=== PATIENT | female | born 1965 | race Caucasian/White ===

== ENCOUNTER 2018-02-02 17:30 | Emergency (ER) | payer OTHER ==
[~2018-02-02] VITALS: Ht 160 cm; Wt 77.1 kg
[2018-02-02 17:33] VITALS: Ht 160 cm; Wt 77.1 kg
--- NOTE | 2018-02-02 18:06 | EMERGENCY ROOM VISIT NOTE ---
History Report prepared by Rashel: Derrick Gamino Under the Supervision of: Dr. Katlin Morse D.O. First contact with patient: 17:40 Chief Complaint: MEDICATION REFILL REQUEST Stated Complaint: HAS NOT TAKEN MEDICATION FOR BIPOLAR DISORDER History of Present Illness The patient is a 52 year old female who presents to the Emergency Room with complaints of constant medication noncompliance for the past couple of months for her history of bipolar disorder. Patient is present with her daughter. Daughter states the patient has had "3 manic" episodes and intermittent "hyperness" during this period, which the patient states eventually resolved on its own. Daughter states she would like a "doctor to tell her mother to take her medication". Patient states she is supposed to 200mg of Lamictal and 750mg of [place]. Patient states she weaned off her medication because of the side effects she was experiencing, such as weight gain. Patient states she was not "feeling like herself". She states she wants to take her medication and would like to be followed by a psychiatrist in [place] who could "help her with her medication and dosing". Daughter states that her and her mother just moved to [place]. Patient states she is currently followed by a psychiatrist in [place] named Dr. Welch. She states she did not tell him about not taking her medication. Patient denies bowel/urinary symptoms, headaches, SI, and HI. Denies any recent illness or injury. Denies chest pain or trouble breathing. Source of History: patient, family (Daughter) Onset: Couple of months ago Position: head Timing: constant Modifying Factors (Relieving): other (None) Associated Symptoms: No headache, No urinary symptoms Note: Negative SI, HI, or bowel symptoms. Review of Systems See HPI for pertinent positives & negatives. A total of 10 systems reviewed and were otherwise negative. Past Medical & Surgical Medical Problems: (1) Bipolar disorder Surgical Problems: (1) History of appendectomy Family History FHx: cancer Heart disease Hypertension Lung disease Social History Smoking Status: Never Smoker Marital Status: Housing Status: lives with family Physical Exam Vital Signs Date Time Temp Pulse Resp B/P (MAP) Pulse Ox O2 Delivery O2 Flow Rate FiO2 02/02/18 19:05 37.0 77 18 170/91 94 02/02/18 17:33 37.0 77 18 186/91 94 Room Air Physical Exam GENERAL: alert, well appearing, well nourished, no distress, non-toxic EYE EXAM: normal conjunctiva, PERRL and EOM's grossly intact OROPHARYNX: no exudate, no erythema, lips, buccal mucosa, and tongue normal and mucous membranes are moist NECK: supple, no nuchal rigidity, no adenopathy, non-tender LUNGS: Clear to auscultation. Normal chest wall mechanics, no w/r/r HEART: no murmurs, S1 normal and S2 normal ABDOMEN: abdomen soft, non-tender, normo-active bowel sounds, no masses, no rebound or guarding. BACK: Back is symmetrical on inspection and there is no deformity, no midline tenderness, no CVA tenderness. SKIN: no rashes and no bruising UPPER EXTREMITIES: upper extremities are grossly normal. Full range of motion, normal pulses. LOWER EXTREMITIES: No pitting edema. Full range of motion, normal pulses. NEURO EXAM: Normal sensorium, cranial nerves II-XII grossly intact, normal speech, no gross weakness of arms, no gross weakness of legs. Normal gait, no ataxia, no facial droop. Medical Decision & Procedures ED Course 1800: The patient was evaluated in room A5. A complete history and physical exam was performed. 1815: Upon reevaluation, the patient is feeling better. I discussed the findings and the treatment plan with the patient. She verbalizes agreement and understanding. She was discharged home. Medical Decision Differential diagnosis: Etiologies such as mood disorder, infection, hypoglycemia, electrolyte abnormalities, cardiac sources, intracerebral event, toxicologic, neurologic, as well as others were entertained. Patient given additional outpatient referrals by psychiatric rn case manager hospice, Eze , regarding local psychiatrists accepting new patients. Patient well-appearing here, had no physical complaints. Discussed with her that I feel she is better served seeing her psychiatrist first before restarting medications they may want to start her at lower doses or on new medications altogether. Patient and daughter verbalized understanding of this and were planned. Patient denied any SI or HI here. Patient is not having significant scattered thoughts, flight of ideas, or inappropriate emotional responses. I feel patient is safe to be discharged to close outpatient follow-up. I did discuss with her symptoms to watch and return for, she verbalized understanding. Medication Reconcilliation Current Medication List: was personally reviewed by me Blood Pressure Screening Patient's blood pressure: Elevated blood pressure Blood pressure disposition: Elevated BP felt to be situational Impression Primary Impression: Bipolar disorder Additional Impression: Non-compliance Scribe Attestation The scribe's documentation has been prepared under my direction and personally reviewed by me in its entirety. I confirm that the note above accurately reflects all work, treatment, procedures, and medical decision making performed by me. Departure Information Dispostion Home / Self-Care Referrals No Doctor, Assigned (PCP) Patient Instructions My [facility] Additional Instructions Please continue your efforts to establish a local psychiatrist. Please do not ever stop taking medications without discussion with your doctor. If you have any new or concerning symptoms, have thoughts of wanting to hurt yourself or someone else, feel you are not thinking clearly or unable to make appropriate decisions, you have any other new concerns, please return the emergency room. Problem Qualifiers Primary Impression: Bipolar disorder Active/Remission status: currently active Current bipolar episode type: mixed Current episode severity: moderate Qualified Codes: F31.62 - Bipolar disorder, current episode mixed, moderate
[2018-02-02 19:05] VITALS: BP 170/91; PULSE 77; TEMP 37; O2SAT 94
[2018-02-02] MEDS ORDERED: LISI-461 PO ×2 (22:19)
[2018-02-02] MEDS ORDERED: LAMO100T16 PO ×2 (22:19)
[2018-02-02] MEDS ORDERED: LITH150C6 PO ×2 (22:19)
[2018-02-02] MEDS ORDERED: CHOL2000 PO ×2 (22:19)
[2018-02-02] MEDS ORDERED: LTHSR/300 PO ×2 (22:19)
[2018-02-02] MEDS ORDERED: LEVO88TA3 PO ×2 (22:19)
== END 2018-02-02 18:00 | disposition home or self-care (01) ==
LOC: C.EDB 17:32 → MERGE 17:32 → C.EDA 18:00
DX: Z91.14 Patient's other noncompliance with medication regimen (principal); F31.62 Bipolar disorder, current episode mixed, moderate

== ENCOUNTER 2018-02-02 20:27 | Inpatient (IN) | payer OTHER ==
[~2018-02-02] VITALS: Ht 160 cm; Wt 76.2 kg
[2018-02-02] MEDS ORDERED: PROCHLORPERAZINE 5 MG/ML 2 ML VIAL IV STA (21:02)
[2018-02-02] MEDS ORDERED: DiphenhydrAMINE HCL 50 MG/ML VIAL IV STA (21:02)
[2018-02-02] MEDS ORDERED: SODIUM CHLORIDE 0.9% 1000ML 1,000 ML IV ONE (21:02)
--- NOTE | 2018-02-02 21:08 | EMERGENCY ROOM VISIT NOTE ---
History Report prepared by Rashel: Sandy Solomon Under the Supervision of: Dr. Tima Poole M.D. First contact with patient: 20:47 Chief Complaint: HEADACHE Stated Complaint: HTN, HEADACHE, ANXIETY History of Present Illness The patient is a 52 year old female who presents to the Emergency Room with complaints of a severe, constant headache beginning about 1 hour ago. She states her "head is splitting open" and notes it came on suddenly. The patient nausea, trouble breathing, numbness, trembling, vision abnormalities or fevers. She was seen in the ED earlier today for anxiety, and expressed a desire to begin taking lithium again. The patient notes she took 750 mg lithium once she got home from the ED today. Her daughter notes the patient has a PCP but no regular psychiatrist as they are new to the area. The patient notes she takes Lisinopril for HTN but is unsure if she took it today. Her daughter notes the patient has had similar episodes of anxiety in the past, and was admitted to the hospital a few years ago for bipolar disorder and difficulties starting new medications. The patient and her daughter both believe the patient could benefit from an inpatient stay for anxiety. Source of History: patient, family (daughter) Onset: 1 hour ago Position: head Symptom Intensity: severe Quality: other (headache) Timing: constant Associated Symptoms: No fevers, No nausea, No numbness Note: Denies: trouble breathing, vision abnormalities, trembling Review of Systems See HPI for pertinent positives and negatives. A total of ten systems were reviewed and were otherwise negative. Past Medical & Surgical Medical Problems: (1) Bipolar disorder Surgical Problems: (1) History of appendectomy Family History FHx: cancer Heart disease Hypertension Lung disease Social History Smoking Status: Never Smoker Marital Status: Housing Status: lives with family Occupation Status: unemployed Current/Historical Medications Scheduled Cholecalciferol (Vitamin D3), 2,000 INTER.UNIT PO DAILY Lamotrigine (Lamictal), 200 MG PO DAILY Levothyroxine Sodium (Levothyroxine Sodium), 88 MCG PO DAILY Lisinopril (Zestril), 10 MG PO DAILY Miguel Barrera Carbonate (Miguel Barrera Carbonate), 150 MG PO DAILY Miguel Barrera Carbonate (Miguel Barrera Carbonate), 600 MG PO DAILY Physical Exam Vital Signs Date Time Temp Pulse Resp B/P (MAP) Pulse Ox O2 Delivery O2 Flow Rate FiO2 02/02/18 21:50 97 16 161/117 97 Room Air 02/02/18 20:50 67 02/02/18 20:39 36.6 75 20 173/93 95 Room Air Physical Exam GENERAL: Awake, alert, laying on stretcher, covering her face. HENT: Normocephalic, atraumatic. Oropharynx unremarkable. EYES: Normal conjunctiva. Sclera non-icteric. NECK: Supple. No nuchal rigidity. RESPIRATORY: Clear to auscultation. No wheezes. Normal respiratory effort. CARDIAC: Tachycardic. Normal rhythm. Extremities warm and well perfused. GI: Soft, non-distended. No tenderness to palpation. No rebound or guarding. No masses. RECTAL: Deferred. MUSCULOSKELETAL: Atraumatic. Chest examination reveals no tenderness. There is no CVA tenderness to palpation. LOWER EXTREMITIES: Calves are equal size bilaterally and non-tender. No edema NEURO: Normal sensorium. No sensory or motor deficits noted. No facial droop. SKIN: Warm and dry. No rash or jaundice noted. PSYCH: Denies SI, HI, hallucinations. Not responding to external stimuli. Occasionally laughing inappropriately. Medical Decision & Procedures Laboratory Results 02/02/18 21:44 Red Blood Count 4.80, Mean Corpuscular Volume 83.1, Mean Corpuscular Hemoglobin 28.5, Mean Corpuscular Hemoglobin Concent 34.3, Mean Platelet Volume 9.2, Neutrophils (%) (Auto) 56.9, Lymphocytes (%) (Auto) 34.8, Monocytes (%) (Auto) 5.1, Eosinophils (%) (Auto) 2.4, Basophils (%) (Auto) 0.6, Neutrophils # (Auto) 5.07, Lymphocytes # (Auto) 3.10, Monocytes # (Auto) 0.45, Eosinophils # (Auto) 0.21, Basophils # (Auto) 0.05 02/02/18 21:44 Test 02/02/18 20:31 02/02/18 21:44 Urine Color YELLOW Urine Appearance CLEAR (CLEAR) Urine pH 5.5 (4.5-7.5) Urine Specific [place] 1.011 (1.000-1.030) Urine Protein NEG (NEG) Urine Glucose (UA) NEG (NEG) Urine Ketones 1+ (NEG) Urine Occult Blood NEG (NEG) Urine Nitrite NEG (NEG) Urine Bilirubin NEG (NEG) Urine Urobilinogen NEG (NEG) Urine Leukocyte Esterase NEG (NEG) Urine Opiates Screen NEG (NEG) Urine Methadone, Qualitative NEG (NEG) Urine Barbiturates NEG (NEG) Urine Phencyclidine (PCP) Level NEG (NEG) Ur Amphetamine/Methamphetamine NEG (NEG) MDMA (Ecstasy) Screen NEG (NEG) Urine Benzodiazepines Screen NEG (NEG) Urine Cocaine Metabolite NEG (NEG) Urine Marijuana (THC) NEG (NEG) White Blood Count 8.90 K/uL (4.8-10.8) Red Blood Count 4.80 M/uL (4.2-5.4) Hemoglobin 13.7 g/dL (12.0-16.0) Hematocrit 39.9 % (37-47) Mean Corpuscular Volume 83.1 fL (80-100) Mean Corpuscular Hemoglobin 28.5 pg (25-34) Mean Corpuscular Hemoglobin Concent 34.3 g/dl (32-36) Platelet Count 259 K/uL (130-400) Mean Platelet Volume 9.2 fL (7.4-10.4) Neutrophils (%) (Auto) 56.9 % Lymphocytes (%) (Auto) 34.8 % Monocytes (%) (Auto) 5.1 % Eosinophils (%) (Auto) 2.4 % Basophils (%) (Auto) 0.6 % Neutrophils # (Auto) 5.07 K/uL (1.4-6.5) Lymphocytes # (Auto) 3.10 K/uL (1.2-3.4) Monocytes # (Auto) 0.45 K/uL (0.11-0.59) Eosinophils # (Auto) 0.21 K/uL (0-0.5) Basophils # (Auto) 0.05 K/uL (0-0.2) RDW Standard Deviation 38.7 fL (36.4-46.3) RDW Coefficient of Variation 12.8 % (11.5-14.5) Immature Granulocyte % (Auto) 0.2 % Immature Granulocyte # (Auto) 0.02 K/uL (0.00-0.02) Anion Gap 8.0 mmol/L (3-11) Est Creatinine Clear Calc Drug Dose 103.6 ml/min Estimated GFR () 119.7 Estimated GFR (Non- 103.3 BUN/Creatinine Ratio 18.6 (10-20) Calcium Level 9.9 mg/dl (8.5-10.1) Total Bilirubin 0.5 mg/dl (0.2-1) Direct Bilirubin 0.1 mg/dl (0-0.2) Aspartate Amino Transf (AST/SGOT) 53 U/L (15-37) Alanine Aminotransferase (ALT/SGPT) 52 U/L (12-78) Alkaline Phosphatase 80 U/L (45-117) Total Protein 7.5 gm/dl (6.4-8.2) Albumin 4.3 gm/dl (3.4-5.0) Thyroid Stimulating Hormone (TSH) 1.590 uIu/ml (0.300-4.500) Miguel Barrera Level 0.6 mMOL/L (0.6-1.2) Ethyl Alcohol mg/dL < 3.0 mg/dl (0-3) Laboratory results reviewed by me Medications Administered Medications (Trade) Dose Ordered Sig/Sergio Route Start Time Stop Time Status Last Admin Dose Admin Diphenhydramine HCl (Benadryl Inj) 50 mg NOW STAT IV 02/02/18 21:02 02/02/18 21:05 DC 02/02/18 21:48 50 MG Prochlorperazine Edisylate (Compazine Inj) 5 mg NOW STAT IV 02/02/18 21:02 02/02/18 21:05 DC 02/02/18 21:49 5 MG Sodium Chloride 1,000 ml @ 999 mls/hr Q1H1M ONCE IV 02/02/18 21:02 02/02/18 22:02 DC 02/02/18 21:49 999 MLS/HR ECG Per My Interpretation Indication: other (HTN) Rate (beats per minute): 69 Rhythm: normal sinus Findings: other (no ST segment elevation. normal axis. ) Comparison ECG Date: no prior available ED Course 2050: The patient was evaluated in room B10. A complete history and physical exam was performed. 2101: Ordered Sodium Chloride 1000 ml @ 999 mls/hr IV, Compazine Inj 5 mg IV, Benadryl Inj 50 mg IV. 2200: I reevaluated the patient and updated her and her family. 5: Upon reevaluation, the patient is experiencing improvement of her headache. She is ambulating to the bathroom. 0015: Patient continues to have odd behavior and after psychiatric liaison evaluation feel that she requires inpatient care. 0028: Patient signs 201. 0030: Signed out to production supervisor off shift MD Omer. Medical Decision Etiologies such as migraine headache, meningitis, sinusitis, CO exposure, ICH, SAH, tumor, sinus thrombosis, arterial dissection, mood disorder, infection, hypoglycemia, electrolyte abnormalities, cardiac sources, intracerebral event, toxicologic, neurologic, as well as others were entertained. Patient presents from home today complaining of headache and feeling extremely anxious. Was seen here earlier today and has a history of bipolar disorder off her medications. Her home and took her lithium and began to experience some headache and being more anxious. Was previously offered her psychotropic medications for months. Lives at home with her adult daughter and 2 teenage sons. Adult daughter has serious concerns about taking her home. Patient denies any SI or HI. Prior history of multiple inpatient psychiatric stays. Blood pressure is elevated and she is unsure she took her blood pressure medicine today. No trauma. Doubt subarachnoid hemorrhage or stroke. Treated symptomatically here with some Benadryl and a little bit of Compazine with improvement. Patient is inappropriate laughing during exam. No SI or HI but I believe inpatient psychiatric care for her anxiety and psychosis is indicated. Will have psychiatric case liaison evaluate her as well. Miguel Barrera level nontoxic. Medical workup is benign. Patient extremely anxious initially planned for head CT but after treatment she felt improved and do not believe it is medically necessary. Give home dose of lisinopril; states she thinks that she missed her dose today. Feel she is medically cleared for inpatient psychiatric care if she is deemed appropriate for that. Patient on re- evaluation continues to behave somewhat bizarrely with an appropriate laughter at times. Feel that her ability to care for herself is compromised. Feel that inpatient psychiatric care is warranted at this time for anxiety and traci. Patient signed 201, but 302 grounds exist. Patient to be evaluated by her inpatient psychiatric team here for possible admission here. Bed search will otherwise be conducted she requires inpatient psychiatric care. Medication Reconcilliation Current Medication List: was personally reviewed by me Blood Pressure Screening Patient's blood pressure: Elevated blood pressure Blood pressure disposition: Referred to PCP Impression Primary Impression: Anxiety Additional Impression: HTN (hypertension) Scribe Attestation The scribe's documentation has been prepared under my direction and personally reviewed by me in its entirety. I confirm that the note above accurately reflects all work, treatment, procedures, and medical decision making performed by me. Departure Information Dispostion Other Referrals No Doctor, Assigned (PCP) Forms HOME CARE DOCUMENTATION FORM, IMPORTANT VISIT INFORMATION Patient Instructions My [facility] Problem Qualifiers
[2018-02-02 22:04] LABS: BASO % 0.6 %; BASO ABS # 0.05 K/uL (0-0.2); EOS % 2.4 %; EOS ABS # 0.21 K/uL (0-0.5); HEMATOCRIT 39.9 % (37-47); HEMOGLOBIN 13.7 g/dL (12.0-16.0); IG# 0.02 K/uL (0.00-0.02); LYMPH % 34.8 %; MEAN CELL VOLUME 83.1 fL (80-100); MEAN CORPUSCULAR HEMOGLOBIN 28.5 pg (25-34); MEAN CORPUSCULAR HGB CONC 34.3 g/dl (32-36); MEAN PLATELET VOLUME 9.2 fL (7.4-10.4); MONO % 5.1 %; MONO ABS # 0.45 K/uL (0.11-0.59); NEUT % 56.9 %; NEUT ABS # 5.07 K/uL (1.4-6.5); PLATELET COUNT 259 K/uL (130-400); RED CELL DISTRIBUTION WIDTH CV 12.8 % (11.5-14.5); RED CELL DISTRIBUTION WIDTH SD 38.7 fL (36.4-46.3)
[2018-02-02] MEDS ORDERED: LAMO100T16 PO ×2 (22:19)
[2018-02-02] MEDS ORDERED: LITH150C6 PO ×2 (22:19)
[2018-02-02] MEDS ORDERED: LTHSR/300 PO ×2 (22:19)
[2018-02-02] MEDS ORDERED: LEVO88TA3 PO ×2 (22:19)
[2018-02-02] MEDS ORDERED: CHOL2000 PO ×2 (22:19)
[2018-02-02] MEDS ORDERED: LISI-461 PO ×2 (22:19)
[2018-02-02 22:32] LABS: ALBUMIN 4.3 gm/dl (3.4-5.0); CALCIUM 9.9 mg/dl (8.5-10.1); CREATININE 0.64 mg/dl (0.60-1.20); POTASSIUM 3.4 mmol/L (3.5-5.1); TOTAL PROTEIN 7.5 gm/dl (6.4-8.2)
[2018-02-03] MEDS ORDERED: LISINOPRIL 5 MG TAB ONE (00:39)
[2018-02-03] MEDS ORDERED: LISINOPRIL 10 MG TAB PO ONE (00:45)
[2018-02-03] MEDS ORDERED: NURSING VERBAL MED ORDER ONE ×4 (02:00→21:00)
[2018-02-03 02:25] VITALS: O2SAT 98
[2018-02-03] MEDS ORDERED: PATIENT'S ALLERGY INFO NEEDS ENTERED SCH (02:30)
--- NOTE | 2018-02-03 02:32 | EMERGENCY ROOM VISIT NOTE ---
ED Visit Note This case was signed out to me at change of shift awaiting bed placement. Dr. Poole explained that the patient would require inpatient psychiatric care. She had signed a 201. The patient was being evaluated by staff from [facility] They communicated with the emergency department psychiatric transplant case manager that they were unsure whether the patient would meet criteria for inpatient psychiatric care. I evaluated the patient at that time and she exhibited bizarre behavior. She was laughing inappropriately during my conversation with her and her daughter. She was making unintelligible sounds and bizarre word patterns. I could not redirect her easily. In fact she was unable to answer any of my questions except when I asked her if she felt she needed some inpatient psychiatric care she said "definitely." I am concerned that the patient is unable to care for herself at home. Her young daughter is unable to care for her at home. I discussed the case with the staff from [facility] the ediscovery project manager, and Dr. Marrufo. She is willing to admit herself voluntarily. She has been accepted to [facility].
[2018-02-03] MEDS ORDERED: ALUMINUM/MAGNESIUM SUSP 30 ML UDC PO PRN (03:15)
[2018-02-03] MEDS ORDERED: BISMUTH SUBSALICYLATE PER ML OMNICELL CHARGE PO PRN (03:15)
[2018-02-03] MEDS ORDERED: SODIUM CHLORIDE 0.65% NA SOLN 45 ML (OCEAN) PRN (03:15)
[2018-02-03] MEDS ORDERED: MAGNESIUM HYDROXIDE SUSP 30 ML UDC PO PRN (03:15)
[2018-02-03] MEDS ORDERED: ACETAMINOPHEN 325 MG TAB PO PRN (03:15)
[2018-02-03] MEDS ORDERED: hydrOXYzine HCL 25 MG TAB PO PRN (03:15)
[2018-02-03 05:05] VITALS: BP 164/98; PULSE 75; TEMP 36.3; Ht 160 cm; Wt 76.2 kg
[2018-02-03] MEDS: hydrOXYzine HCL 25 MG TAB PO PRN ×2 (06:31→16:28)
[2018-02-03] MEDS: LISINOPRIL 10 MG TAB PO SCH (08:12)
[2018-02-03] MEDS: LEVOTHYROXINE 88 MCG TAB PO SCH (08:12)
[2018-02-03] MEDS: RISPERIDONE 0.5 MG TAB PO PRN ×3 (08:12→17:37)
--- NOTE | 2018-02-03 09:10 | Psychiatric History & Physical ---
History Date of Service Feb 03, 2018. Identifying Data China Sotelo is a 52-year-old admitted on who currently lives in [place] with her children, has a history of bipolar disorder, and presented with traci in the context of medication noncompliance. She was admitted on a 201 voluntary admission, after 2 presentations to the emergency room in <24 hours. Chief Complaint "I had to relax, I didn't want to rest, my kids, I don't know, I'm very confused ". History of Present Illness According to ER records, the patient initially presented yesterday evening requesting medication refills for lamotrigine 200 mg daily and lithium 750 mg daily, reporting a history of bipolar disorder and stating she had been noncompliant with medications for an unclear amount of time; later stated she stopped her medications while she was in [place] visiting relatives, and returned to [place] January 16. Her daughter accompanied her and reported that the patient has had several manic episodes since stopping her medications, and wanted a "doctor to tell her to take her medication." The patient said she had stopped the medications on her own due to weight gain, but was not "feeling like herself," and wanted to resume medication and follow-up with a local psychiatrist. She reported previously being seen by a psychiatrist, Dr. Ventura, in [place], but had not set up services since moving to [place]. Her exam was normal, and she was discharged with advice to follow up with her psychiatrist before restarting medications due to concerns about appropriate doses, and to arrange follow-up with a local psychiatrist. She represented to the emergency room within hours, reporting a severe headache and anxiety, stating she had gone home and taken 750 mg of lithium. It was unclear if she was taking her home antihypertensives, and blood pressure was 173/93. She received IV fluids, Compazine, and diphenhydramine, and headache improved. Her daughter endorse concerns about taking her home, stating she had not slept in several days, and patient was hyperverbal, appeared to be responding to internal stimuli, behaving bizarrely and laughing inappropriately during the exam. At time she was incoherent, switching between Latvian and Nicaraguan, and could not answer basic questions appropriately. She agreed to voluntary admission, and after arriving on the unit, was labile, hyperverbal, endorsed racing thoughts, auditory hallucinations of voices, poor sleep, irritability, restlessness, and inability to function. She appeared distressed and was wailing at times. She slept poorly, and received hydroxyzine and risperidone 0.5 mg as needed. She was placed in a medically necessary private room due to her behavior, as she has been loud, pacing, hyperverbal, and extremely distraught. On my assessment, she was initially in her room, confused and having difficulty dressing herself, and took an extended period of time to get to the interview room. She states she does not need an human geography instructor, as she speaks and understands Nicaraguan well. Reports a history of bipolar type I diagnosed around age 46, stating "I was in the shower for an extended period of time, didn't want to get out, I was numb, was crying and crying..." She progresses to talk about pictures of Mickey, the number 39, while rocking back and forth. She is often unable to answer questions directly, or answers with unrelated information. She describes mood as "a mess," for about the past 3 weeks since she returned from [place]. Says mood was good in [place], and she went off her medication while there, "I think it was when I went to this concert with my son. 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 at [employer], reciting his email address, and then talking about a cook. She endorses racing thoughts, confusion, feeling overwhelmed, poor sleep , feeling distraught, and AH. Describes AH of "my grandpa, in my dreams, the best feeling, my hands like this." She is unsure if this occurs when she is asleep or awake. She reports feeling anxious, cannot clarify further. Denies thoughts of harming herself or others. She cannot state how we can help her here , saying "can I lay down?" then saying "no, no we need to do it now, time is wasting!" She wants me to contact Dr. Putnam (sp?) but cannot tell me who that is or where he practices. Past Psychiatric History Current OP Treatment: psychiatrist (Dr. Sulaiman Welch in [place] - states she last saw him 01/21/18) Prior Psych Hospitalizations: other (3 psychiatric hospitalizations in the past 8 years -[facility] in [place] and 2015 or 16, [facility] in [facility] in 2013, and [facility] in [place] in 2009.) Access to a Gun: No Suicide Attempts: No Past Medication Trials Include but not limited to: Wayside and lamotrigine as above - was on this combo about 7 years, took herself off of them in the past couple of months without informing her outpatient psychiatrist. Depakote - unsure who prescribed it or when, possibly during previous hospitalization - "it scared me to ," cannot clarify further. risperidone - unsure when, thinks she "was on it once." alprazolam - "for relaxation, but I couldn't drive with it." temazepam - for sleep unsure if there were others Past Medical/Surgical History (1) HTN (hypertension) (2) Overweight (BMI 25.0-29.9) PCP Dr. Garima Bolton Allergies Allergies: Coded Allergies: No Known Allergies (Unverified , 02/03/18) patient states she has no known drug or food allergies Home Medications Scheduled Cholecalciferol (Vitamin D3), 2,000 INTER.UNIT PO DAILY Lamotrigine (Lamictal), 200 MG PO DAILY Levothyroxine Sodium (Levothyroxine Sodium), 88 MCG PO DAILY Lisinopril (Zestril), 10 MG PO DAILY Wayside Carbonate (Wayside Carbonate), 150 MG PO DAILY Wayside Carbonate (Wayside Carbonate), 600 MG PO DAILY Family History FHx: cancer Heart disease Hypertension Lung disease History of Suicide: No History of Substance Abuse: No Psychiatric History: Yes (Aunt with depression and uncle with bipolar disorder. ) Alcohol Use Alcohol Use In Past 12 Months: Yes (drinks wine in social settings; once a month or less, typically 1 drink. Denies any history of problems related to alcohol intake.) AUDIT Total Score: 1 Smoking Use Smoking Status: Never Smoker Substance History Denies abusing substances or use of recreational drugs. Personal History Lives in: [place] with her 3 children Childhood: From [place]. Moved to the [place] 1992 - [place]. Lived in [place] in the late , and again moved to [place] in 02/2017, when asked why, states "I don't know, I felt it...that's crazy, that's crazy, it doesn't make sense." Education: advanced degree (Master's) Work History: Unemployed. 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 Cannot give further information, tearful when asked about employment history, talking about "that's when I saw him..." Says her parents support her financially. Relationship History: (Patient states she is divored, then says she is . She wants to know if her is here.) Children: 21-year-old daughter, and 2 sons ages 16 and 14 Legal History: none Psychological Trauma History: Denies Hx Traumatic Event Review of Systems 10 systems reviewed, +tiredness, others negative except as stated above. Examination Physical Examination A physical exam was performed in the ER prior to admission to the unit by Dr Tima Poole. I accept that physical as correct/medical clearance for the inpatient physical exam. Mental Examination During interview pt is: cooperative Appearance: appropriately groomed, other (bizarre dress - has sweater on inside out, with arms inside the body) Eye contact is: fair Motor behavior is: steady gait & station (slowed), other (odd posturing, holding hands in front of face with fingers pressed together, rubbing the sole of her foot across the floor repeatedly) Speech: is pressured (hyperverbal, accented but fluent Nicaraguan) Affect: labile (distraught) Thought process: tangential, looseness of associations, other (provides excessive and uneccasry detail, for example reciting people's email addresses when telling stories) Thought content: paranoid (wanting to check this physician's ID to see "if that 's really your face.") Suicidal thought are: denied Homicidal thoughts are: denied Hallucinations: auditory (voices) Cognition: language grossly intact, other (memory and attention are impaired) Intelligence estimated to be: consistent with level of education Insight: impaired Judgement: impaired Impression / Recommendations Impression 52-year-old female with a history of bipolar disorder type I who lives in [place] with her 3 children, has a psychiatrist in [place] but has been noncompliant with medications, and presented to the ER twice yesterday with unstable mood and anxiety. She appears manic and psychotic, was ultimately admitted voluntarily, and has been resumed on lithium and risperidone added while we gather additional information. She appears manic and psychotic, is distraught and has not been sleeping. We will need collateral information from family and her outpatient psychiatrist if she is a limited historian. Her daughter did not feel able to manage her symptoms and behaviors at home, and she is also responsible for 2 minor children. Inpatient treatment is medically necessary due to the severity of her symptoms and her inability to function without the care and assistance of others. Inventory Assets Strengths: Supportive family, has been in treatment in the past Needs: Medications, collateral information about past treatments/course of illness, local outpatient care Risk Factors Assessment : No /single/: Yes Higher / Fall in social status: No Access to guns: No Health problems: Yes Mental Health Diagnoses: Yes Substance use disorders: No Previous attempt: No Family history of suicide: No Previous psychiatric stay: Yes Hopelessness: Yes Smoker: No Protective Factors Assessment : No Responsible for young children: Yes Employed: No Supportive family: Yes Absence of risk factors above: No (Unable to care for self, daughter states inability to manage her current symptoms and behaviors at home, has no outpatient providers locally, has been noncompliant with medications.) Recommendations (1) Bipolar disorder 02/03 -presents with labile, distraught mood, poor sleep, racing thoughts, loose associations, disorganized thoughts and behavior, paranoia, and auditory hallucinations. She has not been able to provide for her basic needs, and daughter feels unable to care for her at home. She took herself off lithium and lamotrigine about a month ago while on vacation in [place], and mood has decompensated since. -Wayside 750 mg at bedtime resumed yesterday, will continue and schedule a trough level for 02/07/2018. -Patient reports previous use of risperidone, so have started risperidone 0.5 mg as needed for psychosis/traci and 1 mg at bedtime to assist with symptoms and sleep. Fasting glucose and lipid profile ordered for tomorrow for monitoring on an atypical antipsychotic. -Consider need to resume lamotrigine, would need to start over with 25mg daily due to being off it for around a month. -Current psychiatrist is Dr. Sulaiman Welch in [place]; patient signed an KATHERYN and we will request records.I called him ([phone]) and left a message today requesting a call back to nursing station for collateral and to coordinate care. -Continue medically necessary private room until symptoms and behaviors are under better control. -Every 15 minute checks for safety, encourage attendance and participation in groups once she is able to tolerate them, and involve family as able. Will likely need a family meeting with her adult daughter. -Staff confirmed with adult daughter that her 2 sons are with their fathers. -She will need referral for local outpatient psychiatric care. (2) Noncompliance with medications 02/03 -gather information and continue to explore the patient's reasons for noncompliance which she is less disorganized. Provide psychoeducation regarding the risks of ongoing poor compliance. Consider possible benefits of a long-acting injectable if noncompliance is a chronic issue. (3) HTN (hypertension) 02/03 -resume home dose of lisinopril, and monitor blood pressure. Was hypertensive on admission, but blood pressure came down to 153/88 after her lisinopril this morning. CPT Code Initial Hospital Care: 57964 Problem Qualifiers (1) Bipolar disorder: Active/Remission status: currently active Current bipolar episode type: manic Current episode severity: severe Psychotic features: with psychotic features Qualified Codes: F31.2 - Bipolar disorder, current episode manic severe with psychotic features
[2018-02-03] MEDS ORDERED: RISPERIDONE 0.5 MG TAB PO ONE (10:30)
[2018-02-03] MEDS ORDERED: CLONAZEPAM 1 MG TAB ONE (17:57)
[2018-02-03] MEDS ORDERED: CLONAZEPAM 1 MG TAB PO ONE (18:00)
[2018-02-03] MEDS: RISPERIDONE 1 MG TAB PO SCH (21:05)
[2018-02-03] MEDS: LITHIUM CARBONATE 300 MG TAB PO SCH (21:05)
[2018-02-03] MEDS: CLONAZEPAM 1 MG TAB PO PRN (21:05)
[2018-02-04] MEDS: CLONAZEPAM 1 MG TAB PO PRN (04:32)
[2018-02-04 06:48] VITALS: BP_SYST 136; BP_SYST 140; BP_DIAS 90; BP_DIAS 97; PULSE 77; PULSE 90; TEMP 36.4
[2018-02-04] MEDS: LEVOTHYROXINE 88 MCG TAB PO SCH (10:19)
[2018-02-04] MEDS: LISINOPRIL 10 MG TAB PO SCH (10:20)
--- NOTE | 2018-02-04 10:26 | Psychiatric Progress Notes ---
Progress Note Date of Service Feb 04, 2018. 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 Chief Complaint "Yes I'm tired.". Subjective Patient was seen & assessed interval progress reviewed with Treatment Team. The patient is still in bed at the time of the interview. She arouses to verbal. It is difficult for her to keep her eyes open, and several times fell back to sleep. She slips back and forth between south african and montserratian. she denies that she is having hallucinations. When asked if her traci is slowing down she says yes, and knows this because she is no longer hearing music. Nursing reports that she was quite agitated last evening, grabbing one of the staff members and making sexually charged comments. She was given her HS meds and a prn of klonopin at that time and slept for 9 hours over the night. Supplemental information was obtained from the patient's eldest daughter yesterday confirming reports that the patient took herself off meds while she was in [place] earlier in the summer Review of Systems Constitutional: + fatigue ENT: No hearing loss, No unusual epistaxis, No nasal symptoms, No sore throat, No tinnitus, No dental problems, No trouble swallowing, No problem reported Respiratory: No cough, No sputum, No wheezing, No shortness of breath, No dyspnea on exertion, No dyspnea at rest, No hemoptysis, No problem reported Cardiovascular: No chest pain, No orthopnea, No PND, No edema, No claudication , No palpitations, No problem reported Abdomen: No pain, No nausea, No vomiting, No diarrhea, No constipation, No GI bleeding, No problem reported Musculoskeletal: No joint pain, No muscle pain, No swelling, No calf pain, No problem reported Neurologic: No memory loss, No paralysis, No weakness, No numbness/tingling, No vertigo, No balance problems, No problem reported Psychiatric: + problem reported (traci improving) Integumentary: No rash, No itch, No new/changing skin lesions, No color change , No bleeding, No problem reported Sleep Information Total Hours of Sleep: 9.00 Meal Information Percent of Breakfast Consumed: 75 Percent of Lunch Consumed: 100 Percent of Dinner Consumed: 75 Mental Status Exam During interview pt is: cooperative (but tired and unable to fully participate ) Appearance: disheveled Eye contact is: other (limited) Motor behavior is: other (lying in bed) Speech: other (tired sounding, in and out of montserratian/south african) Affect: other (tired) Mood is: other (not stated) Thought process: tangential, looseness of associations, other (provides excessive and uneccasry detail, for example reciting people's email addresses when telling stories) Thought content: other (difficult to determine as she speak montserratian part of the time) Suicidal thought are: denied Homicidal thoughts are: denied Cognition: language grossly intact, other (memory and attention are impaired) Intelligence estimated to be: consistent with level of education Insight: impaired Judgement: impaired Impression Impulsive, at times agressive behaviors with hypersexuality. Today is slowing down some, tired from meds. Hopefully if sleep improves, so will traci, but will add Risperdal 0.5 mg. in the AM in view of last evenings events. Plan (1) Bipolar disorder 02/03 -presents with labile, distraught mood, poor sleep, racing thoughts, loose associations, disorganized thoughts and behavior, paranoia, and auditory hallucinations. She has not been able to provide for her basic needs, and daughter feels unable to care for her at home. She took herself off lithium and lamotrigine about a month ago while on vacation in [place], and mood has decompensated since. -Fairview-Ferndale 750 mg at bedtime resumed yesterday, will continue and schedule a trough level for 02/07/2018. -Patient reports previous use of risperidone, so have started risperidone 0.5 mg as needed for psychosis/traci and 1 mg at bedtime to assist with symptoms and sleep. Fasting glucose and lipid profile ordered for tomorrow for monitoring on an atypical antipsychotic. -Consider need to resume lamotrigine, would need to start over with 25mg daily due to being off it for around a month. -Current psychiatrist is Dr. Sulaiman Welch in [place]; patient signed an KATHERYN and we will request records.I called him ([phone]) and left a message today requesting a call back to nursing station for collateral and to coordinate care. -Continue medically necessary private room until symptoms and behaviors are under better control. -Every 15 minute checks for safety, encourage attendance and participation in groups once she is able to tolerate them, and involve family as able. Will likely need a family meeting with her adult daughter. -Staff confirmed with adult daughter that her 2 sons are with their fathers. -She will need referral for local outpatient psychiatric care. 02/04 - Increase Risperdal to include 0.5 mg qam - Continue other meds (2) Noncompliance with medications 02/03 -gather information and continue to explore the patient's reasons for noncompliance which she is less disorganized. Provide psychoeducation regarding the risks of ongoing poor compliance. Consider possible benefits of a long-acting injectable if noncompliance is a chronic issue. (3) HTN (hypertension) 02/03 -resume home dose of lisinopril, and monitor blood pressure. Was hypertensive on admission, but blood pressure came down to 153/88 after her lisinopril this morning. Discharge / Aftercare Planning Primary Care Physician: Name: Unknown Therapist: Name: Graham Whitney Library Media Assistant: Name: Blaze Visit Code E&M Code: 44872 Inventory Assets Strengths: Supportive family, has been in treatment in the past Needs: Medications, collateral information about past treatments/course of illness, local outpatient care Risk Factors Assessment : No /single/: Yes Higher / Fall in social status: No Health problems: Yes Mental Health Diagnoses: Yes Substance use disorders: No Previous attempt: No Family history of suicide: No Previous psychiatric stay: Yes Hopelessness: Yes Smoker: No Protective Factors Assessment : No Responsible for young children: Yes Employed: No Supportive family: Yes Absence of risk factors above: No (Unable to care for self, daughter states inability to manage her current symptoms and behaviors at home, has no outpatient providers locally, has been noncompliant with medications.) Data Vital Signs Last 24 Hrs: Date Time Temp Pulse Resp B/P (MAP) Pulse Ox O2 Delivery O2 Flow Rate FiO2 02/04/18 06:48 36.4 77 16 140/97 90 136/90 02/04/18 00:15 Meds Administered Last 24 Hrs: Meds Administered (Past 24Hrs) Medications (Trade) Dose Ordered Sig/Sergio Route Start Time Stop Time Status Last Admin Dose Admin Diphenhydramine HCl (Benadryl Inj) 50 mg NOW STAT IV 02/02/18 21:02 02/02/18 21:05 DC 02/02/18 21:48 50 MG Prochlorperazine Edisylate (Compazine Inj) 5 mg NOW STAT IV 02/02/18 21:02 02/02/18 21:05 DC 02/02/18 21:49 5 MG Sodium Chloride 1,000 ml @ 999 mls/hr Q1H1M ONCE IV 02/02/18 21:02 02/02/18 22:02 DC 02/02/18 21:49 999 MLS/HR Lisinopril (Zestril Tab) 10 mg STK-MED ONCE .ROUTE 02/03/18 00:39 02/03/18 00:40 DC 02/03/18 00:49 10 MG Acetaminophen (Tylenol Tab) 650 mg Q4H PRN PO 02/03/18 03:15 03/05/18 03:14 02/03/18 03:55 650 MG Al Hydroxide/Mg Hydroxide (Maalox Susp) 30 ml Q4H PRN PO 02/03/18 03:15 03/05/18 03:14 02/03/18 03:32 30 ML Hydroxyzine HCl (Vistaril Tab) 25 mg Q4H PRN PO 02/03/18 03:15 03/05/18 03:14 02/03/18 16:28 25 MG Levothyroxine Sodium (Synthroid Tab) 88 mcg DAILYBB PO 02/03/18 08:00 03/05/18 07:59 02/03/18 08:12 88 MCG Lisinopril (Zestril Tab) 10 mg DAILY PO 02/03/18 09:00 03/05/18 08:59 02/03/18 08:12 10 MG Fairview-Ferndale Carbonate (Fairview-Ferndale Carbonate Tab) 750 mg HS PO 02/03/18 22:00 03/05/18 21:59 02/03/18 21:05 750 MG Risperidone (Risperdal Tab) 0.5 mg Q4H PRN PO 02/03/18 08:00 03/05/18 07:59 02/03/18 17:37 0.5 MG Risperidone (Risperdal Tab) 0.5 mg NOW ONCE PO 02/03/18 10:30 02/03/18 10:51 DC 02/03/18 10:53 0.5 MG Risperidone (Risperdal Tab) 1 mg HS PO 02/03/18 22:00 03/05/18 21:59 02/03/18 21:05 1 MG Clonazepam (Klonopin Tab) 1 mg TODAY@1800 ONCE PO 02/03/18 18:00 02/03/18 18:01 DC 02/03/18 17:58 1 MG Clonazepam (Klonopin Tab) 1 mg TID PRN PO 02/03/18 21:15 03/05/18 21:14 02/04/18 04:32 1 MG Lab Results Last 24 Hrs: Last 24 Hours Test 02/04/18 08:13 Fasting Glucose 90 mg/dl Triglycerides Level 72 mg/dl Cholesterol Level 154 mg/dl HDL Cholesterol 51 mg/dl LDL Cholesterol, Calculated 89 mg/dl VLDL Cholesterol, Calculated 14 mg/dl Cholesterol/HDL Ratio 3.0 Problem Qualifiers (1) Bipolar disorder: Active/Remission status: currently active Current bipolar episode type: manic Current episode severity: severe Psychotic features: with psychotic features Qualified Codes: F31.2 - Bipolar disorder, current episode manic severe with psychotic features
[2018-02-04] MEDS: LITHIUM CARBONATE 300 MG TAB PO SCH (21:37)
[2018-02-04] MEDS: RISPERIDONE 1 MG TAB PO SCH (21:37)
[2018-02-05 06:44] VITALS: BP_SYST 133; BP_SYST 137; BP_DIAS 86; BP_DIAS 89; PULSE 73; PULSE 81; TEMP 36.7
--- NOTE | 2018-02-05 07:57 | Psychiatric Progress Notes ---
Progress Note Date of Service Feb 05, 2018. 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 Chief Complaint "I'm doing fine, I want to say 'great', but I know I have to choose my words carefully for psychotic reasons, but honestly I feel great". Subjective Patient was seen & assessed interval progress reviewed with Nursing. Staff report the patient is beginning to stabilize. She is redirectable with boundaries on the unit. Review of Systems Psych: denies symptoms other than stated above Constitutional: reports occasional fatigue Cardiovascular: denied GI: denied Neurologic: denied Remainder of 10 body systems also reviewed and denied other than noted above. Sleep Information Total Hours of Sleep: 5.50 Meal Information Percent of Breakfast Consumed: 75 Percent of Lunch Consumed: 10 Percent of Dinner Consumed: 10 Mental Status Exam During interview pt is: cooperative Appearance: appropriately dressed, appropriately groomed Eye contact is: good, other Motor behavior is: steady gait & station, no abnormal motor movements Speech: normal in rate, rhythm & volume (heavy Occitan accent) Affect: mood congruent, euthymic Mood is: other ("I feel great") Thought process: goal directed, circumstantial Thought content: reality based without delusions Suicidal thought are: denied Homicidal thoughts are: denied Cognition: memory grossly intact, attention grossly intact, language grossly intact Intelligence estimated to be: consistent with level of education Insight: impaired Judgement: impaired Impression Pt appearing less impulsive and manic today. More goal-directed in conversation. Reporting frequent sleep, but denies grogginess. Tolerating medications well. Will require meeting to involve outpatient supports to ensure safety prior to discharge. Plan (1) Bipolar disorder 02/03 -presents with labile, distraught mood, poor sleep, racing thoughts, loose associations, disorganized thoughts and behavior, paranoia, and auditory hallucinations. She has not been able to provide for her basic needs, and daughter feels unable to care for her at home. She took herself off lithium and lamotrigine about a month ago while on vacation in [place], and mood has decompensated since. -[place]ar[place] 750 mg at bedtime resumed yesterday, will continue and schedule a trough level for 02/07/2018. -Patient reports previous use of risperidone, so have started risperidone 0.5 mg as needed for psychosis/traci and 1 mg at bedtime to assist with symptoms and sleep. Fasting glucose and lipid profile ordered for tomorrow for monitoring on an atypical antipsychotic. -Consider need to resume lamotrigine, would need to start over with 25mg daily due to being off it for around a month. -Current psychiatrist is Dr. Sulaiman Welch in [place]; patient signed an KATHERYN and we will request records.I called him ([phone]) and left a message today requesting a call back to nursing station for collateral and to coordinate care. -Continue medically necessary private room until symptoms and behaviors are under better control. -Every 15 minute checks for safety, encourage attendance and participation in groups once she is able to tolerate them, and involve family as able. Will likely need a family meeting with her adult daughter. -Staff confirmed with adult daughter that her 2 sons are with their fathers. -She will need referral for local outpatient psychiatric care. 02/04 - Increase Risperdal to include 0.5 mg qam - Continue other meds 02/05 - Continue current medication regimen and treatment plan (2) Noncompliance with medications 02/03 -gather information and continue to explore the patient's reasons for noncompliance which she is less disorganized. Provide psychoeducation regarding the risks of ongoing poor compliance. Consider possible benefits of a long-acting injectable if noncompliance is a chronic issue. (3) HTN (hypertension) 02/03 -resume home dose of lisinopril, and monitor blood pressure. Was hypertensive on admission, but blood pressure came down to 153/88 after her lisinopril this morning. Discharge / Aftercare Planning Primary Care Physician: Name: Unknown Therapist: Name: Dr. Sulaiman Welch [place] Substation Mechanic: Name: Blaze Visit Code E&M Code: 76451 Inventory Assets Strengths: Supportive family, has been in treatment in the past Needs: Medications, collateral information about past treatments/course of illness, local outpatient care Risk Factors Assessment : No /single/: Yes Higher / Fall in social status: No Health problems: Yes Mental Health Diagnoses: Yes Substance use disorders: No Previous attempt: No Family history of suicide: No Previous psychiatric stay: Yes Hopelessness: Yes Smoker: No Protective Factors Assessment : No Responsible for young children: Yes Employed: No Supportive family: Yes Absence of risk factors above: No (Unable to care for self, daughter states inability to manage her current symptoms and behaviors at home, has no outpatient providers locally, has been noncompliant with medications.) Data Vital Signs Last 24 Hrs: Date Time Temp Pulse Resp B/P (MAP) Pulse Ox O2 Delivery O2 Flow Rate FiO2 02/05/18 06:44 36.7 73 16 137/86 81 133/89 Meds Administered Last 24 Hrs: Meds Administered (Past 24Hrs) Medications (Trade) Dose Ordered Sig/Sergio Route Start Time Stop Time Status Last Admin Dose Admin Levothyroxine Sodium (Synthroid Tab) 88 mcg DAILYBB PO 02/03/18 08:00 03/05/18 07:59 02/04/18 10:19 88 MCG Lisinopril (Zestril Tab) 10 mg DAILY PO 02/03/18 09:00 03/05/18 08:59 02/04/18 10:20 10 MG Spearfish Carbonate (Spearfish Carbonate Tab) 750 mg HS PO 02/03/18 22:00 03/05/18 21:59 02/04/18 21:37 750 MG Risperidone (Risperdal Tab) 0.5 mg Q4H PRN PO 02/03/18 08:00 03/05/18 07:59 02/03/18 17:37 0.5 MG Risperidone (Risperdal Tab) 0.5 mg NOW ONCE PO 02/03/18 10:30 02/03/18 10:51 DC 02/03/18 10:53 0.5 MG Risperidone (Risperdal Tab) 1 mg HS PO 02/03/18 22:00 03/05/18 21:59 02/04/18 21:37 1 MG Clonazepam (Klonopin Tab) 1 mg TODAY@1800 ONCE PO 02/03/18 18:00 02/03/18 18:01 DC 02/03/18 17:58 1 MG Clonazepam (Klonopin Tab) 1 mg TID PRN PO 02/03/18 21:15 03/05/18 21:14 02/04/18 04:32 1 MG Lab Results Last 24 Hrs: Last 24 Hours Test 02/04/18 08:13 Fasting Glucose 90 mg/dl Triglycerides Level 72 mg/dl Cholesterol Level 154 mg/dl HDL Cholesterol 51 mg/dl LDL Cholesterol, Calculated 89 mg/dl VLDL Cholesterol, Calculated 14 mg/dl Cholesterol/HDL Ratio 3.0 Problem Qualifiers (1) Bipolar disorder: Active/Remission status: currently active Current bipolar episode type: manic Current episode severity: severe Psychotic features: with psychotic features Qualified Codes: F31.2 - Bipolar disorder, current episode manic severe with psychotic features
[2018-02-05] MEDS ORDERED: RISPERIDONE 0.5 MG TAB PO SCH (09:00)
--- NOTE | 2018-02-05 09:16 | Psych Management Progress Note ---
Psychiatry Miscellaneous Date of Service: Feb 05, 2018. Patient seen, MS assessed. Rates mood as improving. Encouraged cooperation with care and treatment plan as outlined by allied health prescriber.
[2018-02-05] MEDS: LISINOPRIL 10 MG TAB PO SCH (09:19)
[2018-02-05] MEDS: LEVOTHYROXINE 88 MCG TAB PO SCH (09:19)
[2018-02-05] MEDS ORDERED: BENZTROPINE MESYLATE 0.5 MG TAB PO PRN (17:45)
[2018-02-05] MEDS: RISPERIDONE 1 MG TAB PO SCH (22:01)
[2018-02-05] MEDS: LITHIUM CARBONATE 300 MG TAB PO SCH (22:01)
[2018-02-06 06:48] VITALS: BP_SYST 127; BP_SYST 129; BP_DIAS 86; BP_DIAS 91; PULSE 80; PULSE 81; TEMP 36.7
--- NOTE | 2018-02-06 07:48 | Psychiatric Progress Notes ---
Progress Note Date of Service Feb 06, 2018. 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 Chief Complaint "I'm doing well, the days are passing by smoothly. I'm relaxed, but driven and focused at the same time". Subjective Patient was seen & assessed interval progress reviewed with Nursing. Staff report the patient did not sleep well last evening and has been groggy throughout the day. Pt is requesting consolidation of her Risperdal to HS. Pt briefly reported tongue discomfort yesterday, but declined prn Cogentin when offered. Pt was seen today to assess progress since admission. Pt states she is doing well, feeling as though she has been noticing improvement in her mood and cognition. Pt reports feeling fatigued today, and feeling as though "I'm dragging my tongue." Explanation was given to the patient in regard to Cogentin order. She states she will hold off on requesting the medication for now. Discussed patient's desire to consolidate Risperdal to HS as well as [place] level to be drawn tomorrow evening. Pt denies other physical or psychiatric concerns at this time. Review of Systems Psych: denies symptoms other than stated above Constitutional: reports fatigue and feeling as though she is "dragging my tongue " Cardiovascular: denied GI: denied Neurologic: denied Remainder of 10 body systems also reviewed and denied other than noted above. Sleep Information Total Hours of Sleep: 4.75 Meal Information Percent of Breakfast Consumed: 75 Percent of Lunch Consumed: 75 Percent of Dinner Consumed: 50 Mental Status Exam During interview pt is: cooperative Appearance: appropriately dressed, appropriately groomed Eye contact is: good Motor behavior is: steady gait & station, no abnormal motor movements Speech: normal in rate, rhythm & volume (heavy Ghanaian accent) Affect: mood congruent, euthymic Mood is: other ("I'm good") Thought process: goal directed, clear, coherent Thought content: reality based without delusions Suicidal thought are: denied Homicidal thoughts are: denied Cognition: memory grossly intact, attention grossly intact, language grossly intact Intelligence estimated to be: consistent with level of education Insight: fair Judgement: fair Impression Pt appears to be slowing and is goal-directed in conversation. Pt reports feeling tired at times during the day. Discussed consolidation of Risperdal to HS, pt to receive 1.5mg tonight. Reviewed Gaston level scheduled for tomorrow evening. Pt scheduled for a family session with her daughter tomorrow. Plan (1) Bipolar disorder 02/03 -presents with labile, distraught mood, poor sleep, racing thoughts, loose associations, disorganized thoughts and behavior, paranoia, and auditory hallucinations. She has not been able to provide for her basic needs, and daughter feels unable to care for her at home. She took herself off lithium and lamotrigine about a month ago while on vacation in [place], and mood has decompensated since. -[place] 750 mg at bedtime resumed yesterday, will continue and schedule a trough level for 02/07/2018. -Patient reports previous use of risperidone, so have started risperidone 0.5 mg as needed for psychosis/traci and 1 mg at bedtime to assist with symptoms and sleep. Fasting glucose and lipid profile ordered for tomorrow for monitoring on an atypical antipsychotic. -Consider need to resume lamotrigine, would need to start over with 25mg daily due to being off it for around a month. -Current psychiatrist is Dr. Sulaiman Welch in [place]; patient signed an KATHERYN and we will request records.I called him ([phone]) and left a message today requesting a call back to nursing station for collateral and to coordinate care. -Continue medically necessary private room until symptoms and behaviors are under better control. -Every 15 minute checks for safety, encourage attendance and participation in groups once she is able to tolerate them, and involve family as able. Will likely need a family meeting with her adult daughter. -Staff confirmed with adult daughter that her 2 sons are with their fathers. -She will need referral for local outpatient psychiatric care. 02/04 - Increase Risperdal to include 0.5 mg qam - Continue other meds 02/05 - Continue current medication regimen and treatment plan 02/06 - Risperdal moved to 1.5mg at HS - Cogentin available prn for any reported tongue discomfort (2) Noncompliance with medications 02/03 -gather information and continue to explore the patient's reasons for noncompliance which she is less disorganized. Provide psychoeducation regarding the risks of ongoing poor compliance. Consider possible benefits of a long-acting injectable if noncompliance is a chronic issue. (3) HTN (hypertension) 02/03 -resume home dose of lisinopril, and monitor blood pressure. Was hypertensive on admission, but blood pressure came down to 153/88 after her lisinopril this morning. Discharge / Aftercare Planning Primary Care Physician: Name: Unknown Therapist: Name: Graham Whitney Bellows Assembler: Name: 0 Visit Code E&M Code: 34644 Inventory Assets Strengths: Supportive family, has been in treatment in the past Needs: Medications, collateral information about past treatments/course of illness, local outpatient care Risk Factors Assessment : No /single/: Yes Higher / Fall in social status: No Health problems: Yes Mental Health Diagnoses: Yes Substance use disorders: No Previous attempt: No Family history of suicide: No Previous psychiatric stay: Yes Hopelessness: Yes Smoker: No Protective Factors Assessment : No Responsible for young children: Yes Employed: No Supportive family: Yes Absence of risk factors above: No (Unable to care for self, daughter states inability to manage her current symptoms and behaviors at home, has no outpatient providers locally, has been noncompliant with medications.) Data Vital Signs Last 24 Hrs: Date Time Temp Pulse Resp B/P (MAP) Pulse Ox O2 Delivery O2 Flow Rate FiO2 02/06/18 06:48 36.7 80 16 127/86 81 129/91 Meds Administered Last 24 Hrs: Meds Administered (Past 24Hrs) Medications (Trade) Dose Ordered Sig/Sergio Route Start Time Stop Time Status Last Admin Dose Admin Risperidone (Risperdal Tab) 0.5 mg QAM PO 02/05/18 09:00 03/07/18 08:59 02/05/18 09:19 0.5 MG Problem Qualifiers (1) Bipolar disorder: Active/Remission status: currently active Current bipolar episode type: manic Current episode severity: severe Psychotic features: with psychotic features Qualified Codes: F31.2 - Bipolar disorder, current episode manic severe with psychotic features
[2018-02-06] MEDS: LEVOTHYROXINE 88 MCG TAB PO SCH (08:30)
[2018-02-06] MEDS: LISINOPRIL 10 MG TAB PO SCH (08:31)
[2018-02-06] MEDS: CHOLECALCIFEROL 1000 INTER.UNIT TAB PO SCH (11:29)
[2018-02-06] MEDS: LITHIUM CARBONATE 300 MG TAB PO SCH (21:59)
[2018-02-06] MEDS ORDERED: RISPERIDONE 1 MG TAB PO SCH (22:00)
[2018-02-06] MEDS: RISPERIDONE 1 MG TAB PO SCH (22:00)
[2018-02-07 06:52] VITALS: BP_SYST 138; BP_SYST 140; BP_DIAS 91; BP_DIAS 99; PULSE 67; PULSE 75; TEMP 36.4
[2018-02-07] MEDS: LISINOPRIL 10 MG TAB PO SCH (08:40)
[2018-02-07] MEDS: CHOLECALCIFEROL 1000 INTER.UNIT TAB PO SCH (08:40)
[2018-02-07] MEDS: LEVOTHYROXINE 88 MCG TAB PO SCH (08:40)
--- NOTE | 2018-02-07 12:26 | Psychiatric Progress Notes ---
Progress Note Date of Service Feb 07, 2018. 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 Chief Complaint "I'm doing fine". Subjective Patient was seen & assessed interval progress reviewed with Treatment Team. Staff report the patient has a family meeting scheduled with her daughter today at 2:00. Pt appears more organized and rated herself a "10 and relaxed" last evening. Pt was seen today to assess progress since admission. She states she if "doing fine". Pt asked about response to consolidation of risperidone dosing to bedtime. She states she feels "less dopey", which is positive. Pt remain future oriented during conversation, sharing that she is looking forward to meeting her outpatient psychiatrist and taking her daily walks again. Pt denies physical or psychiatric concerns at this time and feels her experience here was "positive and helpful." Review of Systems Psych: denies symptoms other than stated above Constitutional: denied Cardiovascular: denied GI: denied Neurologic: denied Remainder of 10 body systems also reviewed and denied other than noted above. Sleep Information Total Hours of Sleep: 5.00 Meal Information Percent of Breakfast Consumed: 100 Percent of Lunch Consumed: 100 Percent of Dinner Consumed: 50 Mental Status Exam During interview pt is: cooperative Appearance: appropriately dressed, appropriately groomed Eye contact is: good Motor behavior is: steady gait & station, no abnormal motor movements Speech: normal in rate, rhythm & volume (Indian accent) Affect: mood congruent, euthymic Mood is: other ("I'm doing fine") Thought process: goal directed, clear, coherent Thought content: reality based without delusions Suicidal thought are: denied Homicidal thoughts are: denied Cognition: memory grossly intact, attention grossly intact, language grossly intact Intelligence estimated to be: consistent with level of education Insight: fair Judgement: fair Impression Pt remains goal-directed and focused on steps necessary for discharge. Reports positive response to consolidation of risperidone 1.5mg to HS. She will receive lab work to check lithium level tonight. Still in need of aftercare appointments. Will gauge timeline for discharge based on progress today as well as input from patient's daughter at family meeting this afternoon. Plan (1) Bipolar disorder 8/2 -presents with labile, distraught mood, poor sleep, racing thoughts, loose associations, disorganized thoughts and behavior, paranoia, and auditory hallucinations. She has not been able to provide for her basic needs, and daughter feels unable to care for her at home. She took herself off lithium and lamotrigine about a month ago while on vacation in [place], and mood has decompensated since. -[place] 750 mg at bedtime resumed yesterday, will continue and schedule a trough level for 02/07/2018. -Patient reports previous use of risperidone, so have started risperidone 0.5 mg as needed for psychosis/traci and 1 mg at bedtime to assist with symptoms and sleep. Fasting glucose and lipid profile ordered for tomorrow for monitoring on an atypical antipsychotic. -Consider need to resume lamotrigine, would need to start over with 25mg daily due to being off it for around a month. -Current psychiatrist is Dr. Sulaiman Welch in [place]; patient signed an KATHERYN and we will request records.I called him ([phone]) and left a message today requesting a call back to nursing station for collateral and to coordinate care. -Continue medically necessary private room until symptoms and behaviors are under better control. -Every 15 minute checks for safety, encourage attendance and participation in groups once she is able to tolerate them, and involve family as able. Will likely need a family meeting with her adult daughter. -Staff confirmed with adult daughter that her 2 sons are with their fathers. -She will need referral for local outpatient psychiatric care. 02/04 - Increase Risperdal to include 0.5 mg qam - Continue other meds 02/05 - Continue current medication regimen and treatment plan 02/06 - Risperdal moved to 1.5mg at - [facility] available prn for any reported tongue discomfort 02/07 - Continue current medication regimen and treatment plan - Family meeting with daughter this afternoon - Requires aftercare in the area prior to discharge (2) Noncompliance with medications 02/03 -gather information and continue to explore the patient's reasons for noncompliance which she is less disorganized. Provide psychoeducation regarding the risks of ongoing poor compliance. Consider possible benefits of a long-acting injectable if noncompliance is a chronic issue. (3) HTN (hypertension) 02/03 -resume home dose of lisinopril, and monitor blood pressure. Was hypertensive on admission, but blood pressure came down to 153/88 after her lisinopril this morning. Discharge / Aftercare Planning Primary Care Physician: Name: Unknown Therapist: Name: Graham Whitney Campaign Specialist: Name: 0 Visit Code E&M Code: 07996 Inventory Assets Strengths: Supportive family, has been in treatment in the past Needs: Medications, collateral information about past treatments/course of illness, local outpatient care Risk Factors Assessment : No /single/: Yes Higher / Fall in social status: No Health problems: Yes Mental Health Diagnoses: Yes Substance use disorders: No Previous attempt: No Family history of suicide: No Previous psychiatric stay: Yes Hopelessness: Yes Smoker: No Protective Factors Assessment : No Responsible for young children: Yes Employed: No Supportive family: Yes Absence of risk factors above: No (Unable to care for self, daughter states inability to manage her current symptoms and behaviors at home, has no outpatient providers locally, has been noncompliant with medications.) Data Vital Signs Last 24 Hrs: Date Time Temp Pulse Resp B/P (MAP) Pulse Ox O2 Delivery O2 Flow Rate FiO2 02/07/18 06:52 36.4 67 16 138/91 75 140/99 Meds Administered Last 24 Hrs: Meds Administered (Past 24Hrs) Medications (Trade) Dose Ordered Sig/Sergio Route Start Time Stop Time Status Last Admin Dose Admin Risperidone (Risperdal Tab) 1.5 mg HS PO 02/06/18 22:00 03/05/18 21:59 02/06/18 22:00 1.5 MG Cholecalciferol (Vitamin D Tab) 2,000 inter.unit QAM PO 02/06/18 09:00 03/08/18 08:59 02/07/18 08:40 2,000 INTER.UNIT Problem Qualifiers (1) Bipolar disorder: Active/Remission status: currently active Current bipolar episode type: manic Current episode severity: severe Psychotic features: with psychotic features Qualified Codes: F31.2 - Bipolar disorder, current episode manic severe with psychotic features
[2018-02-07] MEDS: RISPERIDONE 1 MG TAB PO SCH (20:14)
[2018-02-07] MEDS: LITHIUM CARBONATE 300 MG TAB PO SCH (20:14)
[2018-02-08 06:42] VITALS: BP_SYST 132; BP_SYST 136; BP_DIAS 90; BP_DIAS 94; PULSE 73; PULSE 85; TEMP 36.6
[2018-02-08] MEDS ORDERED: RSP1 PO ×2 (08:58)
[2018-02-08] MEDS: LEVOTHYROXINE 88 MCG TAB PO SCH (09:02)
[2018-02-08] MEDS: CHOLECALCIFEROL 1000 INTER.UNIT TAB PO SCH (09:02)
[2018-02-08] MEDS: LISINOPRIL 10 MG TAB PO SCH (09:02)
--- NOTE | 2018-02-08 09:15 | Discharge Instructions ---
Discharge Information Report Includes Report will include the: Discharge Instructions & Summary Admission Admission Date / Time: Feb 03, 2018 at 01:56 Reason for Admission: Bipolar Disorder Discharge Discharge Diagnosis / Problem: Bipolar disorder, manic Condition at Discharge: Good Discharge Goals Goal(s): Decrease discomfort, Improve disease control, Prevent Disease Progression Activity Recommendations Activity Limitations: resume your previous activity . Instructions / Follow-Up Instructions / Follow-Up . SPECIAL CARE INSTRUCTIONS: 1. Follow through with your scheduled aftercare appointments. If unable to keep an appointment, please call to reschedule. 2. Take your medication only as prescribed. Medication should not be changed or stopped without the approval of your doctor. In the event of worsening symptoms or concerns about side effects, contact your doctor immediately. 3. Utilize new healthy coping skills, anger management skills, and stress management skills learned during your hospitalization. Journal feelings and process them with a support person. Identify stressors or situations that may result in relapse, deterioration or inappropriate behaviors and develop a plan to deal with those issues. 4. If your coping skills are ineffective and you are in crisis, contact your outpatient providers for direction. If unable to reach your providers, please call the [facility] HELP LINE AT or go to the closest Emergency Room. 5. Avoid alcohol and un-prescribed drugs. 6. You have been provided with the Mental Health Advance Directives Pamphlet for your review. AFTERCARE APPOINTMENTS: * Please call your insurance company prior to your scheduled appointment to confirm your aftercare providers are covered. Take your insurance information to your appointments. . Discharge / Aftercare Planning Primary Care Physician: Name: Dr. Bolton Psychiatrist: Name: [facility] [place] [address] [place] Therapist: Name Of Therapist: [facility] [place]: Name: . . Follow-Up Care Plan for Follow-Up Care: The patient will have follow up at [facility] Current Hospital Diet Patient's current hospital diet: Regular Diet Discharge Diet Recommended Diet: Regular Diet Procedures Procedures Performed: No Lipid Panel Test 02/04/18 08:13 Range/Units Triglycerides Level 72 0-150 mg/dl Cholesterol Level 154 0-200 mg/dl HDL Cholesterol 51 mg/dl Cholesterol/HDL Ratio 3.0 LDL Cholesterol, Calculated 89 mg/dl Pending Studies Pending Studies at Discharge: No Medical Emergencies . Who to Call and When: Medical Emergencies: For questions or emergencies related to your hospital stay, please contact the Inpatient Behavioral Health Unit at [phone]. A powerhouse attendant is on-call 25/01 for the Behavioral Health Unit for emergencies At any time you feel your situation is an emergency, you may also call 911 immediately. . Non-Emergent Contact Non-Emergency issues call your: Psychiatrist, Therapist Past History Medical & Surgical History: (1) HTN (hypertension) Advance Directives Existing Advance Directive: No Do You Have an Existing Mental: No Existing Living Will: No Existing Power of Environmental Consultant: No Advance Directives Info Given: To Pt/S.O. Advance Directives Reason: Declines as Mental Health Visit. Discharge Summary Admission HPI Per the Admitting provider: According to ER records, the patient initially presented yesterday evening requesting medication refills for lamotrigine 200 mg daily and lithium 750 mg daily, reporting a history of bipolar disorder and stating she had been noncompliant with medications for an unclear amount of time; later stated she stopped her medications while she was in [place] visiting relatives, and returned to [place] January 16. Her daughter accompanied her and reported that the patient has had several manic episodes since stopping her medications, and wanted a "doctor to tell her to take her medication." The patient said she had stopped the medications on her own due to weight gain, but was not "feeling like herself," and wanted to resume medication and follow-up with a local psychiatrist. She reported previously being seen by a psychiatrist, Dr. Ventura, in [place], but had not set up services since moving to [place]. Her exam was normal, and she was discharged with advice to follow up with her psychiatrist before restarting medications due to concerns about appropriate doses, and to arrange follow-up with a local psychiatrist. She represented to the emergency room within hours, reporting a severe headache and anxiety, stating she had gone home and taken 750 mg of lithium. It was unclear if she was taking her home antihypertensives, and blood pressure was 173/93. She received IV fluids, Compazine, and diphenhydramine, and headache improved. Her daughter endorse concerns about taking her home, stating she had not slept in several days, and patient was hyperverbal, appeared to be responding to internal stimuli, behaving bizarrely and laughing inappropriately during the exam. At time she was incoherent, switching between Mosotho and [place], and could not answer basic questions appropriately. She agreed to voluntary admission, and after arriving on the unit, was labile, hyperverbal, endorsed racing thoughts, auditory hallucinations of voices, poor sleep, irritability, restlessness, and inability to function. She appeared distressed and was wailing at times. She slept poorly, and received hydroxyzine and risperidone 0.5 mg as needed. She was placed in a medically necessary private room due to her behavior, as she has been loud, pacing, hyperverbal, and extremely distraught. On my assessment, she was initially in her room, confused and having difficulty dressing herself, and took an extended period of time to get to the interview room. She states she does not need an motor vehicle parts interpreter, as she speaks and understands Afghan well. Reports a history of bipolar type I diagnosed around age 46, stating "I was in the shower for an extended period of time, didn't want to get out, I was numb, was crying and crying..." She progresses to talk about pictures of Mickey, the number 39, while rocking back and forth. She is often unable to answer questions directly, or answers with unrelated information. She describes mood as "a mess," for about the past 3 weeks since she returned from [place]. Says mood was good in [place], and she went off her medication while there, "I think it was when I went to this concert with my son. 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 at [employer], reciting his email address, and then talking about a cook. She endorses racing thoughts, confusion, feeling overwhelmed, poor sleep , feeling distraught, and AH. Describes AH of "my grandpa, in my dreams, the best feeling, my hands like this." She is unsure if this occurs when she is asleep or awake. She reports feeling anxious, cannot clarify further. Denies thoughts of harming herself or others. She cannot state how we can help her here , saying "can I lay down?" then saying "no, no we need to do it now, time is wasting!" She wants me to contact Dr. Putnam (sp?) but cannot tell me who that is or where he practices. Hospital Course (1) Bipolar disorder 02/03 -presents with labile, distraught mood, poor sleep, racing thoughts, loose associations, disorganized thoughts and behavior, paranoia, and auditory hallucinations. She has not been able to provide for her basic needs, and daughter feels unable to care for her at home. She took herself off lithium and lamotrigine about a month ago while on vacation in [place], and mood has decompensated since. -[place] 750 mg at bedtime resumed yesterday, will continue and schedule a trough level for 02/07/2018. -Patient reports previous use of risperidone, so have started risperidone 0.5 mg as needed for psychosis/traci and 1 mg at bedtime to assist with symptoms and sleep. Fasting glucose and lipid profile ordered for tomorrow for monitoring on an atypical antipsychotic. -Consider need to resume lamotrigine, would need to start over with 25mg daily due to being off it for around a month. -Current psychiatrist is Dr. Sulaiman Welch in [place]; patient signed an KATHERYN and we will request records.I called him ([phone]) and left a message today requesting a call back to nursing station for collateral and to coordinate care. -Continue medically necessary private room until symptoms and behaviors are under better control. -Every 15 minute checks for safety, encourage attendance and participation in groups once she is able to tolerate them, and involve family as able. Will likely need a family meeting with her adult daughter. -Staff confirmed with adult daughter that her 2 sons are with their fathers. -She will need referral for local outpatient psychiatric care. 02/04 - Increase Risperdal to include 0.5 mg qam - Continue other meds 02/05 - Continue current medication regimen and treatment plan 02/06 - Risperdal moved to 1.5mg at HS - Cogentin available prn for any reported tongue discomfort 02/07 - Continue current medication regimen and treatment plan - Family meeting with daughter this afternoon - Requires aftercare in the area prior to discharge (2) Noncompliance with medications 02/03 -gather information and continue to explore the patient's reasons for noncompliance which she is less disorganized. Provide psychoeducation regarding the risks of ongoing poor compliance. Consider possible benefits of a long-acting injectable if noncompliance is a chronic issue. (3) HTN (hypertension) 02/03 -resume home dose of lisinopril, and monitor blood pressure. Was hypertensive on admission, but blood pressure came down to 153/88 after her lisinopril this morning. Risk Factors Assessment : No /single/: Yes Higher / Fall in social status: No Health problems: Yes Mental Health Diagnoses: Yes Substance use disorders: No Previous attempt: No Family history of suicide: No Previous psychiatric stay: Yes Hopelessness: Yes Smoker: No Protective Factors Assessment : No Responsible for young children: Yes Employed: No Supportive family: Yes Absence of risk factors above: No (Unable to care for self, daughter states inability to manage her current symptoms and behaviors at home, has no outpatient providers locally, has been noncompliant with medications.) Day of Discharge Assessment COURSE OF HOSPITALIZATION: The patient has been on her unit for 5 days. She was admitted voluntarily in a manic episode after having weaned herself off of her mood stabilizing agents during the summer. For additional admission information I refer you to the attached history and physical. During her stay she was restabilize on lithium 750 mg daily with a level of 0.6 on February 08. Initially during her stay she was agitated impulsive and at times yelling and preferred to isolate in her room rather than participating in groups. As her traci resolved also with the assistance of Risperdal 1.5 mg at bedtime, the patient was able to be more part of the milieu, participate in group programming and be with her peers. She felt that her manic symptoms abated during her stay. She was able to carry on a cut clear and coherent conversation without pressured speech. Her behavior was within normal limits by day of discharge. During her stay her risk factors were mediated through the use of group and individual counseling, safety planning, communications with her eldest daughter, arranging aftercare and counseling about the need to remain on medications. She agreed that it was a bad idea to have tapered herself off and recognizes that she will need to be on medications the rest of her life. DAY OF DISCHARGE ASSESSMENT: Today the patient is requesting discharge. She feels well, without any concerns about going home. She voices her appreciation for the programming in the respect she was given during her stay. She denies suicidal or homicidal ideation. She denies auditory or visual hallucinations. Today she is casually and appropriately dressed and groomed. Gait and station are within normal limits. Eye contact is good. Affect is smiling. Speech is of normal rate volume and tone, with an Mos[place]o accent. Thoughts are organized , goal-directed, and without evidence of thought disorder. Recent and remote memory are intact per conversation. Intelligence is estimated to be average. Insight and judgment are improved over admission. Laboratory Test 02/02/18 20:31 02/02/18 21:44 02/04/18 08:13 02/07/18 20:18 Urine Color YELLOW Urine Appearance CLEAR Urine pH 5.5 Urine Specific [place] 1.011 Urine Protein NEG Urine Glucose (UA) NEG Urine Ketones 1+ Urine Occult Blood NEG Urine Nitrite NEG Urine Bilirubin NEG Urine Urobilinogen NEG Urine Leukocyte Esterase NEG Urine Opiates Screen NEG Urine Methadone, Qualitative NEG Urine Barbiturates NEG Urine Phencyclidine (PCP) Level NEG Ur Amphetamine/Methamphetamine NEG MDMA (Ecstasy) Screen NEG Urine Benzodiazepines Screen NEG Urine Cocaine Metabolite NEG Urine Marijuana (THC) NEG White Blood Count 8.90 Red Blood Count 4.80 Hemoglobin 13.7 Hematocrit 39.9 Mean Corpuscular Volume 83.1 Mean Corpuscular Hemoglobin 28.5 Mean Corpuscular Hemoglobin Concent 34.3 Platelet Count 259 Mean Platelet Volume 9.2 Neutrophils (%) (Auto) 56.9 Lymphocytes (%) (Auto) 34.8 Monocytes (%) (Auto) 5.1 Eosinophils (%) (Auto) 2.4 Basophils (%) (Auto) 0.6 Neutrophils # (Auto) 5.07 Lymphocytes # (Auto) 3.10 Monocytes # (Auto) 0.45 Eosinophils # (Auto) 0.21 Basophils # (Auto) 0.05 RDW Standard Deviation 38.7 RDW Coefficient of Variation 12.8 Immature Granulocyte % (Auto) 0.2 Immature Granulocyte # (Auto) 0.02 Sodium Level 138 Potassium Level 3.4 Chloride Level 105 Carbon Dioxide Level 25 Anion Gap 8.0 Blood Urea Nitrogen 12 Creatinine 0.64 Est Creatinine Clear Calc Drug Dose 103.6 Estimated GFR () 119.7 Estimated GFR (Non- 103.3 BUN/Creatinine Ratio 18.6 Random Glucose 89 Calcium Level 9.9 Total Bilirubin 0.5 Direct Bilirubin 0.1 Aspartate Amino Transferase (AST) 53 Alanine Aminotransferase (ALT) 52 Alkaline Phosphatase 80 Total Protein 7.5 Albumin 4.3 Thyroid Stimulating Hormone (TSH) 1.590 [place] Level 0.6 0.6 Ethyl Alcohol mg/dL < 3.0 Fasting Glucose 90 Triglycerides Level 72 Cholesterol Level 154 HDL Cholesterol 51 LDL Cholesterol, Calculated 89 VLDL Cholesterol, Calculated 14 Cholesterol/HDL Ratio 3.0 Total Time Total Time Spent (min): Greater than 30 minutes Total Time Included: examination of the patient, discharge planning, medication reconciliation, communication with other providers Transition of Care Transition of care record: was reviewed with the patient Tobacco Cessation at Discharge Smoking Status: Never Smoker FDA approved Prescription: non-smoker Problem Qualifiers (1) Bipolar disorder: Active/Remission status: currently active Current bipolar episode type: manic Current episode severity: severe Psychotic features: with psychotic features Qualified Codes: F31.2 - Bipolar disorder, current episode manic severe with psychotic features
== END 2018-02-08 10:14 | disposition home or self-care (01) | DRG 885 ==
LOC: EDBD 20:27 → C.EDB 20:28 → C.MHU 02-03 01:56 → MERGE 02-03 01:56 → C.MHU 02-05 18:27
PROVIDERS: ADMIT Psychiatry & Neurology Psychiatry; ATTEND Psychiatry & Neurology Psychiatry
DX: F31.2 Bipolar disorder, current episode manic severe with psychotic features (principal); F41.9 Anxiety disorder, unspecified; Z82.49 Family history of ischemic heart disease and other diseases of the circulatory system; Z91.14 Patient's other noncompliance with medication regimen; I10 Essential (primary) hypertension

== ENCOUNTER 2021-07-01 16:26 | Inpatient (IN) ==
--- NOTE | 2021-07-01 18:30 | Emergency Department Note ---
Impression & Plan Bipolar disorder ADMIT ED Provider Note HPI: Patient arrived to the ED via [employer] The patient is a 56-year-old female with history of bipolar disorder, presents to the emergency department with manic behavior. Patient son at the bedside is serving as the primary historian, it is difficult to get much useful information from the patient herself. She continues to tell me that she is very "angry". She does not expand on this much. She is not very coherent when she begins to speak. According the patient's son the patient has been experiencing some ex acerbating/manic symptoms likely related to her underlying bipolar disorder. They discussed the symptoms with her psychiatrist in [place] today and he recommended that the patient be evaluated in the emergency room for inpatient psychiatric care. Patient denies any suicidal or homicidal ideations. She is agitated but she is generally cooperative with answering questions, she is not physically aggressive. She does get agitated when the son begins to give history and therefore history is somewhat limited at this time. We were able to remove the patient's son from the room, I did have a discussion with him in the hallway regarding the patient's symptoms. He tells me over about the past 2 weeks the patient has had manic symptoms, she has not been sleeping very well, she has been staying up late and she has been very active, cleaning unnecessarily, doing other concerning things and having delusions that family members are who are actually still alive, she is often not making a ny sense when she speaks. He states that she has had similar symptoms in the past associated with manic phase of her bipolar disorder. She has previously required inpatient psychiatric care. Patient son states that he does not feel safe with her at home and he does not feel that he can take care of her in this state. ROS: -Psychiatric: Bipolar disorder, manic features *10 point review systems was conducted and is otherwise negative unless stated above *Outpatient medications and allergy history reviewed PE: General: Alert, NAD HEENT: Normocephalic, atraumatic, trachea midline Eyes: Extraocular eye movement is intact, no scleral erythema Pulmonary: Clear to auscultation bilaterally, no wheezing Cardio: Regular rate and rhythm GI: Abdomen is soft, nontender : No suprapubic tenderness MSK: No evidence of trauma or malformation of the extremities, no edema Skin: No evidence of rash Neuro: Alert, no focal deficits Psychiatric: Cooperative, tangential thought process, difficult historian Medical Decision Making: Patient presented with manic behavior for some time now, presents with son at the bedside who serves as the primary historian. Patient apparently has been e xhibiting some manic behavior at home, she is not sleeping, she is very restless, she is exhibiting some psychotic features. On arrival here to the ED she is mildly agitated, she is anxious appearing. She does not display a coherent thought process. Patient was medically cleared for case management assessment, at this time the patient is in agreement for admission for inpatient psychiatric care which I do think is appropriate. Patient is not able to care for herself at home, family is concerned that they are unable to care for her at home in her current state. On my reassessment the patient is agreeable to sign in voluntarily. Her family at the bedside is in agreement and stated their preference for this plan. Patient is pending placement. Diagnosis: 1. Bipolar disorder, manic phase 2. Disorganized thought process 3. Inability to care for self secondary to psychiatric condition Disposition: Inpatient psychiatric placement/admission Melchor Horta DO Emergency Medicine Past Med/Surg History Medical History Amenorrhea Bipolar 1 disorder, mixed, full remission Hypertension Hypothyroidism Knee effusion, right Low back pain Multiple thyroid nodules Obesity (BMI 30-39.9) Pain of both hip joints Restless legs syndrome Right knee DJD Sclerosis of sacroiliac joint Surgical History History of appendectomy Family History Mother Hypertension Malignant neoplasm of stomach Father Colon cancer Aunt Breast cancer, Onset Age: 40 Ovarian cancer, Onset Age: 30 Social History Smoking Status: Never smoker Second Hand Exposure: No; Hx Alcohol Use: Yes Hx Substance Use: No Preferred Language: Latvian Communication Ability: Effective Visual Impairment: Limited Hearing Ability: Normal Assistant Operator Required: No Current Living Situation: Family current occupational status: employed Feels Safe at Home: Yes Dental Care, Regularly: Yes Physical Activity Frequency: 3-4 Times per Week Allergies Allergies Allergy/AdvReac Type Severity Reaction Status Date / Time No Known Allergies Allergy Verified 07/01/21 19:16 Home Meds Home Medications Medication Instructions Recorded Confirmed lithium carbonate 150 mg capsule 150 mg PO HS 07/01/21 07/01/21 lorazepam 0.5 mg tablet (Ativan) 0.5 mg PO QID PRN 07/01/21 07/01/21 quetiapine 50 mg tablet 50 - 100 mg PO HS 07/01/21 07/01/21 temazepam 15 mg capsule 15 - 30 mg PO HS 07/01/21 07/01/21 Previous Rx's Medication Instructions Recorded lamotrigine 100 mg tablet 200 mg PO DAILY #1 tab 11/07/20 lithium carbonate 300 mg capsule 600 mg PO HS #1 cap 11/07/20 cholecalciferol (vitamin D3) 50 2,000 unit PO QAM #90 cap 11/22/20 mcg (2,000 unit) capsule (Vitamin D3) levothyroxine 88 mcg tablet 88 mcg PO DAILY #90 tab 11/22/20 (Synthroid) lisinopril 20 1 tab PO DAILY #90 tab 11/22/20 mg-hydrochlorothiazide 12.5 mg tablet Results & Data (ED) Vital Signs Vital Signs - 24 hr 07/01/21 17:50 Temperature 36.5 C Temperature Source Temporal Artery Scan Pulse Rate 73 Respiratory Rate 20 Respiratory Effort / Characteristics Non-Labored Spontaneous Respiratory Depth Normal Respiratory Pattern Regular Blood Pressure 169/83 H Blood Pressure Mean 111 Blood Pressure Position Sitting Pulse Oximetry 97 Oxygen Delivery Method Room Air Sepsis Recent Fever Within 48 Hours No Sepsis New/Unexplained Change in Mental Status No Sepsis Action Taken by Nursing No Action Required Laboratory Data Result diagrams: 07/01/21 18:59 07/01/21 18:59 Lab Results 07/01/21 07/01/21 07/01/21 Range/Units 18:59 18:59 18:59 WBC 9.49 (4.8-10.8) K/uL RBC 4.30 (4.2-5.4) M/uL Hgb 12.4 (12.0-16.0) g/dL Hct 37.1 (37-47) % MCV 86.3 (80-100) fL MCH 28.8 (25-34) pg MCHC 33.4 (32-36) g/dL RDW Std Deviation 40.9 (36.4-46.3) fL RDW Coeff of Page 13.0 (11.5-14.5) % Plt Count 309 (130-400) K/uL MPV 8.9 (7.4-10.4) fL Immature Gran % (Auto) 0.1 % Neut % (Auto) 64.2 % Lymph % (Auto) 27.0 % [place] % (Auto) 5.8 % Eos % (Auto) 2.4 % Baso % (Auto) 0.5 % Neut # (Auto) 6.09 (1.4-6.5) K/uL Lymph # (Auto) 2.56 (1.2-3.4) K/uL [place] # (Auto) 0.55 (0.11-0.59) K/uL Eos # (Auto) 0.23 (0-0.5) K/uL Baso # (Auto) 0.05 (0-0.2) K/uL Immature Gran # (Auto) 0.01 (0.00-0.02) K/uL Sodium 137 (136-145) mmol/L Potassium 3.9 (3.5-5.1) mmol/L Chloride 108 H (98-107) mmol/L Carbon Dioxide 25 (21-32) mmol/L Anion Gap 4.0 (3-11) BUN 19 H (7-18) mg/dl Creatinine 0.87 (0.6-1.2) mg/dl Est Cr Clr Drug Dosing 70.5 ml/min Est GFR ( Amer) 86.9 ml/min Est GFR (Non-Af Amer) 75.0 ml/min BUN/Creatinine Ratio 21.5 H (10-20) Glucose 122 H (70-99) mg/dl Calcium 10.1 (8.5-10.1) mg/dl Total Bilirubin 0.2 (0.2-1) mg/dl AST 22 (15-37) U/L ALT 32 (12-78) Alkaline Phosphatase 94 (45-117) U/L Total Protein 7.3 (6.4-8.2) gm/dl Albumin 3.9 (3.4-5.0) gm/dl Globulin 3.4 (2.5-4.0) gm/dl Albumin/Globulin Ratio 1.1 (0.9-2) TSH 0.095 L (0.300-4.500) uIu/ml Free T4 1.68 H (0.8-1.6) ng/dl Salicylates < 1.7 L (2.8-20) mg/dl Acetaminophen < 2 L (10-30) ug/ml Innovation 0.8 (0.6-1.2) mmol/L Ethyl Alcohol mg/dL (0-3) mg/dl 07/01/21 Range/Units 18:59 WBC (4.8-10.8) K/uL RBC (4.2-5.4) M/uL Hgb (12.0-16.0) g/dL Hct (37-47) % MCV (80-100) fL MCH (25-34) pg MCHC (32-36) g/dL RDW Std Deviation (36.4-46.3) fL RDW Coeff of Page (11.5-14.5) % Plt Count (130-400) K/uL MPV (7.4-10.4) fL Immature Gran % (Auto) % Neut % (Auto) % Lymph % (Auto) % [place] % (Auto) % Eos % (Auto) % Baso % (Auto) % Neut # (Auto) (1.4-6.5) K/uL Lymph # (Auto) (1.2-3.4) K/uL [place] # (Auto) (0.11-0.59) K/uL Eos # (Auto) (0-0.5) K/uL Baso # (Auto) (0-0.2) K/uL Immature Gran # (Auto) (0.00-0.02) K/uL Sodium (136-145) mmol/L Potassium (3.5-5.1) mmol/L Chloride (98-107) mmol/L Carbon Dioxide (21-32) mmol/L Anion Gap (3-11) BUN (7-18) mg/dl Creatinine (0.6-1.2) mg/dl Est Cr Clr Drug Dosing ml/min Est GFR ( Amer) ml/min Est GFR (Non-Af Amer) ml/min BUN/Creatinine Ratio (10-20) Glucose (70-99) mg/dl Calcium (8.5-10.1) mg/dl Total Bilirubin (0.2-1) mg/dl AST (15-37) U/L ALT (12-78) Alkaline Phosphatase (45-117) U/L Total Protein (6.4-8.2) gm/dl Albumin (3.4-5.0) gm/dl Globulin (2.5-4.0) gm/dl Albumin/Globulin Ratio (0.9-2) TSH (0.300-4.500) uIu/ml Free T4 (0.8-1.6) ng/dl Salicylates (2.8-20) mg/dl Acetaminophen (10-30) ug/ml Innovation (0.6-1.2) mmol/L Ethyl Alcohol mg/dL < 3.0 (0-3) mg/dl Discharge Plan Visit Data Chief Complaint: Mental Health Evaluation Stated Complaint: MENTAL [employer], OVEREXCITED ED Provider: Melchor Horta Discharge Problem: Bipolar disorder Forms Stand Alone Forms: [facility], Suicide Prevention Resources Prescriptions Prescriptions: No Action cholecalciferol (vitamin D3) [Vitamin D3] 50 mcg (2,000 unit) capsule 2,000 unit PO QAM Qty: 90 RF: 3 levothyroxine [Synthroid] 88 mcg tablet 88 mcg PO DAILY Qty: 90 RF: 3 lisinopril-hydrochlorothiazide 20-12.5 mg tablet 1 tab PO DAILY Qty: 90 RF: 3 lamotrigine 100 mg tablet 200 mg PO DAILY Qty: 1 RF: 0 lithium carbonate 300 mg capsule 600 mg PO HS Qty: 1 RF: 0 lorazepam [Ativan] 0.5 mg Tablet 0.5 mg PO QID PRN (Reason: Anxiety) RF: 0 temazepam 15 mg capsule 15 - 30 mg PO HS RF: 0 quetiapine 50 mg tablet 50 - 100 mg PO HS RF: 0 lithium carbonate 150 mg capsule 150 mg PO HS RF: 0 Referrals Referrals: Jhonathan Castillo DO [Primary Care Provider] - Discharge Problem: Bipolar disorder Qualifiers: Active/Remission status: currently active Current bipolar episode type: manic Current episode severity: severe Psychotic features: with psychotic features Qualified Code(s): F31.2 - Bipolar disorder, current episode manic severe with psychotic features
[2021-07-01 19:18] LABS: Basophils # (auto) 0.05 K/uL (0-0.2); Basophils % (auto) 0.5 %; Eosinophils # (auto) 0.23 K/uL (0-0.5); Eosinophils % (auto) 2.4 %; Hematocrit (blood only) 37.1 % (37-47); Hemoglobin 12.4 g/dL (12.0-16.0); Immature Granulocytes # (auto) 0.01 K/uL (0.00-0.02); Immature Granulocytes % (auto) 0.1 %; Lymphocytes # (auto) 2.56 K/uL (1.2-3.4); Mean Corpuscular Hemoglobin 28.8 pg (25-34); Mean Corpuscular Hgb Conc 33.4 g/dL (32-36); Mean Corpuscular Volume 86.3 fL (80-100); Mean Platelet Volume 8.9 fL (7.4-10.4); Monocytes # (auto) 0.55 K/uL (0.11-0.59); Monocytes % (auto) 5.8 %; Neutrophils # (auto) 6.09 K/uL (1.4-6.5); Neutrophils % (auto) 64.2 %; Platelet Count 309 K/uL (130-400); RDW Standard Deviation 40.9 fL (36.4-46.3); White Blood Count 9.49 K/uL (4.8-10.8)
[2021-07-01 19:36] LABS: Albumin Level 3.9 gm/dl (3.4-5.0); BUN Creatinine Ratio 21.5 (10-20); Calcium 10.1 mg/dl (8.5-10.1); Creatinine Clr Calc Pharmacy 70.5 ml/min; Est GFR (African American) 86.9 ml/min; Potassium 3.9 mmol/L (3.5-5.1)
[2021-07-01 19:41] LABS: Acetaminophen < 2 ug/ml (10-30); Lithium 0.8 mmol/L (0.6-1.2); Salicylate < 1.7 mg/dl (2.8-20)
[2021-07-01 19:47] LABS: Albumin Globulin Ratio 1.1 (0.9-2); Bilirubin,Total 0.2 mg/dl (0.2-1); Globulin 3.4 gm/dl (2.5-4.0); Thyroid Stimulating Hormone 0.095 uIu/ml (0.300-4.500); Total Protein 7.3 gm/dl (6.4-8.2)
[2021-07-01 19:59] LABS: T4 Free Thyroxine 1.68 ng/dl (0.8-1.6)
[2021-07-01 22:14] LABS: Appearance Urine Clear (Clear); Color Urine Yellow; Glucose Urine UA Negative (Negative); Ketones Urine Negative (Negative); Protein Urine Negative (Negative); Specific Gravity Urine 1.025 (1.000-1.030); pH Urine 6.5 (4.5-7.5)
[2021-07-01 22:15] LABS: Bilirubin Urine Negative (Negative); Blood Urine Trace-intact (Negative); Leukocyte Esterase Urine 2+ (Negative); Nitrite Urine Negative (Negative); Urobilinogen Urine Negative (Negative)
[2021-07-01 22:16] LABS: Epithelial Cell Urine >30 /lpf (0-5)
[2021-07-01 22:17] LABS: Bacteria Urine Negative (Negative); WBC Urine >30 /hpf (0-5)
[2021-07-01 22:23] LABS: Amphetamines+Metham, Urine Neg (Neg); Barbiturates, Urine Neg (Neg); Benzodiazepine, Urine Neg (Neg); Cocaine, Urine Neg (Neg); MDMA (Ecstacy), Urine Neg (Neg); Methadone, Urine Neg (Neg); Opiate, Urine Neg (Neg); Phencyclidine, Urine Neg (Neg)
[2021-07-01 23:40] VITALS: O2SAT 98
--- NOTE | 2021-07-02 01:32 | Emergency Department Note ---
ED Visit Note ED Physician Sign Out Note: 56-year-old female with a history of bipolar disorder arrives for evaluation of acute traci. She is here on [address] Horta who medically cleared her. She is awaiting placement when she was signed out to me. Patient was accepted to [facility] for further psychiatric evaluation and treatment. Sulaiman Albarado MD : Bipolar disorder Qualifiers: Active/Remission status: currently active Current bipolar episode type: manic Current episode severity: severe Psychotic features: with psychotic features Qualified Code(s): F31.2 - Bipolar disorder, current episode manic severe with psychotic features
[2021-07-02] MEDS ORDERED: ACETAMINOPHEN 325 MG TAB PO PRN (01:55)
[2021-07-02] MEDS ORDERED: BISMUTH SUBSALICYLATE LIQD 236 ML PO PRN (01:55)
[2021-07-02] MEDS ORDERED: MAGNESIUM HYDROXIDE SUSP 30 ML UDC PO PRN (01:55)
[2021-07-02] MEDS ORDERED: ALUMINUM/MAGNESIUM SUSP 30 ML UDC PO PRN (01:55)
[2021-07-02] MEDS ORDERED: SODIUM CHLORIDE 0.65% NA SOLN 45 ML (OCEAN) PRN (01:55)
[2021-07-02] MEDS ORDERED: OLANZapine 5 MG TABLET PO ONE (01:59)
[2021-07-02] MEDS: hydrOXYzine HCl 25 MG TAB PO PRN (04:17)
[2021-07-02] MEDS ORDERED: LEVOTHYROXINE SODIUM 88 MCG TABLET PO SCH ×2 (06:30→09:00)
[2021-07-02] MEDS ORDERED: LISINOPRIL/HCTZ 20/12.5MG 1 TAB TAB PO SCH (09:00)
[2021-07-02] MEDS: OLANZapine 5 MG TABLET PO SCH (09:53)
--- NOTE | 2021-07-02 11:40 | History & Physical ---
Date of Service July 02, 2021 Impression / Recommendations Impression The patient is a 56 year old with a history of BPAD who was admitted for disorganized behaviors, decreased sleep and delusions consistent with acute traci. She had been reducing her prior to admission [place] dose, time frame of reduction is unclear, and has not been taking her seroquel liking contributing to emergence of current manic episode. Li level 0.8 in ED but not true trough. TSH low, she is on synthroid and free T4 just slightly high so unlikely to be contributing to traci.The patient is deemed unstable and requires psychiatric hospitalization for diagnostic clarification, safety and stabilization, medication management and development of further coping skills. Discussed treatment options and she is agreeable to taking olanzapine to help with sleep and mood stabilization for acute traci and will continue prior to admission lithium and lamictal. She consents to this. Reviewed risks, benefits and alternatives. Reviewed risks including but not limited to TD, metabolic risks, EPS with olanzapine. AIMS score 0 and will get fasting labs. Also reviewed side effects for lithium and Lamictal including but not limited to rash, tremors, and renal effects, thyroid effects. (1) Bipolar disorder: Active/Remission status: currently active Current bipolar episode type: manic Current episode severity: severe Psychotic features: with psychotic features Qualified Code(s): F31.2 - Bipolar disorder, current episode manic severe with psychotic features (2) Bipolar disorder with severe traci: 07/02/21: The patient was admitted to the [facility] ([facility]) on q15 min checks (behavioral with suicide precautions) for safety. The patient will participate in group, recreational, and milieu therapies and will be offered additional individual and family sessions as clinically appropriate. -Olanzapine 5mg qAM & 10mg qHS -Continue lithium 750mg qhs (will get repeat level in 5 days on 07/07/21 -Continue lamictal 200mg qd -Continue synthroid -Fasting glucose and lipid panel in AM Inventory Assets Strengths: outpt provider, family support Needs: medication adjustment, safety and stabilization Risk Factors Assessment Acute risk of harm to self is low given denial of SI though it is slightly increased by her level of disorganization with acute traci and delusions. 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 Chief Complaint "I'm having some trouble keeping my thoughts straight". History of Present Illness China describes a long history of bipolar disorder with a history of prior hospitalizations for traci. She presented to the ED with her son who completed the 302 petition after her outpatient psychiatrist recommended hospitalization. Her son noted in the petition and during discussions with ED providers that over the past two weeks she has been showing symptoms of traci including being able to answer basic questions, mood lability, lack of sleep, increased goal driven activities such as reorganizing items in the home, disorganized/bizarre behaviors such as keeping a hammer, furniture mover helper and scissors in her bedside table and having delusions about family members being who are still alive. In the ED she was noted to have behavioral disinhibition including somehow climbing into another patient's bed in an adjoining room and then demonstrating hypersexual and disinhibited behaviors this morning on the [facility] including attempting to change her clothes in the common area and being intrusive with peers. She agrees that she is currently experiencing symptoms of traci though notes this time is more unusual because she only lowered her dose of [place] a few days ago and normally she has traci after stopping her [place] or tapering it slowly. She can verify some of her history including past psychiatric treatment and social history but struggles to recall the events leading up to this current hospitalization. She states she trusts her long-time outpatient psychiatrist and that he recently added seroquel to help with sleep and to prevent her from developing traci. She also notes regret at having her children experience her when she is experiencing acute traci and that she wanted to reduce her lithium dose due to "being vain" but she couldn't describe what specific side effects it may have been causing to contribute to her vanity or appearance. Past Psychiatric History Current Psychiatric Diagnosis: bipolar affective disorder Outpatient Services: psychiatrist Dr. Welch Previous Psych Admissions: multiple she estimates ~7, [facility] in 02/[address] [facility] 05/2020 Do You Have Access To A Gun?: No History of Previous Suicide Attempt: No Past Medication Trials: unable to assess fully, hx ativan (07/2020) and temazepam (08/2020) Additional Notes: currently prescribed lithium 750 mg qhs (she has been taking 600mg qd/unclear for how long), seroquel (she hasn't been taking), and lamictal. Past Head Trauma/Neuro History History of Concussion/Seizure: No Allergies Allergy/AdvReac Type Severity Reaction Status Date / Time No Known Allergies Allergy Verified 07/01/21 19:16 Home Medications Medication Instructions Recorded Confirmed Type lamotrigine 100 mg tablet 200 mg PO DAILY #1 tab 11/07/20 07/01/21 Rx lithium carbonate 300 mg capsule 600 mg PO HS #1 cap 11/07/20 07/01/21 Rx cholecalciferol (vitamin D3) 50 2,000 unit PO QAM #90 cap 11/22/20 07/01/21 Rx mcg (2,000 unit) capsule (Vitamin D3) levothyroxine 88 mcg tablet 88 mcg PO DAILY #90 tab 11/22/20 07/01/21 Rx (Synthroid) lisinopril 20 1 tab PO DAILY #90 tab 11/22/20 07/01/21 Rx mg-hydrochlorothiazide 12.5 mg tablet lithium carbonate 150 mg capsule 150 mg PO HS 07/01/21 07/01/21 History quetiapine 50 mg tablet 50 - 100 mg PO HS 07/01/21 07/01/21 History Family History Family History of: Bipolar and Doesn't Know Alcohol History Hx of Alcohol Use Over the Past 12 Months: Yes (wine occassionally; 2-4 drinks every few months) AUDIT Total Score: 2 Smoking Use Have You Smoked or Used Tobacco Products in the Last 30 Days: No Smoking Status: Never smoker Substance History Hx of Prescription Med Misuse Over the Past 12 Months: No Hx of Over the Counter Med Misuse Over the Past 12 Months: No Hx of Inhalent Misuse Over the Past 12 Months: No Hx of Organic Substance Use Over the Past 12 Months: No Hx of Illegal Substances/Street Drug Use Over Past 12 Months: No Problems as a Result of Past Substance Use: None Identified Personal History Living Arrangements: Home Highest Grade Completed: College 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[employer]) Number Of Children: 3-ages 24, 20 and 18 Beliefs That Will Affect Care: None Current Legal Problems: No Patient History Medical History Amenorrhea Bipolar 1 disorder, mixed, full remission Hypertension Hypothyroidism Knee effusion, right Low back pain Multiple thyroid nodules Obesity (BMI 30-39.9) Pain of both hip joints Restless legs syndrome Right knee DJD Sclerosis of sacroiliac joint Surgical History History of appendectomy Family History Mother Hypertension Malignant neoplasm of stomach Father Colon cancer Aunt Breast cancer, Onset Age: 40 maternal Ovarian cancer, Onset Age: 30 maternal Social History Smoking Status: Never smoker Second Hand Exposure: No; Hx Alcohol Use: Yes Hx Substance Use: No Preferred Language: Spanish Communication Ability: Effective Visual Impairment: Limited Hearing Ability: Normal Rubber Roller Grinder Required: No Beliefs That Will Affect Care: None Current Living Situation: Family current occupational status: employed Feels Safe at Home: Yes Dental Care, Regularly: Yes Physical Activity Frequency: 3-4 Times per Week Assistive Devices: Glasses Assistive Devices Comment: 2 pair of glasses Review of Systems Review of Systems: All systems reviewed & are unremarkable except as noted in HPI & below (she endorses knee pain) Physical Exam Psychiatric: Orientation: alert and oriented x 3 Apperance: appropriately groomed and + disheveled Eye Contact: good eye contact (intense) Motor Behavior: steady gait and station (walking on toes which she reports is d/t knee pain) and + psychomotor agitation Speech: + pressured speech Affect: + l abile affect Mood: + irritable mood Thought Process: + tangential thought process Thought Content: + delusions Suicidal Thoughts: denies suicidal thoughts Homicidal Thoughts: denies homicidal thoughts Hallucinations: no auditory hallucinations and no visual hallucinations Insight: + impaired insight Judgement: + impaired judgement Vital Signs (Past 24 Hours): Last Vital Signs Temp 36.8 C 07/02/21 06:28 Pulse 73 07/02/21 06:28 Resp 18 07/02/21 06:28 BP 126/84 07/02/21 06:28 Pulse Ox 98 07/01/21 23:37 Exam Statement: A physical exam was performed in the ED by Dr. Horta for the purposes of medical clearance. I accept that physical as correct and adequate for the purposes of the inpatient physical exam. Results & Data ([facility]) Laboratory Results Laboratory Results - last 24 hr 07/01/21 07/01/21 07/01/21 18:59 18:59 18:59 WBC 9.49 RBC 4.30 Hgb 12.4 Hct 37.1 MCV 86.3 MCH 28.8 MCHC 33.4 RDW Std Deviation 40.9 RDW Coeff of Page 13.0 Plt Count 309 MPV 8.9 Immature Gran % (Auto) 0.1 Neut % (Auto) 64.2 Lymph % (Auto) 27.0 Caroline % (Auto) 5.8 Eos % (Auto) 2.4 Baso % (Auto) 0.5 Neut # (Auto) 6.09 Lymph # (Auto) 2.56 Caroline # (Auto) 0.55 Eos # (Auto) 0.23 Baso # (Auto) 0.05 Immature Gran # (Auto) 0.01 Sodium 137 Potassium 3.9 Chloride 108 H Carbon Dioxide 25 Anion Gap 4.0 BUN 19 H Creatinine 0.87 Est Cr Clr Drug Dosing 70.5 Est GFR ( Amer) 86.9 Est GFR (Non-Af Amer) 75.0 BUN/Creatinine Ratio 21.5 H Glucose 122 H Calcium 10.1 Total Bilirubin 0.2 AST 22 ALT 32 Alkaline Phosphatase 94 Total Protein 7.3 Albumin 3.9 Globulin 3.4 Albumin/Globulin Ratio 1.1 TSH 0.095 L Free T4 1.68 H Urine Color Urine Appearance Urine pH Ur Specific [place] Urine Protein Urine Glucose (UA) Urine Ketones Urine Blood Urine Nitrite Urine Bilirubin Urine Urobilinogen Ur Leukocyte Esterase Urine RBC Urine WBC Ur Epithelial Cells Ur Renal Epithelial Cell Urine Bacteria Salicylates < 1.7 L Urine Opiates Screen Ur Methadone, Qual Acetaminophen < 2 L Urine Barbiturates Ur Phencyclidine (PCP) U Amphetamin/Meth Scrn MDMA (Ecstasy) Screen U Benzodiazepines Scrn [place] 0.8 Ur Cocaine Metabolite U Marijuana (THC) Screen Ethyl Alcohol mg/dL SARS-CoV-2, RNA, NAAT 07/01/21 07/01/21 07/01/21 18:59 21:36 21:36 WBC RBC Hgb Hct MCV MCH MCHC RDW Std Deviation RDW Coeff of Page Plt Count MPV Immature Gran % (Auto) Neut % (Auto) Lymph % (Auto) [place] % (Auto) Eos % (Auto) Baso % (Auto) Neut # (Auto) Lymph # (Auto) Caroline # (Auto) Eos # (Auto) Baso # (Auto) Immature Gran # (Auto) Sodium Potassium Chloride Carbon Dioxide Anion Gap BUN Creatinine Est Cr Clr Drug Dosing Est GFR ( Amer) Est GFR (Non-Af Amer) BUN/Creatinine Ratio Glucose Calcium Total Bilirubin AST ALT Alkaline Phosphatase Total Protein Albumin Globulin Albumin/Globulin Ratio TSH Free T4 Urine Color Yellow Urine Appearance Clear Urine pH 6.5 Ur Specific [place] 1.025 Urine Protein Negative Urine Glucose (UA) Negative Urine Ketones Negative Urine Blood Trace-intact H Urine Nitrite Negative Urine Bilirubin Negative Urine Urobilinogen Negative Ur Leukocyte Esterase 2+ H Urine RBC 5-10 H Urine WBC >30 H Ur Epithelial Cells >30 H Ur Renal Epithelial Cell 10-20 H Urine Bacteria Negative Salicylates Urine Opiates Screen Neg Ur Methadone, Qual Neg Acetaminophen Urine Barbiturates Neg Ur Phencyclidine (PCP) Neg U Amphetamin/Meth Scrn Neg MDMA (Ecstasy) Screen Neg U Benzodiazepines Scrn Neg [place] Ur Cocaine Metabolite Neg U Marijuana (THC) Screen Neg Ethyl Alcohol mg/dL < 3.0 SARS-CoV-2, RNA, NAAT 07/01/21 21:58 WBC RBC Hgb Hct MCV MCH MCHC RDW Std Deviation RDW Coeff of Page Plt Count MPV Immature Gran % (Auto) Neut % (Auto) Lymph % (Auto) Caroline % (Auto) Eos % (Auto) Baso % (Auto) Neut # (Auto) Lymph # (Auto) [place] # (Auto) Eos # (Auto) Baso # (Auto) Immature Gran # (Auto) Sodium Potassium Chloride Carbon Dioxide Anion Gap BUN Creatinine Est Cr Clr Drug Dosing Est GFR ( Amer) Est GFR (Non-Af Amer) BUN/Creatinine Ratio Glucose Calcium Total Bilirubin AST ALT Alkaline Phosphatase Total Protein Albumin Globulin Albumin/Globulin Ratio TSH Free T4 Urine Color Urine Appearance Urine pH Ur Specific [place] Urine Protein Urine Glucose (UA) Urine Ketones Urine Blood Urine Nitrite Urine Bilirubin Urine Urobilinogen Ur Leukocyte Esterase Urine RBC Urine WBC Ur Epithelial Cells Ur Renal Epithelial Cell Urine Bacteria Salicylates Urine Opiates Screen Ur Methadone, Qual Acetaminophen Urine Barbiturates Ur Phencyclidine (PCP) U Amphetamin/Meth Scrn MDMA (Ecstasy) Screen U Benzodiazepines Scrn [place] Ur Cocaine Metabolite U Marijuana (THC) Screen Ethyl Alcohol mg/dL SARS-CoV-2, RNA, NAAT NEGATIVE Current Inpatient Medications Current Inpatient Medications: Current Inpatient Medications Acetaminophen (Acetaminophen 325 Mg Tab) 650 mg PO Q4H PRN PRN Reason: Headache or Minor Fever Stop: 08/01/21 01:54 Last Admin: 07/02/21 03:10 Dose: 650 mg Documented by: Al Hydrox/Mg Hydrox/Simethicone (Aluminum/Magnesium Susp 30 Ml Udc) 30 ml PO Q4H PRN PRN Reason: GI Upset Stop: 08/01/21 01:54 Bismuth Subsalicylate (Bismuth Subsalicylate Liqd 236 Ml) 15 ml PO PRN PRN PRN Reason: Loose Stool Stop: 08/01/21 01:54 Lisinopril/HCTZ (Lisinopril/Hctz 20/12.5mg 1 Tab Tab) 1 tab PO QAM [place] Stop: 08/01/21 08:59 Last Admin: 07/02/21 08:10 Dose: 1 tab Documented by: Hydroxyzine HCl (Hydroxyzine Hcl 25 Mg Tab) 50 mg PO HSZ PRN PRN Reason: Insomnia Stop: 08/01/21 01:54 Hydroxyzine HCl (Hydroxyzine Hcl 25 Mg Tab) 25 mg PO Q4H PRN PRN Reason: Anxiety Stop: 08/01/21 01:54 Last Admin: 07/02/21 04:17 Dose: 25 mg Documented by: Levothyroxine Sodium (Levothyroxine Sodium 88 Mcg Tablet) 88 mcg PO QAM GLORIA Stop: 08/01/21 08:59 Last Admin: 07/02/21 08:10 Dose: 88 mcg Documented by: Magnesium Hydroxide (Magnesium Hydroxide Susp 30 Ml Udc) 30 ml PO DAILY PRN PRN Reason: Constipation Stop: 08/01/21 01:54 Olanzapine (Olanzapine 5 Mg Tablet) 5 mg PO QAM GLORIA Stop: 08/01/21 08:59 Last Admin: 07/02/21 09:53 Dose: 5 mg Documented by: Olanzapine (Olanzapine 10 Mg Tab) 10 mg PO HS [facility] Stop: 08/01/21 21:59 Sodium Chloride (Sodium Chloride 0.65% Na Soln 45 Ml ([place])) 1 - 2 sprays NA PRN PRN PRN Reason: Nasal Dryness/Congestion Stop: 08/01/21 01:54
[2021-07-02] MEDS ORDERED: LORazepam 1 MG TAB PO PRN (14:08)
[2021-07-02] MEDS: LITHIUM CARBONATE 300 MG TAB PO SCH ×2 (20:37→20:38)
[2021-07-02] MEDS ORDERED: OLANZapine 10 MG TAB PO SCH (22:00)
[2021-07-03] MEDS: lamoTRIgine 100 MG TAB PO SCH (08:07)
[2021-07-03] MEDS: OLANZapine 5 MG TABLET PO SCH (08:07)
[2021-07-03] MEDS: LEVOTHYROXINE SODIUM 88 MCG TABLET PO SCH (08:07)
[2021-07-03] MEDS: LISINOPRIL/HCTZ 20/12.5MG 1 TAB TAB PO SCH (08:08)
[2021-07-03] MEDS: hydrOXYzine HCl 25 MG TAB PO PRN (12:39)
--- NOTE | 2021-07-03 12:52 | Psychiatric Progress Note ---
Date of Service July 03, 2021 Impression / Recommendations Impression The patient is a 56 year old with a history of BPAD who was admitted for disorganized behaviors, decreased sleep and delusions consistent with acute traci. She had been reducing her prior to admission [place] dose, time frame of reduction is unclear, and has not been taking her seroquel liking contributing to emergence of current manic episode. Li level 0.8 in ED but not true trough. TSH low, she is on synthroid and free T4 just slightly high so unlikely to be contributing to traci.The patient is deemed unstable and requires psychiatric hospitalization for diagnostic clarification, safety and stabilization, medication management and development of further coping skills. 07/03/21: Showing some improvement in rate of speech and disorganization with addition of olanzapine which she is taking. Reordering fasting labs since she ate last night during awakenings. Will consolidate olanzapine dose to reduce daytime fatigue. Spoke with her outpatient psychiatrist Dr. Welch who reported that typically she responds quickly to the addition of antipsychotics to help re-establish sleep but that unfortunately this time she developed acute traci even with the addition of seroquel. He also noted that she loves work and it's very important to her so goal will be to attempt to have her discharged by Jul 09 before classes start depending on clinical improvement. (1) Bipolar disorder: (2) Bipolar disorder with severe traci: 06/23/21: reorder fasting labs for tomorrow morning, continue Li and lamictal, consolidating olanzapine to 15mg qhs. Spoke with Dr. Welch her outpatient psychiatrist. 07/02/21: The patient was admitted to the [facility] ([facility]) on q15 min checks (behavioral with suicide precautions) for safety. The patient will participate in group, recreational, and milieu therapies and will be offered additional individual and family sessions as clinically appropriate. 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 Now on 303 commitment. Chief Complaint "I didn't get to talk at all during the hearing". Review of Systems Sleep Information Total Hours of Sleep: 5 Sleep Comments: admitted at 0255. Meal Information Percent Meal Consumed - Breakfast: 75 Percent Meal Consumed - Lunch: 50 Percent Meal Consumed - Dinner: 70 Subjective Subjective Patient was seen & assessed and interval progress reviewed with treatment team nursing and social work. Hearing held this morning and status converted to 303 commitment due to expected length of treatment >5 days. She continues to demonstrate symptoms of traci including poor sleep with multiple awakenings, eating over night so unable to get fasting labs, tried to go into another patient's room last night. Today she reports fatigue from the morning dose of olanzapine and states preference to have it consolidated at bedtime. 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 Discussed goal of getting her well as quickly as possibly. Physical Exam Psychiatric Orientation: alert and oriented x 3 Apperance: appropriately groomed and + disheveled Eye Contact: good eye contact (intense) Motor Behavior: steady gait and station and + psychomotor agitation Speech: + pressured speech Affect: + labile affect Mood: + irritable mood Thought Process: + tangential thought process Thought Content: + delusions Suicidal Thoughts: denies suicidal thoughts Homicidal Thoughts: denies homicidal thoughts Hallucinations: no auditory hallucinations and no visual hallucinations Insight: + impaired insight Judgement: + impaired judgement Vital Signs (Past 24 Hours) Last Vital Signs Temp 36.9 C 07/03/21 06:33 Pulse 74 07/03/21 06:33 Resp 18 07/03/21 06:33 BP 145/99 H 07/03/21 06:33 Pulse Ox 98 07/01/21 23:37 Results & Data ([facility]) Current Inpatient Medications Current Inpatient Medications: Current Inpatient Medications Acetaminophen (Acetaminophen 325 Mg Tab) 650 mg PO Q4H PRN PRN Reason: Headache or Minor Fever Stop: 08/01/21 01:54 Last Admin: 07/02/21 03:10 Dose: 650 mg Documented by: Al Hydrox/Mg Hydrox/Simethicone (Aluminum/Magnesium Susp 30 Ml Udc) 30 ml PO Q4H PRN PRN Reason: GI Upset Stop: 08/01/21 01:54 Bismuth Subsalicylate (Bismuth Subsalicylate Liqd 236 Ml) 15 ml PO PRN PRN PRN Reason: Loose Stool Stop: 08/01/21 01:54 Lisinopril/HCTZ (Lisinopril/Hctz 20/12.5mg 1 Tab Tab) 1 tab PO DAILY [facility] Stop: 08/02/21 08:59 Last Admin: 07/03/21 08:08 Dose: 1 tab Documented by: Hydroxyzine HCl (Hydroxyzine Hcl 25 Mg Tab) 50 mg PO HSZ PRN PRN Reason: Insomnia Stop: 08/01/21 01:54 Hydroxyzine HCl (Hydroxyzine Hcl 25 Mg Tab) 25 mg PO Q4H PRN PRN Reason: Anxiety Stop: 08/01/21 01:54 Last Admin: 07/03/21 12:39 Dose: 25 mg Documented by: Lamotrigine (Lamotrigine 100 Mg Tab) 200 mg PO DAILY [facility] Stop: 08/02/21 08:59 Last Admin: 07/03/21 08:07 Dose: 200 mg Documented by: Levothyroxine Sodium (Levothyroxine Sodium 88 Mcg Tablet) 88 mcg PO DAILYBB [facility] Stop: 08/02/21 07:59 Last Admin: 07/03/21 08:07 Dose: 88 mcg Documented by: [place] Carbonate ([place] Carbonate 300 Mg Tab) 150 mg PO HS [facility] Stop: 08/01/21 21:59 Last Admin: 07/02/21 20:37 Dose: 150 mg Documented by: [place] Carbonate ([place] Carbonate 300 Mg Tab) 600 mg PO HS [facility] Stop: 08/01/21 21:59 Last Admin: 07/02/21 20:38 Dose: 600 mg Documented by: Lorazepam (Lorazepam 1 Mg Tab) 1 mg PO BID PRN PRN Reason: Agitation Stop: 08/01/21 14:07 Magnesium Hydroxide (Magnesium Hydroxide Susp 30 Ml Udc) 30 ml PO DAILY PRN PRN Reason: Constipation Stop: 08/01/21 01:54 Olanzapine (Olanzapine 5 Mg Tablet) 15 mg PO HS [place]OR[place] Stop: 08/02/21 21:59 Sodium Chloride (Sodium Chloride 0.65% Na Soln 45 Ml ([place])) 1 - 2 sprays NA PRN PRN PRN Reason: Nasal Dryness/Congestion Stop: 08/01/21 01:54 (1) Bipolar disorder Active/Remission status: currently active Current bipolar episode type: manic Current episode severity: severe Psychotic features: with psychotic features Qualified Code(s): F31.2 - Bipolar disorder, current episode manic severe with psychotic features
[2021-07-03] MEDS: LITHIUM CARBONATE 300 MG TAB PO SCH ×2 (21:49)
[2021-07-03] MEDS ORDERED: OLANZapine 5 MG TABLET PO SCH (22:00)
[2021-07-04] MEDS: LEVOTHYROXINE SODIUM 88 MCG TABLET PO SCH (08:18)
[2021-07-04 08:50] LABS: Glucose Fasting 107 mg/dl (70-99)
[2021-07-04 08:57] LABS: Chol HDL Ratio 2; Cholesterol 164 mg/dl (0-200); HDL Cholesterol 68 mg/dl; LDL Cholesterol Calculated 83 mg/dl; Triglycerides 67 mg/dl (0-150); VLDL Cholesterol 13 mg/dl
[2021-07-04] MEDS: LISINOPRIL/HCTZ 20/12.5MG 1 TAB TAB PO SCH (09:36)
[2021-07-04] MEDS: lamoTRIgine 100 MG TAB PO SCH (09:50)
--- NOTE | 2021-07-04 14:28 | Psychiatric Progress Note ---
Date of Service July 04, 2021 Impression / Recommendations Impression The patient is a 56 year old with a history of BPAD who was admitted for disorganized behaviors, decreased sleep and delusions consistent with acute traci. She had been reducing her prior to admission [place] dose, time frame of reduction is unclear, and has not been taking her seroquel liking contributing to emergence of current manic episode. Li level 0.8 in ED but not true trough. TSH low, she is on synthroid and free T4 just slightly high so unlikely to be contributing to traci.The patient is deemed unstable and requires psychiatric hospitalization for diagnostic clarification, safety and stabilization, medication management and development of further coping skills. 07/04/21: care by Dr. Mckeon reviewed. Patient does appear to be overcorrected on her thyroid, likely as lithium induced with supplementation by synthroid and the latter not readjusted when she alters lithium dosing. Still not sleeping but traci is slowing resolving. (1) Bipolar disorder: (2) Bipolar disorder with severe traci: 07/04/21: continue current medications but decrease Synthroid to 50 mcg, will need f/u in 6 weeks. Changing Lamictal to 100 mg Bid as doesn't like taste of 200 mg and will offer olanzapine as zydis to limit the number of pills she needs to swallow. She has had a positive response to Restoril in the past and is showing insight into traci as the cause of her insomnia and would like to try this again tonight. Reviewed combined sedation with other meds and short term use given class of benzodiazepine. 07/03/21: reorder fasting labs for tomorrow morning, continue Li and lamictal, consolidating olanzapine to 15mg qhs. Spoke with Dr. Welch her outpatient psychiatrist. 07/02/21: The patient was admitted to the [facility] on q15 min checks (behavioral with suicide precautions) for safety. The patient will participate in group, recreational, and milieu therapies and will be offered additional individual and family sessions as clinically appropriate. 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 Now on 303 commitment. Chief Complaint "my thoughts are more together but I still stumble for my words". Review of Systems Sleep Information Total Hours of Sleep: 1.5 Sleep Comments: Meal Information Percent Meal Consumed - Breakfast: 100 Percent Meal Consumed - Lunch: 50 Percent Meal Consumed - Dinner: 100 Subjective Subjective Patient was seen & assessed and interval progress reviewed with treatment team. Patient reports sleeping well despite staff reporting 1.5 hrs. Patient would prefer pills in capsule form, reviewed that not all are available. Per staff remains disorganized, seeking reassurance at nurses station, preoccupied, thought blocking. Physical Exam Psychiatric Orientation: alert and oriented x 3 Apperance: appropriately groomed Eye Contact: good eye contact (intense) Motor Behavior: steady gait and station Speech: no pressured speech Affect: + blunted affect Mood: no irritable mood Thought Process: + thought blocking and + circumstantial thought process Thought Content: + delusions Suicidal Thoughts: denies suicidal thoughts Homicidal Thoughts: denies homicidal thoughts Hallucinations: no auditory hallucinations and no visual hallucinations Insight: + impaired insight Judgement: + impaired judgement Vital Signs (Past 24 Hours) Last Vital Signs Temp 36.7 C 07/04/21 06:43 Pulse 79 07/04/21 06:44 Resp 16 07/04/21 06:43 BP 128/82 07/04/21 06:44 Pulse Ox 98 07/01/21 23:37 Results & Data ([facility]) Laboratory Results Laboratory Results - last 24 hr 07/04/21 08:11 Fasting Glucose 107 H Triglycerides 67 Cholesterol 164 LDL Cholesterol, Calc 83 VLDL Cholesterol, Calc 13 HDL Cholesterol 68 Cholesterol/HDL Ratio 2 Current Inpatient Medications Current Inpatient Medications: Current Inpatient Medications Acetaminophen (Acetaminophen 325 Mg Tab) 650 mg PO Q4H PRN PRN Reason: Headache or Minor Fever Stop: 08/01/21 01:54 Last Admin: 07/02/21 03:10 Dose: 650 mg Documented by: Al Hydrox/Mg Hydrox/Simethicone (Aluminum/Magnesium Susp 30 Ml Udc) 30 ml PO Q4H PRN PRN Reason: GI Upset Stop: 08/01/21 01:54 Bismuth Subsalicylate (Bismuth Subsalicylate Liqd 236 Ml) 15 ml PO PRN PRN PRN Reason: Loose Stool Stop: 08/01/21 01:54 Lisinopril/HCTZ (Lisinopril/Hctz 20/12.5mg 1 Tab Tab) 1 tab PO DAILY [facility] Stop: 08/02/21 08:59 Last Admin: 07/04/21 09:36 Dose: 1 tab Documented by: Hydroxyzine HCl (Hydroxyzine Hcl 25 Mg Tab) 50 mg PO HSZ PRN PRN Reason: Insomnia Stop: 08/01/21 01:54 Hydroxyzine HCl (Hydroxyzine Hcl 25 Mg Tab) 25 mg PO Q4H PRN PRN Reason: Anxiety Stop: 08/01/21 01:54 Last Admin: 07/03/21 12:39 Dose: 25 mg Documented by: Lamotrigine (Lamotrigine 100 Mg Tab) 100 mg PO BID [facility] Stop: 08/04/21 08:59 Levothyroxine Sodium (Levothyroxine Sodium 88 Mcg Tablet) 88 mcg PO DAILYBB [facility] Stop: 08/02/21 07:59 Last Admin: 07/04/21 08:18 Dose: 88 mcg Documented by: [place] Carbonate ([place] Carbonate 300 Mg Tab) 150 mg PO HS [facility] Stop: 08/01/21 21:59 Last Admin: 07/03/21 21:49 Dose: 150 mg Documented by: [place] Carbonate ([place] Carbonate 300 Mg Tab) 600 mg PO HS [facility] Stop: 08/01/21 21:59 Last Admin: 07/03/21 21:49 Dose: 600 mg Documented by: Lorazepam (Lorazepam 1 Mg Tab) 1 mg PO BID PRN PRN Reason: Agitation Stop: 08/01/21 14:07 Magnesium Hydroxide (Magnesium Hydroxide Susp 30 Ml Udc) 30 ml PO DAILY PRN PRN Reason: Constipation Stop: 08/01/21 01:54 Olanzapine (Olanzapine Zydis 5 Mg Orally Dis. Tab) 15 mg PO HS [facility] Stop: 08/03/21 21:59 Sodium Chloride (Sodium Chloride 0.65% Na Soln 45 Ml ([place])) 1 - 2 sprays NA PRN PRN PRN Reason: Nasal Dryness/Congestion Stop: 08/01/21 01:54 Temazepam (Temazepam 15 Mg Capsule) 15 mg PO HS [facility] Stop: 08/03/21 21:59 Temazepam (Temazepam 15 Mg Capsule) 15 mg PO HS PRN PRN Reason: Insomnia Stop: 08/03/21 21:59 (1) Bipolar disorder Active/Remission status: currently active Current bipolar episode type: manic Current episode severity: severe Psychotic features: with psychotic features Qualified Code(s): F31.2 - Bipolar disorder, current episode manic severe with psychotic features
[2021-07-04] MEDS: LITHIUM CARBONATE 300 MG TAB PO SCH ×2 (21:06)
[2021-07-04] MEDS: OLANZapine ZYDIS 5 MG ORALLY DIS. TAB PO SCH (21:06)
[2021-07-04] MEDS: TEMAZEPAM 15 MG CAPSULE PO SCH (21:07)
[2021-07-04] MEDS ORDERED: TEMAZEPAM 15 MG CAPSULE PO PRN (22:00)
[2021-07-05] MEDS: hydrOXYzine HCl 25 MG TAB PO PRN ×2 (00:12→03:04)
[2021-07-05] MEDS: LEVOTHYROXINE SODIUM 50 MCG TABLET PO SCH (08:49)
[2021-07-05] MEDS: LISINOPRIL/HCTZ 20/12.5MG 1 TAB TAB PO SCH (08:50)
[2021-07-05] MEDS: lamoTRIgine 100 MG TAB PO SCH ×2 (08:50→20:10)
--- NOTE | 2021-07-05 10:42 | Psychiatric Progress Note ---
Date of Service July 05, 2021 Impression / Recommendations Impression The patient is a 56 year old with a history of BPAD who was admitted for disorganized behaviors, decreased sleep and delusions consistent with acute traci. She had been reducing her prior to admission [place] [facility] dose, time frame of reduction is unclear, and has not been taking her seroquel liking contributing to emergence of current manic episode. Li level 0.8 in ED but not true trough. 07/05/21: improvement, lithium level due 07/07/21. Psycho ed provided re: need for Zyprexa and any taper would be at discretion of outpatient psychiatrist. (1) Bipolar disorder with severe traci: 07/05/21: continue Restoril trial for sleep as traci continues to resolve. 07/04/21: continue current medications but decrease Synthroid to 50 mcg, will need f/u in 6 weeks. Changing Lamictal to 100 mg Bid as doesn't like taste of 200 mg and will offer olanzapine as zydis to limit the number of pills she needs to swallow. She has had a positive response to Restoril in the past and is showing insight into traci as the cause of her insomnia and would like to try this again tonight. Reviewed combined sedation with other meds and short term use given class of benzodiazepine. 07/03/21: reorder fasting labs for tomorrow morning, continue Li and lamictal, consolidating olanzapine to 15mg qhs. Spoke with Dr. Welch her outpatient psychiatrist. 07/02/21: The patient was admitted to the [facility] ([facility] mental health unit) on q15 min checks (behavioral with suicide precautions) for safety. The patient will participate in group, recreational, and milieu therapies and will be offered additional individual and family sessions as clinically appropriate. 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 Now on 303 commitment. Chief Complaint "I'm getting better but do I have to take the antipsychotic when I leave?". Review of Systems Sleep Information Total Hours of Sleep: 4.5 Sleep Comments: pt on q-15 minute checks Meal Information Percent Meal Consumed - Breakfast: 50 Percent Meal Consumed - Lunch: 50 Percent Meal Consumed - Dinner: 100 Subjective Subjective Patient was seen & assessed and interval progress reviewed with nursing. She had complained for constipation but states it's resolved. Slept better than previous night but still require prns. Still has word finding difficulties due to thought disorganization but ongoing improvement. Focussed on son's birthday on 07[birth year]. Physical Exam Psychiatric Orientation: alert and oriented x 3 Apperance: appropriately groomed Eye Contact: good eye contact (intense) Motor Behavior: steady gait and station Speech: no pressured speech Affect: + blunted affect Mood: no irritable mood Thought Process: + thought blocking and + circumstantial thought process Thought Content: reality based without delusions Suicidal Thoughts: denies suicidal thoughts Homicidal Thoughts: denies homicidal thoughts Hallucinations: no auditory hallucinations and no visual hallucinations Insight: + impaired insight Judgement: + impaired judgement Vital Signs (Past 24 Hours) Last Vital Signs Temp 36.5 C 07/05/21 06:46 Pulse 84 07/05/21 06:46 Resp 16 07/05/21 06:46 BP 125/90 07/05/21 06:46 Pulse Ox 98 07/01/21 23:37 Results & Data (U) Current Inpatient Medications Current Inpatient Medications: Current Inpatient Medications Acetaminophen (Acetaminophen 325 Mg Tab) 650 mg PO Q4H PRN PRN Reason: Headache or Minor Fever Stop: 08/01/21 01:54 Last Admin: 07/02/21 03:10 Dose: 650 mg Documented by: Al Hydrox/Mg Hydrox/Simethicone (Aluminum/Magnesium Susp 30 Ml Udc) 30 ml PO Q4H PRN PRN Reason: GI Upset Stop: 08/01/21 01:54 Bismuth Subsalicylate (Bismuth Subsalicylate Liqd 236 Ml) 15 ml PO PRN PRN PRN Reason: Loose Stool Stop: 08/01/21 01:54 Lisinopril/HCTZ (Lisinopril/Hctz 20/12.5mg 1 Tab Tab) 1 tab PO DAILY [facility] Stop: 08/02/21 08:59 Last Admin: 07/05/21 08:50 Dose: 1 tab Documented by: Hydroxyzine HCl (Hydroxyzine Hcl 25 Mg Tab) 50 mg PO HSZ PRN PRN Reason: Insomnia Stop: 08/01/21 01:54 Last Admin: 07/05/21 03:04 Dose: 50 mg Documented by: Hydroxyzine HCl (Hydroxyzine Hcl 25 Mg Tab) 25 mg PO Q4H PRN PRN Reason: Anxiety Stop: 08/01/21 01:54 Last Admin: 07/03/21 12:39 Dose: 25 mg Documented by: Lamotrigine (Lamotrigine 100 Mg Tab) 100 mg PO BID [facility] Stop: 08/04/21 08:59 Last Admin: 07/05/21 08:50 Dose: 100 mg Documented by: Levothyroxine Sodium (Levothyroxine Sodium 50 Mcg Tablet) 50 mcg PO DAILYBB [facility] Stop: 08/04/21 07:59 Last Admin: 07/05/21 08:49 Dose: 50 mcg Documented by: [facility] Carbonate ([place] Carbonate 300 Mg Tab) 150 mg PO [facility] Stop: 08/01/21 21:59 Last Admin: 07/04/21 21:06 Dose: 150 mg Documented by: [facility] Carbonate ([place] Carbonate 300 Mg Tab) 600 mg PO HS [facility] Stop: 08/01/21 21:59 Last Admin: 07/04/21 21:06 Dose: 600 mg Documented by: Lorazepam (Lorazepam 1 Mg Tab) 1 mg PO BID PRN PRN Reason: Agitation Stop: 08/01/21 14:07 Magnesium Hydroxide (Magnesium Hydroxide Susp 30 Ml Udc) 30 ml PO DAILY PRN PRN Reason: Constipation Stop: 08/01/21 01:54 Olanzapine (Olanzapine Zydis 5 Mg Orally Dis. Tab) 15 mg PO [facility] Stop: 08/03/21 21:59 Last Admin: 07/04/21 21:06 Dose: 15 mg Documented by: Sodium Chloride (Sodium Chloride 0.65% Na Soln 45 Ml ([place])) 1 - 2 sprays NA PRN PRN PRN Reason: Nasal Dryness/Congestion Stop: 08/01/21 01:54 Temazepam (Temazepam 15 Mg Capsule) 15 mg PO HS [facility] Stop: 08/03/21 21:59 Last Admin: 07/04/21 21:07 Dose: 15 mg Documented by: Temazepam (Temazepam 15 Mg Capsule) 15 mg PO HS PRN PRN Reason: Insomnia Stop: 08/03/21 21:59
[2021-07-05] MEDS: OLANZapine ZYDIS 5 MG ORALLY DIS. TAB PO SCH (20:59)
[2021-07-05] MEDS: TEMAZEPAM 15 MG CAPSULE PO SCH (20:59)
[2021-07-05] MEDS: LITHIUM CARBONATE 300 MG TAB PO SCH ×2 (21:00)
[2021-07-06] MEDS: LISINOPRIL/HCTZ 20/12.5MG 1 TAB TAB PO SCH (08:32)
[2021-07-06] MEDS: LEVOTHYROXINE SODIUM 50 MCG TABLET PO SCH (08:33)
[2021-07-06] MEDS: lamoTRIgine 100 MG TAB PO SCH ×2 (08:33→21:05)
--- NOTE | 2021-07-06 10:43 | Psychiatric Progress Note ---
Date of Service July 06, 2021 Impression / Recommendations Impression The patient is a 56 year old with a history of BPAD who was admitted for disorganized behaviors, decreased sleep and delusions consistent with acute traci. She had been reducing her prior to admission [place] dose, time frame of reduction is unclear, and has not been taking her seroquel liking contributing to emergence of current manic episode. Li level 0.8 in ED but not true trough. 07/06/21: improvement, lithium level due 07/07/21 (1) Bipolar disorder with severe traci: 07/06/21: taper Zyprexa to 10 mg daily to determine minimally effective dose, sleep issue does not appear to be related to residual traci. Restoril 22.5 mg this hs and monitor. needs family meeting. 07/05/21: continue Restoril trial for sleep as traci continues to resolve. 07/04/21: continue current medications but decrease Synthroid to 50 mcg, will need f/u in 6 weeks. Changing Lamictal to 100 mg Bid as doesn't like taste of 200 mg and will offer olanzapine as zydis to limit the number of pills she needs to swallow. She has had a positive response to Restoril in the past and is showing insight into traci as the cause of her insomnia and would like to try this again tonight. Reviewed combined sedation with other meds and short term use given class of benzodiazepine. 07/03/21: reorder fasting labs for tomorrow morning, continue Li and lamictal, consolidating olanzapine to 15mg qhs. Spoke with Dr. Welch her outpatient psychiatrist. 07/02/21: The patient was admitted to the [facility] ([facility]) on q15 min checks (behavioral with suicide precautions) for safety. The patient will participate in group, recreational, and milieu therapies and will be offered additional individual and family sessions as clinically appropriate. 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 Now on 303 commitment. Chief Complaint "I'm feeling much calmer, very tired today though but it's for a good cause". Review of Systems Sleep Information Total Hours of Sleep: 5.25 Sleep Comments: pt on q-15 minute checks Meal Information Percent Meal Consumed - Breakfast: 50 Percent Meal Consumed - Lunch: 50 Percent Meal Consumed - Dinner: 100 Subjective Subjective Patient was seen & assessed and interval progress reviewed with treatment nursing and social work. only issue overnight remains sleep, appears tired this am but did receive repeat Restoril around 1 am. Patient asks appropriate questions about her care and medications and desires to minimize exposure to Zyprexa. Reviewed that length of time remains on outside of hospital is at the discretion of her treating psychiatrist but I typically say at least 1 month back to work before tapering. Physical Exam Psychiatric Orientation: oriented x 3 Apperance: appropriately groomed Eye Contact: good eye contact Motor Behavior: steady gait and station Speech: no pressured speech Affect: + blunted affect Mood: no irritable mood Thought Process: goal directed thought process Thought Content: reality based without delusions Suicidal Thoughts: denies suicidal thoughts Homicidal Thoughts: denies homicidal thoughts Hallucinations: no auditory hallucinations and no visual hallucinations Vital Signs (Past 24 Hours) Last Vital Signs Temp 36.9 C 07/06/21 06:42 Pulse 78 07/06/21 06:43 Resp 18 07/06/21 06:42 BP 112/83 07/06/21 06:43 Pulse Ox 98 07/01/21 23:37 Results & Data ([facility]) Current Inpatient Medications Current Inpatient Medications: Current Inpatient Medications Acetaminophen (Acetaminophen 325 Mg Tab) 650 mg PO Q4H PRN PRN Reason: Headache or Minor Fever Stop: 08/01/21 01:54 Last Admin: 07/02/21 03:10 Dose: 650 mg Documented by: Al Hydrox/Mg Hydrox/Simethicone (Aluminum/Magnesium Susp 30 Ml Udc) 30 ml PO Q4H PRN PRN Reason: GI Upset Stop: 08/01/21 01:54 Bismuth Subsalicylate (Bismuth Subsalicylate Liqd 236 Ml) 15 ml PO PRN PRN PRN Reason: Loose Stool Stop: 08/01/21 01:54 Lisinopril/HCTZ (Lisinopril/Hctz 20/12.5mg 1 Tab Tab) 1 tab PO DAILY [facility] Stop: 08/02/21 08:59 Last Admin: 07/06/21 08:32 Dose: 1 tab Documented by: Hydroxyzine HCl (Hydroxyzine Hcl 25 Mg Tab) 25 mg PO Q4H PRN PRN Reason: Anxiety Stop: 08/01/21 01:54 Last Admin: 07/03/21 12:39 Dose: 25 mg Documented by: Lamotrigine (Lamotrigine 100 Mg Tab) 100 mg PO BID [facility] Stop: 08/04/21 08:59 Last Admin: 07/06/21 08:33 Dose: 100 mg Documented by: Levothyroxine Sodium ([facility]othyroxine S[facility] 50 Mcg Tablet) [facility] Stop: 08/04/21 07:59 Last Admin: 07/06/21 08:33 Dose: 50 mcg Documented by: [place] Carbonate ([place] Carbonate 300 Mg Tab) 150 mg PO [facility] Stop: 08/01/21 21:59 Last Admin: 07/05/21 21:00 Dose: 150 mg Documented by: [place] Carbonate ([place] Carbonate 300 Mg Tab) 600 mg PO [facility] Stop: 08/01/21 21:59 Last Admin: 07/05/21 21:00 Dose: 600 mg Documented by: Lorazepam (Lorazepam 1 Mg Tab) 1 mg PO BID PRN PRN Reason: Agitation Stop: 08/01/21 14:07 Magnesium Hydroxide (Magnesium Hydroxide Susp 30 Ml Udc) 30 ml PO DAILY PRN PRN Reason: Constipation Stop: 08/01/21 01:54 Last Admin: 07/04/21 18:45 Dose: 30 ml Documented by: Olanzapine (Olanzapine Zydis 5 Mg Orally Dis. Tab) 15 mg PO [facility] Stop: 08/03/21 21:59 Last Admin: 07/05/21 20:59 Dose: 15 mg Documented by: Sodium Chloride (Sodium Chloride 0.65% Na Soln 45 Ml ([place])) 1 - 2 sprays NA PRN PRN PRN Reason: Nasal Dryness/Congestion Stop: 08/01/21 01:54 Last Admin: 07/05/21 20:47 Dose: 2 sprays Documented by: Temazepam (Temazepam 15 Mg Capsule) 15 mg PO HS [facility] Stop: 08/03/21 21:59 Last Admin: 07/05/21 20:59 Dose: 15 mg Documented by: Temazepam (Temazepam 15 Mg Capsule) 15 mg PO HS PRN PRN Reason: Insomnia Stop: 08/03/21 21:59 Last Admin: 07/06/21 01:25 Dose: 15 mg Documented by:
[2021-07-06] MEDS: LITHIUM CARBONATE 300 MG TAB PO SCH ×2 (21:46)
[2021-07-06] MEDS ORDERED: TEMAZEPAM 7.5 MG CAPSULE PO SCH (22:00)
[2021-07-07] MEDS: LEVOTHYROXINE SODIUM 50 MCG TABLET PO SCH (08:11)
[2021-07-07] MEDS: LISINOPRIL/HCTZ 20/12.5MG 1 TAB TAB PO SCH (08:12)
[2021-07-07] MEDS: lamoTRIgine 100 MG TAB PO SCH ×2 (09:26→21:37)
--- NOTE | 2021-07-07 11:18 | Psychiatric Progress Note ---
Date of Service July 07, 2021 Impression / Recommendations Impression The patient is a 56 year old with a history of BPAD who was admitted for disorganized behaviors, decreased sleep and delusions consistent with acute traci. She had been reducing her prior to admission [place] dose, time frame of reduction is unclear, and has not been taking her seroquel liking contributing to emergence of current manic episode. Li level 0.8 in ED but not true trough. 07/07/21: improvement, lithium level is at target (0.9). (1) Bipolar disorder with severe traci: 07/07/21: shift pm meds to earlier, decrease Restoril due to side effects and/or patient is open to a shorter acting agent, encouraged to stay up/out of room today so can reset sleep schedule. 07/06/21: taper Zyprexa to 10 mg daily to determine minimally effective dose, s leep issue does not appear to be related to residual traci. Restoril 22.5 mg this hs and monitor. needs family meeting. 07/05/21: continue Restoril trial for sleep as traci continues to resolve. 07/04/21: continue current medications but decrease Synthroid to 50 mcg, will need f/u in 6 weeks. Changing Lamictal to 100 mg Bid as doesn't like taste of 200 mg and will offer olanzapine as zydis to limit the number of pills she needs to swallow. She has had a positive response to Restoril in the past and is showing insight into traci as the cause of her insomnia and would like to try this again tonight. Reviewed combined sedation with other meds and short term use given class of benzodiazepine. 07/03/21: reorder fasting labs for tomorrow morning, continue Li and lamictal, consolidating olanzapine to 15mg qhs. Spoke with Dr. Welch her outpatient psychiatrist. 07/02/21: The patient was admitted to the [facility] ([facility] inpatient mental health unit) on q15 min checks (behavioral with suicide precautions) for safety. The patient will participate in group, recreational, and milieu therapies and will be offered additional individual and family sessions as clinically appropriate. 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 Now on 303 commitment. Chief Complaint "I can't be this tired during the day". Review of Systems Sleep Information Total Hours of Sleep: 4 Sleep Comments: pt given restoril per rn. pt on q-15 minute checks Meal Information Percent Meal Consumed - Breakfast: 75 Percent Meal Consumed - Lunch: 50 Percent Meal Consumed - Dinner: 100 Subjective Subjective Patient was seen & assessed and interval progress reviewed with treatment team. Is appropriate for meeting with son today. appears less sedated than yesterday but still tired/frustrated as did not sleep well. She is ambivalent re: Restoril and again asked how long she needs to continue Zyprexa after discharge. Refused am lamictal solely as would prefer to take it at night. Has been appropriate in the milieu. Physical Exam Psychiatric Orientation: alert and oriented x 3 Apperance: appropriately groomed Eye Contact: good eye contact Motor Behavior: steady gait and station Speech: no pressured speech Affect: + blunted affect Mood: no irritable mood Thought Process: goal directed thought process Thought Content: reality based without delusions Suicidal Thoughts: denies suicidal thoughts Homicidal Thoughts: denies homicidal thoughts Hallucinations: no auditory hallucinations and no visual hallucinations Vital Signs (Past 24 Hours) Last Vital Signs Temp 36.6 C 07/07/21 06:43 Pulse 80 07/07/21 06:44 Resp 18 07/07/21 06:43 BP 129/97 07/07/21 06:44 Pulse Ox 98 07/01/21 23:37 Results & Data ([facility]) Laboratory Results Laboratory Results - last 24 hr 07/07/21 08:59 [place] 0.9 Current Inpatient Medications Current Inpatient Medications: Current Inpatient Medications Acetaminophen (Acetaminophen 325 Mg Tab) 650 mg PO Q4H PRN PRN Reason: Headache or Minor Fever Stop: 08/01/21 01:54 Last Admin: 07/02/21 03:10 Dose: 650 mg Documented by: Al Hydrox/Mg Hydrox/Simethicone (Aluminum/Magnesium Susp 30 Ml Udc) 30 ml PO Q4H PRN PRN Reason: GI Upset Stop: 08/01/21 01:54 Bismuth Subsalicylate (Bismuth Subsalicylate Liqd 236 Ml) 15 ml PO PRN PRN PRN Reason: Loose Stool Stop: 08/01/21 01:54 Lisinopril/HCTZ (Lisinopril/Hctz 20/12.5mg 1 Tab Tab) 1 tab PO DAILY [facility] Stop: 08/02/21 08:59 Last Admin: 07/07/21 08:12 Dose: 1 tab Documented by: Hydroxyzine HCl (Hydroxyzine Hcl 25 Mg Tab) 25 mg PO Q4H PRN PRN Reason: Anxiety Stop: 08/01/21 01:54 Last Admin: 07/03/21 12:39 Dose: 25 mg Documented by: Lamotrigine (Lamotrigine 100 Mg Tab) 100 mg PO BID [facility] Stop: 08/04/21 08:59 Last Admin: 07/07/21 09:26 Dose: Not Given Documented by: Levothyroxine Sodium ([facility]othyroxine S[facility] 50 Mcg Tablet) [facility]: 08/04/21 07:59 Last Admin: 07/07/21 08:11 Dose: 50 mcg Documented by: [place] Carbonate ([place] Carbonate 300 Mg Tab) 150 mg PO [facility] Stop: 08/01/21 21:59 Last Admin: 07/06/21 21:46 Dose: 150 mg Documented by: [place] Carbonate ([place] Carbonate 300 Mg Tab) 600 mg PO [facility] Stop: 08/01/21 21:59 Last Admin: 07/06/21 21:46 Dose: 600 mg Documented by: Lorazepam (Lorazepam 1 Mg Tab) 1 mg PO BID PRN PRN Reason: Agitation Stop: 08/01/21 14:07 Last Admin: 07/07/21 01:24 Dose: 1 mg Documented by: Magnesium Hydroxide (Magnesium Hydroxide Susp 30 Ml Udc) 30 ml PO DAILY PRN PRN Reason: Constipation Stop: 08/01/21 01:54 Last Admin: 07/04/21 18:45 Dose: 30 ml Documented by: Olanzapine (Olanzapine Zydis 10 Mg Orally Dis. Tab) 10 mg PO HS [facility] Stop: 08/05/21 21:59 Last Admin: 07/06/21 21:46 Dose: 10 mg Documented by: Sodium Chloride (Sodium Chloride 0.65% Na Soln 45 Ml ([place])) 1 - 2 sprays NA PRN PRN PRN Reason: Nasal Dryness/Congestion Stop: 08/01/21 01:54 Last Admin: 07/05/21 20:47 Dose: 2 sprays Documented by: Temazepam (Temazepam 7.5 Mg Capsule) 22.5 mg PO HS [facility] Stop: 08/05/21 21:59 Last Admin: 07/06/21 21:45 Dose: 22.5 mg Documented by: Mental Health & Subst Abuse Tx Psychiatrist Name of Psychiatrist: Dr. Welch Psychiatrist's Date of Appointment with Psychiatrist: 07/15/21 Time of Appointment with Psychiatrist: 9:00 AM Psychiatric Appointment Comment: Via Telehealth Therapist Name of Therapist: Dr. Welch Therapist's Date of Therapist Appointment: 07/15/21 Time of Therapist Appointment: 9:00 AM Therapy Appointment Comment: Via Telehealth Post Discharge Appointments Primary Care Physician Name Of Family Doctor: BRIDGETTE Castillo Primary Care Date of Appointment with PCP: 07/22/21 Time of Appointment with PCP: 11:30 AM Provider Appointment Comment: [address] [place] [address] Contact Information Discharge Discharge Address: [address] [place] [address] [place] [address]
[2021-07-07] MEDS: LITHIUM CARBONATE 300 MG TAB PO SCH ×2 (21:35→21:36)
[2021-07-07] MEDS: TEMAZEPAM 15 MG CAPSULE PO SCH (21:37)
[2021-07-08] MEDS: LISINOPRIL/HCTZ 20/12.5MG 1 TAB TAB PO SCH (07:58)
[2021-07-08] MEDS: LEVOTHYROXINE SODIUM 50 MCG TABLET PO SCH (07:58)
--- NOTE | 2021-07-08 12:04 | Psychiatric Progress Note ---
Date of Service July 08, 2021 Impression / Recommendations Impression The patient is a 56 year old with a history of BPAD who was admitted for disorganized behaviors, decreased sleep and delusions consistent with acute traci. She had been reducing her prior to admission [place] dose, time frame of reduction is unclear, and has not been taking her seroquel liking contributing to emergence of current manic episode. Li level 0.8 in ED but not true trough. 07/08/21: improvement Plan: continue current meds and treatment plan. 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 Now on 303 commitment. Chief Complaint "I feel better today". Review of Systems Sleep Information Total Hours of Sleep: 3.75 Sleep Comments: pt given restoril per rn. pt on q-15 minute checks Meal Information Percent Meal Consumed - Breakfast: 70 Percent Meal Consumed - Lunch: 70 Percent Meal Consumed - Dinner: 50 Subjective Subjective Patient was seen & assessed and interval progress reviewed with nursing and social work. Remains focussed on discharge. discussed how/when to take meds to improve compliance and agrees to use a pill minder. She feels that working on her housework would be therapeutic. Physical Exam Psychiatric Orientation: alert and oriented x 3 Apperance: appropriately dressed and appropriately groomed Eye Contact: good eye contact Motor Behavior: no abnormal motor movements Speech: normal rate/rhythm/volume of speech Affect: + constricted affect Mood: + anxious mood Thought Process: goal directed thought process Thought Content: reality based without delusions Suicidal Thoughts: denies suicidal thoughts Homicidal Thoughts: denies homicidal thoughts Hallucinations: no auditory hallucinations and no visual hallucinations Cognition: attention grossly intact and language grossly intact Estimated Intelligence: consistent with education level Insight: + fair insight Vital Signs (Past 24 Hours) Last Vital Signs Temp 36.7 C 07/08/21 06:43 Pulse 75 07/08/21 06:44 Resp 16 07/08/21 06:43 BP 114/73 07/08/21 06:44 Pulse Ox 98 07/01/21 23:37 Results & Data ([facility]) Current Inpatient Medications Current Inpatient Medications: Current Inpatient Medications Acetaminophen (Acetaminophen 325 Mg Tab) 650 mg PO Q4H PRN PRN Reason: Headache or Minor Fever Stop: 08/01/21 01:54 Last Admin: 07/02/21 03:10 Dose: 650 mg Documented by: Al Hydrox/Mg Hydrox/Simethicone (Aluminum/Magnesium Susp 30 Ml Udc) 30 ml PO Q4H PRN PRN Reason: GI Upset Stop: 08/01/21 01:54 Bismuth Subsalicylate (Bismuth Subsalicylate Liqd 236 Ml) 15 ml PO PRN PRN PRN Reason: Loose Stool Stop: 08/01/21 01:54 Lisinopril/HCTZ (Lisinopril/Hctz 20/12.5mg 1 Tab Tab) 1 tab PO DAILY [facility] Stop: 08/02/21 08:59 Last Admin: 07/08/21 07:58 Dose: 1 tab Documented by: Lamotrigine (Lamotrigine 100 Mg Tab) 200 mg PO TODAY@1999 [facility] Stop: 08/07/21 19:59 Levothyroxine Sodium (Levothyroxine Sodium 50 Mcg Tablet) 50 mcg PO DAILYBB [facility] Stop: 08/04/21 07:59 Last Admin: 07/08/21 07:58 Dose: 50 mcg Documented by: [place] Carbonate ([place] Carbonate 300 Mg Tab) [address] [facility] Stop: 08/01/21 21:59 Last Admin: 07/07/21 21:35 Dose: 150 mg Documented by: [place] Carbonate ([place] Carbonate 300 Mg Tab) [address] [facility] Stop: 08/01/21 21:59 Last Admin: 07/07/21 21:36 Dose: 600 mg Documented by: Lorazepam (Lorazepam 1 Mg Tab) 1 mg PO BID PRN PRN Reason: Agitation Stop: 08/01/21 14:07 Last Admin: 07/07/21 01:24 Dose: 1 mg Documented by: Magnesium Hydroxide (Magnesium Hydroxide Susp 30 Ml Udc) 30 ml PO DAILY PRN PRN Reason: Constipation Stop: 08/01/21 01:54 Last Admin: 07/04/21 18:45 Dose: 30 ml Documented by: Olanzapine (Olanzapine Zydis 10 Mg Orally Dis. Tab) 10 mg PO TODAY@1999 [facility] Stop: 08/06/21 19:59 Last Admin: 07/07/21 21:34 Dose: 10 mg Documented by: Sodium Chloride (Sodium Chloride 0.65% Na Soln 45 Ml ([place])) 1 - 2 sprays NA PRN PRN PRN Reason: Nasal Dryness/Congestion Stop: 08/01/21 01:54 Last Admin: 07/05/21 20:47 Dose: 2 sprays Documented by: Temazepam (Temazepam 15 Mg Capsule) 15 mg PO QPM [facility] Stop: 08/06/21 20:59 Last Admin: 07/07/21 21:37 Dose: 15 mg Documented by: Mental Health & Subst Abuse Tx Psychiatrist Name of Psychiatrist: Dr. Welch Psychiatrist's Date of Appointment with Psychiatrist: 07/15/21 Time of Appointment with Psychiatrist: 9:00 AM Psychiatric Appointment Comment: Via Telehealth Therapist Name of Therapist: Dr. Welch Therapist's Date of Therapist Appointment: 07/15/21 Time of Therapist Appointment: 9:00 AM Therapy Appointment Comment: Via Telehealth Post Discharge Appointments Primary Care Physician Name Of Family Doctor: BRIDGETTE Castillo Primary Care Date of Appointment with PCP: 07/22/21 Time of Appointment with PCP: 11:30 AM Provider Appointment Comment: [address] [facility] [place] [place] [address] Contact Information Discharge Discharge Address: [address] [place] [address] [place] [address]
[2021-07-08] MEDS ORDERED: lamoTRIgine 100 MG TAB PO SCH ×2 (20:00)
[2021-07-08] MEDS: LITHIUM CARBONATE 300 MG TAB PO SCH ×2 (20:57→20:58)
[2021-07-08] MEDS: TEMAZEPAM 15 MG CAPSULE PO SCH (21:01)
[2021-07-09 06:34] VITALS: TEMP 98.4
[2021-07-09] MEDS: LEVOTHYROXINE SODIUM 50 MCG TABLET PO SCH (07:45)
[2021-07-09] MEDS: LISINOPRIL/HCTZ 20/12.5MG 1 TAB TAB PO SCH (08:55)
[2021-07-09] MEDS ORDERED: DESTROY THIS MEDICATION ONE (09:05)
--- NOTE | 2021-07-09 09:16 | Discharge Summary ---
Date of Service July 09, 2021 History of Present Illness [place] describes a long history of bipolar disorder with a history of prior hospitalizations for traci. She presented to the ED with her son who completed the 302 petition after her outpatient psychiatrist recommended hospitalization. Her son noted in the petition and during discussions with ED providers that over the past two weeks she has been showing symptoms of traci including being able to answer basic questions, mood lability, lack of sleep, increased goal driven activities such as reorganizing items in the home, disorganized/bizarre behaviors such as keeping a hammer, media executive and scissors in her bedside table and having delusions about family members being who are still alive. In the ED she was noted to have behavioral disinhibition including somehow climbing into another patient's bed in an adjoining room and then demonstrating hypersexual and disinhibited behaviors this morning on the [facility] including attempting to change her clothes in the common area and being intrusive with peers. She agrees that she is currently experiencing symptoms of traci though notes this time is more unusual because she only lowered her dose of [place] a few days ago and normally she has traci after stopping her Whiterocks or tapering it slowly. She can verify some of her history including past psychiatric treatment and social history but struggles to recall the events leading up to this current hospitalization. She states she trusts her long-time outpatient psychiatrist and that he recently added seroquel to help with sleep and to prevent her from developing traci. She also notes regret at having her children experience her when she is experiencing acute traci and that she wanted to reduce her lithium dose due to "being vain" but she couldn't describe what specific side effects it may have been causing to contribute to her vanity or appearance. Physical Exam Psychiatric See admission H&P and DOD summary. Vital Signs (Past 24 Hours) Last Vital Signs Temp 36.9 C 07/09/21 06:33 Pulse 98 H 07/09/21 06:34 Resp 16 07/09/21 06:33 BP 130/87 07/09/21 06:34 Pulse Ox 98 07/01/21 23:37 Principal Diagnosis bipolar disorder Psychiatric Data See daily stay summary. In short, safety was maintained and the patient was cooperative with care. Medication changes included retitration of lithium, use of Zyprexa for acute stabilization, and a decrease in thyroid medication as slightly overcorrected and did not want to progress to full iatrogenic hyperthyroidism and they tolerated this well. Her sleep improved and thoughts became much more organized. A family session was held with her son and safety plan was completed prior to discharge. Recommended to patient that she not drive if she feels slowed or sedated. Ideally Zyprexa should be tapered to minimally effective dose given metabolic profile and she voiced good understanding of need for monitoring with her psychiatrist. I suggest she transition back to work and ensure mood stable for a few weeks before initiating this. She has been resistant to this class of medication prior to admission (wasn't taking Seroquel as prescribed). Seroquel was returned to the patient should her outpatient psychiatrist want to proceed with replacing Zyprexa. She was also encouraged to use a pill minder so that compliance can be monitored. She will need f/u TSH in about 6 weeks. Day of Discharge Assessment Today the patient voices readiness for discharge. They note improvement in mood and deny thoughts to harm self or others. Thoughts remain organized and they are improved from admission. There is no evidence of psychosis. They agree to take mediations as prescribed and keep follow-up appointments. They are stable for discharge to outpatient level of care. Advance Directives Advance Directives Information Provided: Yes Advance Directives: No Mental Health Advance Directive: No Advance Directives on File: No Living Will: No Power of Xerox Machine Mechanic: No Advance Directives Reason:: Declines as Mental Health Visit. 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 Relationships: Yes Supportive Family: Yes Good Rapport with Provider: Yes Tobacco Cessation at Discharge Tobacco Cessation Medication Prescribed at Discharge: Not Applicable/Non-Smoker Total Time Total Time Spent: Greater Than 30 Minutes Total Time Includes: Examination of the patient, Discharge Planning and Medication Reconciliation Discharge Data Lab Results 07/01/21 07/01/21 07/01/21 18:59 18:59 18:59 WBC 9.49 RBC 4.30 Hgb 12.4 Hct 37.1 MCV 86.3 MCH 28.8 MCHC 33.4 RDW Std Deviation 40.9 RDW Coeff of Page 13.0 Plt Count 309 MPV 8.9 Immature Gran % (Auto) 0.1 Neut % (Auto) 64.2 Lymph % (Auto) 27.0 [place] % (Auto) 5.8 Eos % (Auto) 2.4 Baso % (Auto) 0.5 Neut # (Auto) 6.09 Lymph # (Auto) 2.56 [place] # (Auto) 0.55 Eos # (Auto) 0.23 Baso # (Auto) 0.05 Immature Gran # (Auto) 0.01 Sodium 137 Potassium 3.9 Chloride 108 H Carbon Dioxide 25 Anion Gap 4.0 BUN 19 H Creatinine 0.87 Est Cr Clr Drug Dosing 70.5 Est GFR ( Amer) 86.9 Est GFR (Non-Af Amer) 75.0 BUN/Creatinine Ratio 21.5 H Glucose 122 H Fasting Glucose Calcium 10.1 Total Bilirubin 0.2 AST 22 ALT 32 Alkaline Phosphatase 94 Total Protein 7.3 Albumin 3.9 Globulin 3.4 Albumin/Globulin Ratio 1.1 Triglycerides Cholesterol LDL Cholesterol, Calc VLDL Cholesterol, Calc HDL Cholesterol Cholesterol/HDL Ratio TSH 0.095 L Free T4 1.68 H Urine Color Urine Appearance Urine pH Ur Specific R[place] Urine Protein Urine Glucose (UA) Urine Ketones Urine Blood Urine Nitrite Urine Bilirubin Urine Urobilinogen Ur Leukocyte Esterase Urine RBC Urine WBC Ur Epithelial Cells Ur Renal Epithelial Cell Urine Bacteria Salicylates < 1.7 L Urine Opiates Screen Ur Methadone, Qual Acetaminophen < 2 L Urine Barbiturates Ur Phencyclidine (PCP) U Amphetamin/Meth Scrn MDMA (Ecstasy) Screen U Benzodiazepines Scrn Whiterocks 0.8 Ur Cocaine Metabolite U Marijuana (THC) Screen Ethyl Alcohol mg/dL SARS-CoV-2, RNA, NAAT 07/01/21 07/01/21 07/01/21 18:59 21:36 21:36 WBC RBC Hgb Hct MCV MCH MCHC RDW Std Deviation RDW Coeff of Page Plt Count MPV Immature Gran % (Auto) Neut % (Auto) Lymph % (Auto) [place] % (Auto) Eos % (Auto) Baso % (Auto) Neut # (Auto) Lymph # (Auto) [place] # (Auto) Eos # (Auto) Baso # (Auto) Immature Gran # (Auto) Sodium Potassium Chloride Carbon Dioxide Anion Gap BUN Creatinine Est Cr Clr Drug Dosing Est GFR ( Amer) Est GFR (Non-Af Amer) BUN/Creatinine Ratio Glucose Fasting Glucose Calcium Total Bilirubin AST ALT Alkaline Phosphatase Total Protein Albumin Globulin Albumin/Globulin Ratio Triglycerides Cholesterol LDL Cholesterol, Calc VLDL Cholesterol, Calc HDL Cholesterol Cholesterol/HDL Ratio TSH Free T4 Urine Color Yellow Urine Appearance Clear Urine pH 6.5 Ur Specific Ral[place] 1.025 Urine Protein Negative Urine Glucose (UA) Negative Urine Ketones Negative Urine Blood Trace-intact H Urine Nitrite Negative Urine Bilirubin Negative Urine Urobilinogen Negative Ur Leukocyte Esterase 2+ H Urine RBC 5-10 H Urine WBC >30 H Ur Epithelial Cells >30 H Ur Renal Epithelial Cell 10-20 H Urine Bacteria Negative Salicylates Urine Opiates Screen Neg Ur Methadone, Qual Neg Acetaminophen Urine Barbiturates Neg Ur Phencyclidine (PCP) Neg U Amphetamin/Meth Scrn Neg MDMA (Ecstasy) Screen Neg U Benzodiazepines Scrn Neg [place] Ur Cocaine Metabolite Neg U Marijuana (THC) Screen Neg Ethyl Alcohol mg/dL < 3.0 SARS-CoV-2, RNA, NAAT 07/01/21 07/04/21 07/07/21 21:58 08:11 08:59 WBC RBC Hgb Hct MCV MCH MCHC RDW Std Deviation RDW Coeff of Page Plt Count MPV Immature Gran % (Auto) Neut % (Auto) Lymph % (Auto) [place] % (Auto) Eos % (Auto) Baso % (Auto) Neut # (Auto) Lymph # (Auto) [place] # (Auto) Eos # (Auto) Baso # (Auto) Immature Gran # (Auto) Sodium Potassium Chloride Carbon Dioxide Anion Gap BUN Creatinine Est Cr Clr Drug Dosing Est GFR ( Amer) Est GFR (Non-Af Amer) BUN/Creatinine Ratio Glucose Fasting Glucose 107 H Calcium Total Bilirubin AST ALT Alkaline Phosphatase Total Protein Albumin Globulin Albumin/Globulin Ratio Triglycerides 67 Cholesterol 164 LDL Cholesterol, Calc 83 VLDL Cholesterol, Calc 13 HDL Cholesterol 68 Cholesterol/HDL Ratio 2 TSH Free T4 Urine Color Urine Appearance Urine pH Ur Specific R[place] Urine Protein Urine Glucose (UA) Urine Ketones Urine Blood Urine Nitrite Urine Bilirubin Urine Urobilinogen Ur Leukocyte Esterase Urine RBC Urine WBC Ur Epithelial Cells Ur Renal Epithelial Cell Urine Bacteria Salicylates Urine Opiates Screen Ur Methadone, Qual Acetaminophen Urine Barbiturates Ur Phencyclidine (PCP) U Amphetamin/Meth Scrn MDMA (Ecstasy) Screen U Benzodiazepines Scrn [place] 0.9 Ur Cocaine Metabolite U Marijuana (THC) Screen Ethyl Alcohol mg/dL SARS-CoV-2, RNA, NAAT NEGATIVE Hospital Course (1) Bipolar disorder with severe traci: 07/07/21: shift pm meds to earlier, decrease Restoril due to side effects and/or patient is open to a shorter acting agent, encouraged to stay up/out of room today so can reset sleep schedule. 07/06/21: taper Zyprexa to 10 mg daily to determine minimally effective dose, sleep issue does not appear to be related to residual traci. Restoril 22.5 mg this hs and monitor. needs family meeting. 07/05/21: continue Restoril trial for sleep as traci continues to resolve. 07/04/21: continue current medications but decrease Synthroid to 50 mcg, will need f/u in 6 weeks. Changing Lamictal to 100 mg Bid as doesn't like taste of 200 mg and will offer olanzapine as zydis to limit the number of pills she needs to swallow. She has had a positive response to Restoril in the past and is showing insight into traci as the cause of her insomnia and would like to try this again tonight. Reviewed combined sedation with other meds and short term use given class of benzodiazepine. 07/03/21: reorder fasting labs for tomorrow morning, continue Li and lamictal, consolidating olanzapine to 15mg qhs. Spoke with Dr. Welch her outpatient psychiatrist. 07/02/21: The patient was admitted to the [facility] health [facility]) on q15 min checks (behavioral with suicide precautions) for safety. The patient will participate in group, recreational, and milieu therapies and will be offered additional individual and family sessions as clinically appropriate. -Olanzapine 5mg qAM & 10mg qHS -Continue lithium 750mg qhs (will get repeat level in 5 days on 07/07/21 -Continue lamictal 200mg qd -Continue synthroid -Fasting glucose and lipid panel in AM Mental Health & Subst Abuse Tx Psychiatrist Name of Psychiatrist: Dr. Welch Psychiatrist's Date of Appointment with Psychiatrist: 07/15/21 Time of Appointment with Psychiatrist: 9:00 AM Psychiatric Appointment Comment: Via Telehealth Psychiatrist Release of Information: Obtained, Reviewed and Signed Therapist Name of Therapist: Dr. Welch Therapist's Date of Therapist Appointment: 07/15/21 Time of Therapist Appointment: 9:00 AM Therapy Appointment Comment: Via Telehealth Therapist Release of Information: Obtained, Reviewed and Signed Post Discharge Appointments Primary Care Physician Name Of Family Doctor: BRIDGETTE Castillo Primary [facility] Date of Appointment with PCP: 07/22/21 Time of Appointment with PCP: 11:30 AM Provider Appointment Comment: [address] [facility] [id number] Primary Care Release of Information: Obtained, Reviewed and Signed Smoking Cessation Counseling Tobacco Cessation Medication Prescribed at Discharge: Not Applicable/Non-Smoker Other #1: Name of Aftercare Appointment: Potential Psychiatry and Therapy Options: [facility] Phone Number of Aftercare Appointment: [phone] Aftercare Appointment Comment: [address] [facility] [place] #2: Name of Aftercare Appointment: Potential Psychiatry Option: [facility] Phone Number of Aftercare Appointment: [phone] Aftercare Appointment Comment: [address] [facility] #3: Name of Aftercare Appointment: Potential Therapy Option: [facility] Phone Number of Aftercare Appointment: [phone] Aftercare Appointment Comment: [address] [facility], [address], [place] Contact Information Discharge Discharge Address: [address] [place] [id number] Discharge Plan Discharge Items Patient Disposition: Home - Self-Care Reason For Visit: BIPOLAR AFFECTIVE DISORDER Discharge Diagnosis: bipolar disorder Activity: Resume your previous activity Non-emergency contact: Primary Care Provider and Psychiatrist Call non-emergency contact if: you have any medication questions and your symptoms worsen Follow-up/Referrals: Jhonathan Castillo, [Primary Care Provider] - Diet: Regular Addtl Attending Provider Instructions: SPECIAL CARE INSTRUCTIONS: 1. Follow through with your scheduled aftercare appointments. If unable to keep an appointment, please call to reschedule. 2. Take your medication only as prescribed. Medication should not be changed or stopped without the approval of your doctor. In the event of worsening symptoms or concerns about side effects, contact your doctor immediately. 3. Utilize new healthy coping skills, anger management skills, and stress management skills learned during your hospitalization. Journal feelings and process them with a support person. Identify stressors or situations that may result in relapse, deterioration or inappropriate behaviors and develop a plan to deal with those issues. 4. If your coping skills are ineffective and you are in crisis, contact your outpatient providers for direction. If unable to reach your providers, please call the [facility] CRISIS LINE AT , go to the [facility] walk-in center at [address], [address], [place], or go to the closest Emergency Room. 5. Avoid alcohol and un-prescribed drugs. 6. You have been provided with the Mental Health Advance Directives Pamphlet for your review. 7. Your condition is stable for discharge to outpatient level of care, but recovery is an ongoing process. Ifthoughts to harm yourself or others return, follow the safety plan developed during your stay. Planning for a safe return home includes securing weapons. Our treatment team recommends weaponsbe removed from the home until your outpatient provider reassesses your progress. In rare cases where the items themselvescannot be removed, guns and ammunitionshould be secured separatelyand keys stored by a reliable personoutside of the home. If you were admitted on an involuntary commitment, the police or other legal authorities may be involved in this process. AFTERCARE APPOINTMENTS: * Please call your insurance company prior to your scheduled appointment to c andreeam your aftercare providers are covered. Take your insurance information to your appointments. WHO TO CALL AND WHEN: Medical Emergencies: For questions or emergencies related to your hospital stay, please contact the Inpatient Behavioral Health Unit at [phone]. A signing teacher is on-call 25/01 for the Behavioral Health Unit for emergencies At any time you feel your situation is an emergency, you may also call 911 immediately. Pending Studies at Discharge: No Stand-Alone Forms: [facility], Smoking Cessation Medications and DC Order Prescriptions: New temazepam 15 mg Capsule 15 mg PO QPM PRN (Reason: insomnia) 14 Days Qty: 14 RF: 0 olanzapine 10 mg Tablet,Disintegrating 10 mg PO TODAY@1999 30 Days Qty: 30 RF: 0 Continued lisinopril-hydrochlorothiazide 20-12.5 mg tablet 1 tab PO DAILY Qty: 90 RF: 3 lamotrigine 100 mg tablet 200 mg PO DAILY Qty: 1 RF: 0 lithium carbonate 300 mg capsule 600 mg PO HS Qty: 1 RF: 0 lithium carbonate 150 mg capsule 150 mg PO HS RF: 0 Discontinued quetiapine 50 mg tablet 50 - 100 mg PO HS RF: 0 No Action cholecalciferol (vitamin D3) [Vitamin D3] 50 mcg (2,000 unit) capsule 2,000 unit PO QAM Qty: 90 RF: 3 levothyroxine [Synthroid] 88 mcg tablet 88 mcg PO DAILY Qty: 90 RF: 3 Discharge Orders: Discharge Order (Routine); Ordered 07/09/21 Ordered By: Nena Betancourt Admission Data Admit Date/Time: 07/02/21 01:55 Attending Provider: Nena Betancourt Admit Provider: Ainsley Mckeon Primary Care Provider: Jhonathan Castillo Other Interventions: PSY Interdisciplinary Discharge Planning Last Done: 07/09/21 09:02 Coding Level of Care Code 75125 D/C day mgmt > 30 min Diagnoses Bipolar disorder with severe traci F31.13
[2021-07-09 09:48] VITALS: BP 125/90; PULSE 78
== END 2021-07-09 10:41 | disposition home or self-care (01) | DRG 885 ==
LOC: ED 16:26 → SUATTDRO 07-02 01:55 → 3S 07-02 01:55
DX: I10 Essential (primary) hypertension; E03.9 Hypothyroidism, unspecified; F31.2 Bipolar disorder, current episode manic severe with psychotic features

== ENCOUNTER 2022-04-14 15:23 | Inpatient (IN) ==
[2022-04-14] MEDS ORDERED: SODIUM CHLORIDE 0.9% 1000ML 1,000 ML IV SCH (15:45)
[2022-04-14 16:02] LABS: Appearance Urine Cloudy (Clear); Bacteria Urine Automated Negative (Negative); Bilirubin Urine Negative (Negative); Blood Urine Negative (Negative); Color Urine Yellow; Epithelial Cell Urine Auto >30 /lpf (0-5); Glucose Urine UA Negative (Negative); Ketones Urine 1+ (Negative); Leukocyte Esterase Urine 1+ (Negative); Nitrite Urine Negative (Negative); Protein Urine Negative (Negative); Specific Gravity Urine 1.022 (1.000-1.030); Urobilinogen Urine Negative (Negative); pH Urine 5.5 (4.5-7.5)
[2022-04-14 16:28] LABS: Calcium Oxalate Crystals Urine Present (None Prsent); RBC Urine Automated 0-4 /hpf (0-4)
[2022-04-14 16:30] LABS: Basophils # (auto) 0.07 K/uL (0-0.2); Basophils % (auto) 0.7 %; Eosinophils # (auto) 0.11 K/uL (0-0.50); Eosinophils % (auto) 1.1 %; Hematocrit (blood only) 40.1 % (34.1-44.9); Hemoglobin 13.4 g/dl (12.0-16.0); Immature Granulocytes # (auto) 0.02 K/uL (0.00-0.02); Immature Granulocytes % (auto) 0.2 %; Lymphocytes # (auto) 1.99 K/uL (1.2-3.4); Lymphocytes % (auto) 19.5 %; Mean Corpuscular Hemoglobin 28.8 pg (25.0-34.0); Mean Corpuscular Hgb Conc 33.4 g/dL (32.0-36.0); Mean Corpuscular Volume 86.2 fL (80.0-100.0); Mean Platelet Volume 8.7 fL (9.4-12.3); Monocytes # (auto) 0.58 K/uL (0.24-0.82); Monocytes % (auto) 5.7 %; Neutrophils # (auto) 7.46 K/uL (1.4-6.5); Neutrophils % (auto) 72.8 %; Platelet Count 339 K/uL (130-400); RDW Coefficient of Variation 12.6 % (11.5-14.5); RDW Standard Deviation 39.4 fL (36.4-46.3); Red Blood Count 4.65 M/uL (3.93-5.22); White Blood Count 10.23 K/ul (4.8-10.8)
--- NOTE | 2022-04-14 16:48 | CT Scan Report ---
CT OF THE HEAD WITHOUT CONTRAST CLINICAL HISTORY: Altered mental status. COMPARISON STUDY: No previous studies for comparison. CT DOSE: 614.27 mGy.cm TECHNIQUE: Helical axial images of the head were obtained without IV contrast. Automated exposure con trol was utilized for the study. A dose lowering technique was utilized adhering to the principles o f ALARA. FINDINGS: No acute intracranial hemorrhage, midline shift or mass effect is present. The ventricular system is unremarkable. The basal cisterns are patent. No extra-axial collections are present. There are no findings to suggest acute dural sinus thrombosis or acute territorial infarct. No significant calvarial abnormalities are present. Visualized portions of the sinuses and mastoid air cells are manuel ar. IMPRESSION: No acute intracranial findings. ACT 112: Negative or not required by law. Electronically signed by: Brennon Bay M.D. 04/14/2022 4:47 PM
[2022-04-14 16:51] LABS: Acetaminophen < 3 ug/ml (10-30); Salicylate < 3.0 mg/dl (3.0-30)
[2022-04-14 16:53] LABS: Albumin Globulin Ratio 1.7 (0.9-2); Albumin Level 4.7 gm/dl (3.4-5.0); BUN Creatinine Ratio 17.9 (10-20); Bilirubin,Total 0.7 mg/dl (0.2-1.0); Calcium 10.7 mg/dl (8.5-10.1); Creatinine Clr Calc Pharmacy 66.3 ml/min; Est GFR (African American) 77.6 ml/min; Globulin 2.7 gm/dl (2.5-4.0); Potassium 3.9 mmol/L (3.5-5.1); Total Protein 7.4 gm/dl (6.0-8.3)
[2022-04-14 17:01] LABS: Amphetamines+Metham, Urine Neg (Neg); Barbiturates, Urine Neg (Neg); Benzodiazepine, Urine Pos (Neg); Cocaine, Urine Neg (Neg); MDMA (Ecstacy), Urine Neg (Neg); Methadone, Urine Neg (Neg); Opiate, Urine Neg (Neg); Phencyclidine, Urine Neg (Neg)
--- NOTE | 2022-04-14 17:09 | Emergency Department Note ---
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 Patient is here for mental health evaluation. Patient states she is feeling increasingly stressed and tired. Son reports that the patient has not been sleeping has a history of bipolar stomach and has been drinking more alcohol recently. Patient has a psychiatrist in [place] who referred her to the emergency department as he reports that the patient has been taking her lisinopril which she usually does not take. Patient is on lithium and the psychiatrist referred her to the emergency department to make sure she does not have lithium toxicity secondary to the coadministration of lithium and lisinopril. Home Medications Medication Instructions Recorded Confirmed Type lithium carbonate 300 mg capsule 600 mg PO HS #1 cap 11/07/20 04/14/22 Rx cholecalciferol (vitamin D3) 50 2,000 unit PO QAM #90 caps 11/22/20 04/14/22 Rx mcg (2,000 unit) capsule (Vitamin D3) lisinopril 20 1 tab PO DAILY #90 tabs 11/22/20 04/14/22 Rx mg-hydrochlorothiazide 12.5 mg tablet lithium carbonate 150 mg capsule 150 mg PO HS 07/01/21 04/14/22 History lamotrigine 100 mg tablet 100 mg PO HS 02/11/22 04/14/22 History levothyroxine 50 mcg tablet 50 mcg PO DAILYBB 30 days #90 tabs 03/24/22 04/14/22 Rx (Synthroid) Allergies Allergy/AdvReac Type Severity Reaction Status Date / Time No Known Allergies Allergy Verified 02/11/22 12:07 Past Med/Surg History Medical History Amenorrhea Bipolar 1 disorder, mixed, full remission Encounter for screening for malignant neoplasm of colon Encounter for screening for malignant neoplasm of rectum Hypertension Hypothyroidism Knee effusion, right Low back pain Multiple thyroid nodules Obesity (BMI 30-39.9) Pain of both hip joints Restless legs syndrome Right knee DJD Sclerosis of sacroiliac joint Surgical History History of appendectomy Family History Mother Hypertension Malignant neoplasm of stomach Father Colon cancer Aunt Breast cancer, Onset Age: 40 maternal Ovarian cancer, Onset Age: 30 maternal Social History Smoking Status: Unknown if ever smoked Second Hand Exposure: No; Hx Alcohol Use: Yes Hx Substance Use: No Preferred Language: Chinese Communication Ability: Effective Visual Impairment: Limited Hearing Ability: Normal Ad Copy Writer Required: No Beliefs That Will Affect Care: None Current Living Situation: Family current occupational status: employed Feels Safe at Home: Yes Dental Care, Regularly: Yes Physical Activity Frequency: 3-4 Times per Week Assistive Devices: Glasses Review of Systems A total of 10 systems reviewed and were otherwise negative Physical Exam Vital Signs Vital Signs - 24 hr 04/14/22 15:27 Temperature 37 C Temperature Source Temporal Artery Scan Pulse Rate 92 H Respiratory Rate 19 Respiratory Effort / Characteristics Non-Labored Respiratory Depth Normal Blood Pressure 144/91 H Blood Pressure Mean 108 Pulse Oximetry 95 Oxygen Delivery Method Room Air Sepsis Recent Fever Within 48 Hours No Sepsis New/Unexplained Change in Mental Status N/A Sepsis Action Taken by Nursing No Action Required Physical Exam GENERAL: She is oriented to person, place, and time. She appears well-developed and well-nourished. She does not appear distressed. HENT: Exam performed. -Head: Normocephalic and atraumatic. -Right Ear: External ear normal. No mastoid tenderness. -Left Ear: External ear normal. No mastoid tenderness. -Mouth/Throat: The oropharynx is clear and moist. No trismus in the jaw. No dental abscesses or uvula swelling. No oropharyngeal exudate or tonsillar abscesses. EYES: Conjunctivae and EOM are normal. Pupils are equal, round, and reactive to light. Right eye exhibits no discharge. Left eye exhibits no discharge. No scleral icterus. NECK: Normal range of motion. Neck supple. No JVD present. No spinous process tenderness present. No carotid bruit present. No rigidity. No tracheal deviation and normal range of motion present. No Brudzinski's sign and no Kernig's sign noted. CV: Normal rate, regular rhythm, normal heart sounds and intact distal pulses. There is no peripheral edema. Palpable radial pulses bue. PULM/CHEST: Effort normal and breath sounds normal. No respiratory distress. No stridor. She has no wheezes. She has no rales. -Chest Wall: She exhibits no tenderness. ABD: The abdomen is soft. Bowel sounds are normal. She has no distension. No mass is present. There is no tenderness. There is no rebound, no guarding, no Mejia's sign and no tenderness at McBurney's point. Rovsig negative MUSC/SKEL: Normal range of motion. There is no peripheral edema, tenderness or deformity. LYMPH: No cervical adenopathy. NEURO: She is alert and oriented to person, place, and time. She has normal strength. No cranial nerve deficit or sensory deficit. Coordination and gait normal. GCS eye subscore is 4. GCS verbal subscore is 5. GCS motor subscore is 6. Cerebellar tests wnl. SKIN: Skin is warm and dry. She is not diaphoretic. PSYCH: She has a normal mood and affect. Behavior is normal. Judgment and thought content normal. Course Course 1534: The patient was evaluated in room A5. A complete history and physical exam was performed 1755: Patient medically cleared. Awaiting psychiatric evaluation and placement. Patient placed in observation at this time 1858: Awaiting psychiatric placement. Case signed out to Dr. Poole. Administered Medications Discontinued Medications Sodium Chloride (Nss 1000ml) 1,000 mls @ 999 mls/hr IV .Q1H1M [facility] Stop: 04/14/22 16:45 Last Infusion: 04/14/22 17:20 Dose: 0 mls/hr Documented By: Admin: 04/14/22 16:19 Dose: 999 mls/hr Documented By: QGV Medical Decision Making Laboratory Data Result diagrams: 04/14/22 16:12 04/14/22 16:12 Lab Results 04/14/22 04/14/22 04/14/22 Range/Units 15:43 15:43 16:12 WBC 10.23 (4.8-10.8) K/ul RBC 4.65 (3.93-5.22) M/uL Hgb 13.4 (12.0-16.0) g/dl Hct 40.1 (34.1-44.9) % MCV 86.2 (80.0-100.0) fL MCH 28.8 (25.0-34.0) pg MCHC 33.4 (32.0-36.0) g/dL RDW Std Deviation 39.4 (36.4-46.3) fL RDW Coeff of Page 12.6 (11.5-14.5) % Plt Count 339 (130-400) K/uL MPV 8.7 L (9.4-12.3) fL Immature Gran % (Auto) 0.2 % Neut % (Auto) 72.8 % Lymph % (Auto) 19.5 % Garvin % (Auto) 5.7 % Eos % (Auto) 1.1 % Baso % (Auto) 0.7 % Neut # (Auto) 7.46 H (1.4-6.5) K/uL Lymph # (Auto) 1.99 (1.2-3.4) K/uL Garvin # (Auto) 0.58 (0.24-0.82) K/uL Eos # (Auto) 0.11 (0-0.50) K/uL Baso # (Auto) 0.07 (0-0.2) K/uL Immature Gran # (Auto) 0.02 (0.00-0.02) K/uL Sodium (136-145) mmol/L Potassium (3.5-5.1) mmol/L Chloride (98-107) mmol/L Carbon Dioxide (21-32) mmol/L Anion Gap (3-11) BUN (6-23) mg/dl Creatinine (0.6-1.2) mg/dl Est Cr Clr Drug Dosing ml/min Est GFR ( Amer) ml/min Est GFR (Non-Af Amer) ml/min BUN/Creatinine Ratio (10-20) Glucose (70-99(Fasting)) mg/dl Calcium (8.5-10.1) mg/dl Total Bilirubin (0.2-1.0) mg/dl AST (13-39) U/L ALT (7-52) U/L Alkaline Phosphatase (34-104) U/L Total Protein (6.0-8.3) gm/dl Albumin (3.4-5.0) gm/dl Globulin (2.5-4.0) gm/dl Albumin/Globulin Ratio (0.9-2) TSH (0.300-4.500) uIu/ml Urine Color Yellow Urine Appearance Cloudy A (Clear) Urine pH 5.5 (4.5-7.5) Ur Specific [place] 1.022 (1.000-1.030) Urine Protein Negative (Negative) Urine Glucose (UA) Negative (Negative) Urine Ketones 1+ H (Negative) Urine Blood Negative (Negative) Urine Nitrite Negative (Negative) Urine Bilirubin Negative (Negative) Urine Urobilinogen Negative (Negative) Ur Leukocyte Esterase 1+ H (Negative) Urine WBC (Auto) 10-30 H (0-5) /hpf Urine RBC (Auto) 0-4 (0-4) /hpf U Hyaline Cast (Auto) 1-5 (0-5) /lpf U Epithel Cells (Auto) >30 H (0-5) /lpf Urine Bacteria (Auto) Negative (Negative) Urine Crystals Calcium Oxalate A (None Prsent) Calcium Oxalate Crystal Present A (None Prsent) Salicylates (3.0-30) mg/dl Urine Opiates Screen Neg (Neg) Ur Methadone, Qual Neg (Neg) Acetaminophen (10-30) ug/ml Urine Barbiturates Neg (Neg) Ur Phencyclidine (PCP) Neg (Neg) U Amphetamin/Meth Scrn Neg (Neg) MDMA (Ecstasy) Screen Neg (Neg) U Benzodiazepines Scrn Pos H (Neg) Constantine (0.6-1.2) mmol/L Ur Cocaine Metabolite Neg (Neg) U Marijuana (THC) Screen Neg (Neg) Ethyl Alcohol mg/dL (<10.0) mg/dl 04/14/22 04/14/22 04/14/22 Range/Units 16:12 16:12 16:12 WBC (4.8-10.8) K/ul RBC (3.93-5.22) M/uL Hgb (12.0-16.0) g/dl Hct (34.1-44.9) % MCV (80.0-100.0) fL MCH (25.0-34.0) pg MCHC (32.0-36.0) g/dL RDW Std Deviation (36.4-46.3) fL RDW Coeff of Page (11.5-14.5) % Plt Count (130-400) K/uL MPV (9.4-12.3) fL Immature Gran % (Auto) % Neut % (Auto) % Lymph % (Auto) % Garvin % (Auto) % Eos % (Auto) % Baso % (Auto) % Neut # (Auto) (1.4-6.5) K/uL Lymph # (Auto) (1.2-3.4) K/uL Garvin # (Auto) (0.24-0.82) K/uL Eos # (Auto) (0-0.50) K/uL Baso # (Auto) (0-0.2) K/uL Immature Gran # (Auto) (0.00-0.02) K/uL Sodium 136 (136-145) mmol/L Potassium 3.9 (3.5-5.1) mmol/L Chloride 104 (98-107) mmol/L Carbon Dioxide 27 (21-32) mmol/L Anion Gap 5 (3-11) BUN 17 (6-23) mg/dl Creatinine 0.95 (0.6-1.2) mg/dl Est Cr Clr Drug Dosing 66.3 ml/min Est GFR ( Amer) 77.6 ml/min Est GFR (Non-Af Amer) 67.0 ml/min BUN/Creatinine Ratio 17.9 (10-20) Glucose 127 H (70-99(Fasting)) mg/dl Calcium 10.7 H (8.5-10.1) mg/dl Total Bilirubin 0.7 (0.2-1.0) mg/dl AST 20 (13-39) U/L ALT 20 (7-52) U/L Alkaline Phosphatase 87 (34-104) U/L Total Protein 7.4 (6.0-8.3) gm/dl Albumin 4.7 (3.4-5.0) gm/dl Globulin 2.7 (2.5-4.0) gm/dl Albumin/Globulin Ratio 1.7 (0.9-2) TSH 2.396 (0.300-4.500) uIu/ml Urine Color Urine Appearance (Clear) Urine pH (4.5-7.5) Ur Specific [place] (1.000-1.030) Urine Protein (Negative) Urine Glucose (UA) (Negative) Urine Ketones (Negative) Urine Blood (Negative) Urine Nitrite (Negative) Urine Bilirubin (Negative) Urine Urobilinogen (Negative) Ur Leukocyte Esterase (Negative) Urine WBC (Auto) (0-5) /hpf Urine RBC (Auto) (0-4) /hpf U Hyaline Cast (Auto) (0-5) /lpf U Epithel Cells (Auto) (0-5) /lpf Urine Bacteria (Auto) (Negative) Urine Crystals (None Prsent) Calcium Oxalate Crystal (None Prsent) Salicylates < 3.0 L (3.0-30) mg/dl Urine Opiates Screen (Neg) Ur Methadone, Qual (Neg) Acetaminophen < 3 L (10-30) ug/ml Urine Barbiturates (Neg) Ur Phencyclidine (PCP) (Neg) U Amphetamin/Meth Scrn (Neg) MDMA (Ecstasy) Screen (Neg) U Benzodiazepines Scrn (Neg) Constantine 1.0 (0.6-1.2) mmol/L Ur Cocaine Metabolite (Neg) U Marijuana (THC) Screen (Neg) Ethyl Alcohol mg/dL (<10.0) mg/dl 04/14/22 Range/Units 16:12 WBC (4.8-10.8) K/ul RBC (3.93-5.22) M/uL Hgb (12.0-16.0) g/dl Hct (34.1-44.9) % MCV (80.0-100.0) fL MCH (25.0-34.0) pg MCHC (32.0-36.0) g/dL RDW Std Deviation (36.4-46.3) fL RDW Coeff of Page (11.5-14.5) % Plt Count (130-400) K/uL MPV (9.4-12.3) fL Immature Gran % (Auto) % Neut % (Auto) % Lymph % (Auto) % Garvin % (Auto) % Eos % (Auto) % Baso % (Auto) % Neut # (Auto) (1.4-6.5) K/uL Lymph # (Auto) (1.2-3.4) K/uL Garvin # (Auto) (0.24-0.82) K/uL Eos # (Auto) (0-0.50) K/uL Baso # (Auto) (0-0.2) K/uL Immature Gran # (Auto) (0.00-0.02) K/uL Sodium (136-145) mmol/L Potassium (3.5-5.1) mmol/L Chloride (98-107) mmol/L Carbon Dioxide (21-32) mmol/L Anion Gap (3-11) BUN (6-23) mg/dl Creatinine (0.6-1.2) mg/dl Est Cr Clr Drug Dosing ml/min Est GFR ( Amer) ml/min Est GFR (Non-Af Amer) ml/min BUN/Creatinine Ratio (10-20) Glucose (70-99(Fasting)) mg/dl Calcium (8.5-10.1) mg/dl Total Bilirubin (0.2-1.0) mg/dl AST (13-39) U/L ALT (7-52) U/L Alkaline Phosphatase (34-104) U/L Total Protein (6.0-8.3) gm/dl Albumin (3.4-5.0) gm/dl Globulin (2.5-4.0) gm/dl Albumin/Globulin Ratio (0.9-2) TSH (0.300-4.500) uIu/ml Urine Color Urine Appearance (Clear) Urine pH (4.5-7.5) Ur Specific [place] (1.000-1.030) Urine Protein (Negative) Urine Glucose (UA) (Negative) Urine Ketones (Negative) Urine Blood (Negative) Urine Nitrite (Negative) Urine Bilirubin (Negative) Urine Urobilinogen (Negative) Ur Leukocyte Esterase (Negative) Urine WBC (Auto) (0-5) /hpf Urine RBC (Auto) (0-4) /hpf U Hyaline Cast (Auto) (0-5) /lpf U Epithel Cells (Auto) (0-5) /lpf Urine Bacteria (Auto) (Negative) Urine Crystals (None Prsent) Calcium Oxalate Crystal (None Prsent) Salicylates (3.0-30) mg/dl Urine Opiates Screen (Neg) Ur Methadone, Qual (Neg) Acetaminophen (10-30) ug/ml Urine Barbiturates (Neg) Ur Phencyclidine (PCP) (Neg) U Amphetamin/Meth Scrn (Neg) MDMA (Ecstasy) Screen (Neg) U Benzodiazepines Scrn (Neg) Constantine (0.6-1.2) mmol/L Ur Cocaine Metabolite (Neg) U Marijuana (THC) Screen (Neg) Ethyl Alcohol mg/dL < 10.0 (<10.0) mg/dl Imaging Data Radiologist's Impression: Head CT 04/14/22 16:08 CT OF THE HEAD WITHOUT CONTRAST CLINICAL HISTORY: Altered mental status. COMPARISON STUDY: No previous studies for comparison. CT DOSE: 614.27 mGy.cm TECHNIQUE: Helical axial images of the head were obtained without IV contrast. Automated exposure control was utilized for the study. A dose lowering technique was utilized adhering to the principles of ALARA. FINDINGS: No acute intracranial hemorrhage, midline shift or mass effect is present. The ventricular system is unremarkable. The basal cisterns are patent. No extra-axial collections are present. There are no findings to suggest acute dural sinus thrombosis or acute territorial infarct. No significant calvarial a bnormalities are present. Visualized portions of the sinuses and mastoid air cells are clear. IMPRESSION: No acute intracranial findings. ACT 112: Negative or not required by law. Electronically signed by: Brennon Bay M.D. 04/14/2022 4:47 PM [facility] Narrative Observation note Indication: Psych eval/placement Patient, with bipolar I was first seen at 1534 hrs and the observation time began at 1755 hrs and was necessary in order to have psych evaluation completed . Upon re-evaluation, [] hours of observation revealed that the patient should be []. Disposition date and time []. Impression & Plan Bipolar disorder Discharge Plan Visit Data Chief Complaint: Referred by Doctor Stated Complaint: REF BY , BLOOD TEST ED Provider: Melo Newton Discharge Problem: Bipolar disorder Patient Disposition: Still a Patient Forms Stand Alone Forms: My [employer] Prescriptions Prescriptions: No Action levothyroxine [Synthroid] 50 mcg tablet 50 mcg PO DAILYBB 30 Days Qty: 90 1RF cholecalciferol (vitamin D3) [Vitamin D3] 50 mcg (2,000 unit) capsule 2,000 unit PO QAM Qty: 90 3RF lisinopril-hydrochlorothiazide 20-12.5 mg tablet 1 tab PO DAILY Qty: 90 3RF lithium carbonate 300 mg capsule 600 mg PO HS Qty: 1 0RF Rx Instructions: take with 150 mg tab = 750 mg lamotrigine 100 mg tablet 100 mg PO HS lithium carbonate 150 mg capsule 150 mg PO HS Rx Instructions: take with 600 mg = 750 mg Referrals Referrals: Jhonathan Castillo, DO [Primary Care Provider] -
--- NOTE | 2022-04-14 19:17 | Emergency Department Note ---
ED Visit Note Received this patient in signout. Awaiting voluntary inpatient placement. Being evaluated by 3 S. See prior note by Dr. Newton for full evaluation. Accepted to for inpatient care on .
[2022-04-14] MEDS ORDERED: ACETAMINOPHEN 325 MG TAB PO PRN (19:50)
[2022-04-14] MEDS ORDERED: MAGNESIUM HYDROXIDE SUSP 30 ML UDC PO PRN (19:50)
[2022-04-14] MEDS ORDERED: SODIUM CHLORIDE 0.65% NA SOLN 45 ML (OCEAN) PRN (19:50)
[2022-04-14] MEDS ORDERED: ALUMINUM/MAGNESIUM SUSP 30 ML UDC PO PRN (19:50)
[2022-04-14] MEDS ORDERED: hydrOXYzine HCl 25 MG TAB PO PRN ×2 (19:50)
[2022-04-14] MEDS ORDERED: BISMUTH SUBSALICYLATE LIQD 236 ML PO PRN (19:50)
[2022-04-14] MEDS ORDERED: TEMAZEPAM 15 MG CAPSULE PO PRN (20:30)
[2022-04-14] MEDS ORDERED: LITHIUM CARBONATE 300 MG TAB PO SCH (21:00)
[2022-04-14] MEDS: lamoTRIgine 100 MG TAB PO SCH (21:02)
[2022-04-14] MEDS ORDERED: FLUARIX QUADRIVALENT 0.5 ML SYR IM ONE (21:30)
[2022-04-14] MEDS: TEMAZEPAM 15 MG CAPSULE PO SCH (22:02)
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
[2022-04-15] MEDS: CHOLECALCIFEROL 1,000 UNITS 25 MCG TAB PO SCH (08:50)
[2022-04-15] MEDS: LEVOTHYROXINE SODIUM 50 MCG TABLET PO SCH (08:50)
[2022-04-15] MEDS: lamoTRIgine 100 MG TAB PO SCH ×2 (08:51→20:39)
[2022-04-15] MEDS: LISINOPRIL/HCTZ 20/12.5MG 1 TAB TAB PO SCH (08:51)
[2022-04-15] MEDS: OLANZapine 5 MG TABLET PO PRN (10:06)
--- NOTE | 2022-04-15 14:18 | Electrocardiogram Report ---
Test Reason : Blood Pressure : / mmHG Vent. Rate : 082 BPM Atrial Rate : 082 BPM P-R Int : 156 ms QRS Dur : 098 ms QT Int : 384 ms P-R-T Axes : 054 -01 010 degrees QTc Int : 448 ms Normal sinus rhythm Possible Left atrial enlargement Left ventricular hypertrophy Abnormal ECG When compared with ECG of 15-MAY-2020 01:09, Criteria for Inferior infarct are no longer Present Confirmed by Francesco York ([id number]) on 04/15/2022 2:18:09 PM Referred By: REFERRED SELF Confirmed By:Francesco York
[2022-04-15] MEDS: TEMAZEPAM 15 MG CAPSULE PO SCH (20:39)
[2022-04-16] MEDS: OLANZapine 5 MG TABLET PO PRN ×2 (03:16→11:03)
[2022-04-16] MEDS: lamoTRIgine 100 MG TAB PO SCH ×2 (08:43→21:47)
[2022-04-16] MEDS: LEVOTHYROXINE SODIUM 50 MCG TABLET PO SCH (08:43)
[2022-04-16] MEDS: LISINOPRIL/HCTZ 20/12.5MG 1 TAB TAB PO SCH (08:43)
[2022-04-16] MEDS: CHOLECALCIFEROL 1,000 UNITS 25 MCG TAB PO SCH (08:43)
[2022-04-16] MEDS ORDERED: TEMAZEPAM 15 MG CAPSULE PO PRN (11:56)
[2022-04-16] MEDS ORDERED: LORazepam 1 MG TAB PO PRN (11:57)
[2022-04-16] MEDS: LITHIUM CARBONATE 300 MG TAB PO SCH ×2 (12:44→21:47)
--- NOTE | 2022-04-16 14:18 | Psychiatric Progress Note ---
Date of Service April 16, 2022 Impression / Recommendations Impression Manuel is a 57 yo female with a well established diagnosis of bipolar disorder, last admission was frankly delusional, presents with signs of confusion and/or thought disorganization and poor sleep. Initial and repeat lithium levels (2nd for true trough) are high end therapeutic, but she certainly presents with some degree of toxicity given GI upset, confusion, etc. She does report taking medication for knee pain, although I don't see rx for an NSAID I wonder if she may be taking OTC which even if not making lithium toxic could contribute to a mild serotonin syndrome picture. Even with increase in wine c onsumption, I feel her son's report is reliable so she is low risk for any withdrawal syndrome though later he did state she was purchasing liquor but had thrown it away. MNPR due to disorganized behavior and poor sleep. 04/16/22: remains disorganized with poor sleep (1) Bipolar disorder: Plan 04/16/22: resume [place] at 300 mg BID as no further evidence of toxicity and no further emesis. Will offer Zyprexa 5 mg BID scheduled and add additional prn Restoril. 04/15/22: The patient was admitted to the [facility] ([facility] unit) on q15 min checks (behavioral with suicide precautions) for safety. The patient will participate in group, recreational, and milieu therapies and will be offered additional individual and family sessions as clinically appropriate. Will hold lithium to see if MSE improves as trends down. Zyprexa prn. 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 Chief Complaint "I need to see my children's faces" Review of Systems Sleep Information Total Hours of Sleep: 3.25 Meal Information Percent Meal Consumed - Breakfast: 60 Percent Meal Consumed - Lunch: 100 Percent Meal Consumed - Dinner: 80 Subjective Subjective Patient was seen & assessed and interval progress reviewed with nursing and social work. Has had some benefit from prn Zyprexa doses, thought blocked a few hours after. Has been speaking in Pashto at times due to difficulty communicating in Bulgarian when her thoughts are disorganized. She declined an interpretor this am. She interrupts others. She called out in hallway and admitted to hearing voices not long after going to bed. Physical Exam Psychiatric Orientation: alert Apperance: appropriately dressed and appropriately groomed Eye Contact: + fair eye contact Motor Behavior: no abnormal motor movements Speech: normal rate/rhythm/volume of speech Affect: + depressed affect and + tearful affect Mood: + depressed mood Thought Process: + thought blocking, + tangential thought process and + concrete thought process Thought Content: + paranoid Suicidal Thoughts: denies suicidal thoughts Homicidal Thoughts: denies homicidal thoughts Hallucinations: no auditory hallucinations and no visual hallucinations Cognition: language grossly intact; + attention not intact Estimated Intelligence: consistent with education level Insight: + limited insight Judgement: + limited judgement Vital Signs (Past 24 Hours) Last Vital Signs Temp 36.4 C L 04/16/22 06:29 Pulse 73 04/16/22 06:30 Resp 18 04/16/22 06:29 BP 125/87 04/16/22 06:30 Pulse Ox 95 04/14/22 20:57 O2 Del Method 04/14/22 19:39 Results & Data ([facility]) Current Inpatient Medications Current Inpatient Medications: Current Inpatient Medications Acetaminophen (Acetaminophen 325 Mg Tab) 650 mg PO Q4H PRN PRN Reason: Headache or Minor Fever Stop: 05/14/22 19:49 Last Admin: 04/15/22 16:52 Dose: 650 mg Al Hydrox/Mg Hydrox/Simethicone (Aluminum/Magnesium Susp 30 Ml Udc) 30 ml PO Q4H PRN PRN Reason: GI Upset Stop: 05/14/22 19:49 Bismuth Subsalicylate (Bismuth Subsalicylate Liqd 236 Ml) 15 ml PO PRN PRN PRN Reason: Loose Stool Stop: 05/14/22 19:49 Lisinopril/HCTZ (Lisinopril/Hctz 20/12.5mg 1 Tab Tab) 1 tab PO DAILY GLORIA Stop: 05/15/22 08:59 Last Admin: 04/16/22 08:43 Dose: 1 tab Lamotrigine (Lamotrigine 100 Mg Tab) 100 mg PO BID GLORIA Stop: 05/14/22 20:59 Last Admin: 04/16/22 08:43 Dose: 100 mg Levothyroxine Sodium (Levothyroxine Sodium 50 Mcg Tablet) 50 mcg PO DAILYBB GLORIA Stop: 05/15/22 07:59 Last Admin: 04/16/22 08:43 Dose: 50 mcg [place] Carbonate ([place] Carbonate 300 Mg Tab) 300 mg PO BID GLORIA Stop: 05/16/22 11:54 Last Admin: 04/16/22 12:44 Dose: 300 mg Lorazepam (Lorazepam 1 Mg Tab) 1 mg PO BID GLORIA Stop: 05/16/22 20:59 Lorazepam (Lorazepam 1 Mg Tab) 1 mg PO Q6 PRN PRN Reason: Anxiety Stop: 05/16/22 11:56 Magnesium Hydroxide (Magnesium Hydroxide Susp 30 Ml Udc) 30 ml PO DAILY PRN PRN Reason: Constipation Stop: 05/14/22 19:49 Olanzapine (Olanzapine 5 Mg Tablet) 5 mg PO Q6H PRN PRN Reason: Anxiety/Agitation Stop: 05/14/22 20:31 Last Admin: 04/16/22 11:03 Dose: 5 mg Olanzapine (Olanzapine 5 Mg Tablet) 5 mg PO BID [facility] Stop: 05/16/22 20:59 Sodium Chloride (Sodium Chloride 0.65% Na Soln 45 Ml ([place])) 1 - 2 sprays NA PRN PRN PRN Reason: Nasal Dryness/Congestion Stop: 05/14/22 19:49 Temazepam (Temazepam 15 Mg Capsule) 15 mg PO HSZ GLORIA Stop: 05/14/22 21:59 Last Admin: 04/15/22 20:39 Dose: 15 mg Temazepam (Temazepam 15 Mg Capsule) 15 mg PO HSZ PRN PRN Reason: Insomnia Stop: 05/16/22 11:55 Vitamin D (Cholecalciferol 1,000 Units 25 Mcg Tab) 2,000 units PO QAM GLORIA Stop: 05/15/22 08:59 Last Admin: 04/16/22 08:43 Dose: 2,000 units Mental Health & Subst Abuse Tx Therapist Name of Therapist: None Journalism Teacher Name of Journalism Teacher: None Post Discharge Appointments Primary Care Physician Name Of Family Doctor: Dr Castillo
[2022-04-16 16:00] LABS: 7-Aminoclonaz, Confirm NEGATIVE ng/mL (<25); Hydro-Alp Ur, GC/MS NEGATIVE ng/mL (<25); Hydroxyethylflurazepam, Conf NEGATIVE ng/mL (<50); Hydroxymidazolam Ur, GC/MS NEGATIVE ng/mL (<50); Hydroxytriazolam NEGATIVE ng/mL (<50); Lorazepam, Ur GC/MS NEGATIVE ng/mL (<50); Nordiazepam, Confirm NEGATIVE ng/mL (<50); Oxazepam Ur, GC/MS >2000 ng/mL (<50); Temazepam, Confirm >2000 ng/mL (<50)
[2022-04-16] MEDS: LORazepam 1 MG TAB PO SCH (21:47)
[2022-04-16] MEDS: OLANZapine 5 MG TABLET PO SCH (21:47)
[2022-04-16] MEDS: TEMAZEPAM 15 MG CAPSULE PO SCH (21:49)
[2022-04-17] MEDS: CHOLECALCIFEROL 1,000 UNITS 25 MCG TAB PO SCH (08:13)
[2022-04-17] MEDS: OLANZapine 5 MG TABLET PO SCH ×2 (08:13→22:02)
[2022-04-17] MEDS: LISINOPRIL/HCTZ 20/12.5MG 1 TAB TAB PO SCH (08:13)
[2022-04-17] MEDS: lamoTRIgine 100 MG TAB PO SCH ×2 (08:13→22:02)
[2022-04-17] MEDS: LITHIUM CARBONATE 300 MG TAB PO SCH ×2 (08:14→22:02)
[2022-04-17] MEDS: LEVOTHYROXINE SODIUM 50 MCG TABLET PO SCH (08:14)
[2022-04-17] MEDS: LORazepam 1 MG TAB PO SCH ×2 (08:16→22:04)
--- NOTE | 2022-04-17 15:20 | Psychiatric Progress Note ---
Date of Service April 17, 2022 Impression / Recommendations Impression Manuel is a 57 yo female with a well established diagnosis of bipolar disorder, last admission was frankly delusional, presented with signs of confusion and/or thought disorganization and poor sleep. Initial and repeat lithium levels (2nd for true trough) are high end therapeutic, but she initially presented with concerns for toxicity given GI upset, confusion, etc. She does report taking medication for knee pain, although I don't see rx for an NSAID I wonder if she may be taking OTC which even if not making lithium toxic could contribute to a mild serotonin syndrome picture. Alcohol use increased prior to admission but no evidence of withdrawal. MNPR due to disorganized behavior and poor sleep. 04/17/22: minimal improvement (1) Bipolar disorder: Plan 04/17/22: continue current meds and tx plan, I do not plan to add back her additional 150 mg of lithium daily at this time. Zyprexa standing doses can likely be shifted to hs soon. 04/16/22: resume [place] at 300 mg BID as no further evidence of toxicity and no further emesis. Will offer Zyprexa 5 mg BID scheduled and add additional prn Restoril. 04/15/22: The patient was admitted to the [facility] ([facility] inpatient mental health unit) on q15 min checks (behavioral with suicide precautions) for safety. The patient will participate in group, recreational, and milieu therapies and will be offered additional individual and family sessions as clinically appropriate. Will hold lithium to see if MSE improves as trends down. Zyprexa prn. 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) Supportive Family: Yes Interval History Identifying Information MANUEL VIGIL is a 57-year-old F who currently lives in [place], has a history of bipolar disorder and was admitted to on 07/02/21, now admitted on 04/14/22 19:50 on a 201 voluntary commitment for early signs of traci. Chief Complaint "Do I know you?" Review of Systems Sleep Information Total Hours of Sleep: 6 Meal Information Percent Meal Consumed - Breakfast: 75 Percent Meal Consumed - Lunch: 100 Percent Meal Consumed - Dinner: 50 Subjective Subjective Patient was seen & assessed and interval progress reviewed with treatment team. Patient slept better overnight, tired this am in bed rather than group but generally thought blocked in interactions and paranoid to staff due to disorganization as not liking masks blocking faces and checking tags. Physical Exam Psychiatric Orientation: alert Apperance: appropriately groomed Eye Contact: + fair eye contact Motor Behavior: no abnormal motor movements Speech: normal rate/rhythm/volume of speech Affect: + depressed affect Mood: + depressed mood Thought Process: + thought blocking and + tangential thought process Thought Content: + paranoid Suicidal Thoughts: denies suicidal thoughts Homicidal Thoughts: denies homicidal thoughts Hallucinations: no auditory hallucinations and no visual hallucinations Cognition: + attention not intact Vital Signs (Past 24 Hours) Last Vital Signs Temp 36.3 C L 04/17/22 06:18 Pulse 69 04/17/22 06:34 Resp 16 04/17/22 06:18 BP 135/85 04/17/22 06:34 Pulse Ox 95 04/14/22 20:57 O2 Del Method 04/14/22 19:39 Results & Data ([facility]) Laboratory Results Laboratory Results - last 24 hr 04/14/22 15:43 U OH-Alprazolam Confrm NEGATIVE 7-Amino Clonazepam NEGATIVE Ur Nordiazepam Confirm NEGATIVE U OH-ethylflurazepam NEGATIVE U Lorazepam Cnf GC/MS NEGATIVE U Oxazepam Confm GC/MS >2000 H Ur Temazepam Confirm >2000 H U OH-Triazolam Confirm NEGATIVE U OH-Midazolam Confirm NEGATIVE Drug Screen Comment SEE NOTE Current Inpatient Medications Current Inpatient Medications: Current Inpatient Medications Acetaminophen (Acetaminophen 325 Mg Tab) 650 mg PO Q4H PRN PRN Reason: Headache or Minor Fever Stop: 05/14/22 19:49 Last Admin: 04/15/22 16:52 Dose: 650 mg Al Hydrox/Mg Hydrox/Simethicone (Aluminum/Magnesium Susp 30 Ml Udc) 30 ml PO Q4H PRN PRN Reason: GI Upset Stop: 05/14/22 19:49 Bismuth Subsalicylate (Bismuth Subsalicylate Liqd 236 Ml) 15 ml PO PRN PRN PRN Reason: Loose Stool Stop: 05/14/22 19:49 Lisinopril/HCTZ (Lisinopril/Hctz 20/12.5mg 1 Tab Tab) 1 tab PO DAILY GLORIA Stop: 05/15/22 08:59 Last Admin: 04/17/22 08:13 Dose: 1 tab Lamotrigine (Lamotrigine 100 Mg Tab) 100 mg PO BID GLORIA Stop: 05/14/22 20:59 Last Admin: 04/17/22 08:13 Dose: 100 mg Levothyroxine Sodium (Levothyroxine Sodium 50 Mcg Tablet) 50 mcg PO DAILYBB GLORIA Stop: 05/15/22 07:59 Last Admin: 04/17/22 08:14 Dose: 50 mcg [place] Carbonate ([place] Carbonate 300 Mg Tab) 300 mg PO BID GLORIA Stop: 05/16/22 11:54 Last Admin: 04/17/22 08:14 Dose: 300 mg Lorazepam (Lorazepam 1 Mg Tab) 1 mg PO BID GLORIA Stop: 05/16/22 20:59 Last Admin: 04/17/22 08:16 Dose: 1 mg Lorazepam (Lorazepam 1 Mg Tab) 1 mg PO Q6 PRN PRN Reason: Anxiety Stop: 05/16/22 11:56 Magnesium Hydroxide (Magnesium Hydroxide Susp 30 Ml Udc) 30 ml PO DAILY PRN PRN Reason: Constipation Stop: 05/14/22 19:49 Olanzapine (Olanzapine 5 Mg Tablet) 5 mg PO Q6H PRN PRN Reason: Anxiety/Agitation Stop: 05/14/22 20:31 Last Admin: 04/16/22 11:03 Dose: 5 mg Olanzapine (Olanzapine 5 Mg Tablet) 5 mg PO BID GLORIA Stop: 05/16/22 20:59 Last Admin: 04/17/22 08:13 Dose: 5 mg Sodium Chloride (Sodium Chloride 0.65% Na Soln 45 Ml ([place])) 1 - 2 sprays NA PRN PRN PRN Reason: Nasal Dryness/Congestion Stop: 05/14/22 19:49 Temazepam (Temazepam 15 Mg Capsule) 15 mg PO HSZ GLORIA Stop: 05/14/22 21:59 Last Admin: 04/16/22 21:49 Dose: 15 mg Temazepam (Temazepam 15 Mg Capsule) 15 mg PO HSZ PRN PRN Reason: Insomnia Stop: 05/16/22 11:55 Vitamin D (Cholecalciferol 1,000 Units 25 Mcg Tab) 2,000 units PO QAM GLORIA Stop: 05/15/22 08:59 Last Admin: 04/17/22 08:13 Dose: 2,000 units Mental Health & Subst Abuse Tx Therapist Name of Therapist: None Student Development Advisor Name of Student Development Advisor: None Post Discharge Appointments Primary Care Physician Name Of Family Doctor: Dr Castillo
[2022-04-17] MEDS: TEMAZEPAM 15 MG CAPSULE PO SCH (22:04)
[2022-04-18] MEDS: lamoTRIgine 100 MG TAB PO SCH ×2 (08:05→20:34)
[2022-04-18] MEDS: LISINOPRIL/HCTZ 20/12.5MG 1 TAB TAB PO SCH (08:05)
[2022-04-18] MEDS: LORazepam 1 MG TAB PO SCH ×2 (08:05→20:33)
[2022-04-18] MEDS: CHOLECALCIFEROL 1,000 UNITS 25 MCG TAB PO SCH (08:05)
[2022-04-18] MEDS: LEVOTHYROXINE SODIUM 50 MCG TABLET PO SCH (08:05)
[2022-04-18] MEDS: LITHIUM CARBONATE 300 MG TAB PO SCH ×2 (08:05→20:33)
[2022-04-18] MEDS: OLANZapine 5 MG TABLET PO SCH ×2 (08:06→20:34)
--- NOTE | 2022-04-18 09:25 | Psychiatric Progress Note ---
Date of Service April 18, 2022 Impression / Recommendations Impression Manuel is a 57 yo female with a well established diagnosis of bipolar disorder, last admission was frankly delusional, presented with signs of confusion and/or thought disorganization and poor sleep. Initial and repeat lithium levels (2nd for true trough) are high end therapeutic, but she initially presented with concerns for toxicity given GI upset, confusion, etc. She does report taking medication for knee pain, although I don't see rx for an NSAID I wonder if she may be taking OTC which even if not making lithium toxic could contribute to a mild serotonin syndrome picture. Alcohol use increased prior to admission but no evidence of withdrawal. MNPR due to disorganized behavior and poor sleep. 04/18/22: Reviewed interim progress per Dr. Betancourt. Remains easily overwhelmed and confused but able to tolerate an afternoon group for a brief period of time. Tolerating medications without side effects. Therapeutic Li level. (1) Bipolar disorder: Plan 04/18/22: Continue current medications and tx plan. 04/17/22: continue current meds and tx plan, I do not plan to add back her additional 150 mg of lithium daily at this time. Zyprexa standing doses can likely be shifted to hs soon. 04/16/22: resume [place] at 300 mg BID as no further evidence of toxicity and no further emesis. Will offer Zyprexa 5 mg BID scheduled and add additional prn Restoril. 04/15/22: The patient was admitted to the [facility] ([facility] mental health unit) on q15 min checks (behavioral with suicide precautions) for safety. The patient will participate in group, recreational, and milieu therapies and will be offered additional individual and family sessions as clinically appropriate. Will hold lithium to see if MSE improves as trends down. Zyprexa prn. 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 Chief Complaint "I need to see your eyes". Review of Systems Sleep Information Total Hours of Sleep: 8 Meal Information Percent Meal Consumed - Breakfast: 75 Percent Meal Consumed - Lunch: 100 Percent Meal Consumed - Dinner: 100 Subjective Subjective Patient was seen & assessed and interval progress reviewed with treatment team nursing and social work. Still confused yesterday evening, isolative. Was able to talk to her family last evening on the phone. Was confused yesterday in not recalling meeting one of the social workers. Cannot tolerate groups. Today remains confused about her recent and current medications but able to tolerate discuss about this. She notes she has become confused when taking antipsychotics in the past including risperidone and Geodon. She cannot tell me if she was taking zyprexa prior to admission but denies any current side effects to this. Some inattention to personal boundaries. Physical Exam Psychiatric Orientation: alert and oriented x 3 Apperance: appropriately dressed and appropriately groomed Eye Contact: good eye contact (intense) Motor Behavior: no abnormal motor movements Speech: normal rate/rhythm/volume of speech Affect: + constricted affect Mood: + depressed mood and + anxious mood Thought Process: + thought blocking, + circumstantial thought process and + concrete thought process Thought Content: reality based without delusions Suicidal Thoughts: denies suicidal thoughts Homicidal Thoughts: denies homicidal thoughts Hallucinations: no auditory hallucinations and no visual hallucinations Cognition: remote memory grossly intact and language grossly intact; + recent memory not intact and + attention not intact Estimated Intelligence: consistent with education level Insight: + limited insight Judgement: + limited judgement Vital Signs (Past 24 Hours) Last Vital Signs Temp 36.7 C 04/18/22 06:00 Pulse 79 04/18/22 06:30 Resp 18 04/18/22 06:00 BP 124/90 04/18/22 06:30 Pulse Ox 95 04/14/22 20:57 O2 Del Method 04/14/22 19:39 Results & Data ([facility]) Current Inpatient Medications Current Inpatient Medications: Current Inpatient Medications Acetaminophen (Acetaminophen 325 Mg Tab) 650 mg PO Q4H PRN PRN Reason: Headache or Minor Fever Stop: 05/14/22 19:49 Last Admin: 04/15/22 16:52 Dose: 650 mg Al Hydrox/Mg Hydrox/Simethicone (Aluminum/Magnesium Susp 30 Ml Udc) 30 ml PO Q4H PRN PRN Reason: GI Upset Stop: 05/14/22 19:49 Bismuth Subsalicylate (Bismuth Subsalicylate Liqd 236 Ml) 15 ml PO PRN PRN PRN Reason: Loose Stool Stop: 05/14/22 19:49 Lisinopril/HCTZ (Lisinopril/Hctz 20/12.5mg 1 Tab Tab) 1 tab PO DAILY GLORIA Stop: 05/15/22 08:59 Last Admin: 04/18/22 08:05 Dose: 1 tab Lamotrigine (Lamotrigine 100 Mg Tab) 100 mg PO BID GLORIA Stop: 05/14/22 20:59 Last Admin: 04/18/22 08:05 Dose: 100 mg Levothyroxine Sodium (Levothyroxine Sodium 50 Mcg Tablet) 50 mcg PO DAILYBB [facility] Stop: 05/15/22 07:59 Last Admin: 04/18/22 08:05 Dose: 50 mcg [place] Carbonate ([place] Carbonate 300 Mg Tab) 300 mg PO BID GLORIA Stop: 05/16/22 11:54 Last Admin: 04/18/22 08:05 Dose: 300 mg Lorazepam (Lorazepam 1 Mg Tab) 1 mg PO BID [facility] Stop: 05/16/22 20:59 Last Admin: 04/18/22 08:05 Dose: 1 mg Lorazepam (Lorazepam 1 Mg Tab) 1 mg PO Q6 PRN PRN Reason: Anxiety Stop: 05/16/22 11:56 Magnesium Hydroxide (Magnesium Hydroxide Susp 30 Ml Udc) 30 ml PO DAILY PRN PRN Reason: Constipation Stop: 05/14/22 19:49 Olanzapine (Olanzapine 5 Mg Tablet) 5 mg PO Q6H PRN PRN Reason: Anxiety/Agitation Stop: 05/14/22 20:31 Last Admin: 04/16/22 11:03 Dose: 5 mg Olanzapine (Olanzapine 5 Mg Tablet) 5 mg PO BID GLORIA Stop: 05/16/22 20:59 Last Admin: 04/18/22 08:06 Dose: 5 mg Sodium Chloride (Sodium Chloride 0.65% Na Soln 45 Ml ([place])) 1 - 2 sprays NA PRN PRN PRN Reason: Nasal Dryness/Congestion Stop: 05/14/22 19:49 Temazepam (Temazepam 15 Mg Capsule) 15 mg PO HSZ GLORIA Stop: 05/14/22 21:59 Last Admin: 04/17/22 22:04 Dose: 15 mg Temazepam (Temazepam 15 Mg Capsule) 15 mg PO HSZ PRN PRN Reason: Insomnia Stop: 05/16/22 11:55 Vitamin D (Cholecalciferol 1,000 Units 25 Mcg Tab) 2,000 units PO QAM GLORIA Stop: 05/15/22 08:59 Last Admin: 04/18/22 08:05 Dose: 2,000 units Mental Health & Subst Abuse Tx Therapist Name of Therapist: None Microfilm Operator Name of Microfilm Operator: None Post Discharge Appointments Primary Care Physician Name Of Family Doctor: Dr Castillo
[2022-04-18] MEDS: TEMAZEPAM 15 MG CAPSULE PO SCH (20:34)
[2022-04-19] MEDS: lamoTRIgine 100 MG TAB PO SCH ×2 (08:12→20:58)
[2022-04-19] MEDS: LISINOPRIL/HCTZ 20/12.5MG 1 TAB TAB PO SCH (08:12)
[2022-04-19] MEDS: OLANZapine 5 MG TABLET PO SCH (08:12)
[2022-04-19] MEDS: LEVOTHYROXINE SODIUM 50 MCG TABLET PO SCH (08:12)
[2022-04-19] MEDS: LITHIUM CARBONATE 300 MG TAB PO SCH ×2 (08:12→20:58)
[2022-04-19] MEDS: CHOLECALCIFEROL 1,000 UNITS 25 MCG TAB PO SCH (08:12)
[2022-04-19] MEDS: LORazepam 1 MG TAB PO SCH (08:14)
--- NOTE | 2022-04-19 09:11 | Psychiatric Progress Note ---
Date of Service April 19, 2022 Impression / Recommendations Impression Manuel is a 57 yo female with a well established diagnosis of bipolar disorder, last admission was frankly delusional, presented with signs of confusion and/or thought disorganization and poor sleep. Initial and repeat lithium levels (2nd for true trough) are high end therapeutic, but she initially presented with concerns for toxicity given GI upset, confusion, etc. She does report taking medication for knee pain, although I don't see rx for an NSAID I wonder if she may be taking OTC which even if not making lithium toxic could contribute to a mild serotonin syndrome picture. Alcohol use increased prior to admission but no evidence of withdrawal. MNPR due to disorganized behavior and poor sleep. 04/19/22: Remains disorganized with perseveration about medications. Given daytime fatigue will consolidate olanzapine to qhs, no qAM dose tomorrow. (1) Bipolar disorder: Plan 04/19/22: Consolidate olanzapine to 10mg qhs starting tomorrow. Switch ativan to 1mg qAM prn and scheduled 1mg at qhs. 04/18/22: Continue current medications and tx plan. 04/17/22: continue current meds and tx plan, I do not plan to add back her additional 150 mg of lithium daily at this time. Zyprexa standing doses can likely be shifted to hs soon. 04/16/22: resume [place] at 300 mg BID as no further evidence of toxicity and no further emesis. Will offer Zyprexa 5 mg BID scheduled and add additional prn Restoril. 04/15/22: The patient was admitted to the [facility] ([facility] inpatient mental health unit) on q15 min checks (behavioral with suicide precautions) for safety. The patient will participate in group, recreational, and milieu therapies and will be offered additional individual and family sessions as clinically appropriate. Will hold lithium to see if MSE improves as trends down. Zyprexa prn. 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 Chief Complaint "I'm very sleepy today". Review of Systems Sleep Information Total Hours of Sleep: 8 Meal Information Percent Meal Consumed - Breakfast: 75 Percent Meal Consumed - Lunch: 100 Percent Meal Consumed - Dinner: 100 Subjective Subjective Patient was seen & assessed and interval progress reviewed with treatment team nursing and social work. Went to evening group last night. Last night confused and asked three different staff for a pair of contacts and ended up changing the contacts three times in a 4 hour period. Remains ruminative and confused about cancelled thyroid scan and medications. feels tired today, reviewed option to consolidate olanzapine at qhs which she would like to do. Remains ruminative about her medications, timing of them and needing a lot of reassurance about this. Physical Exam Psychiatric Orientation: alert and oriented x 3 Apperance: appropriately dressed and appropriately groomed Eye Contact: good eye contact Motor Behavior: no abnormal motor movements Speech: normal rate/rhythm/volume of speech Affect: + anxious affect Mood: + depressed mood and + anxious mood Thought Process: + perseveration Thought Content: reality based without delusions Suicidal Thoughts: denies suicidal thoughts Homicidal Thoughts: denies homicidal thoughts Hallucinations: no auditory hallucinations and no visual hallucinations Cognition: remote memory grossly intact and language grossly intact; + recent memory not intact and + attention not intact Estimated Intelligence: consistent with education level Insight: + limited insight Judgement: + limited judgement Vital Signs (Past 24 Hours) Last Vital Signs Temp 36.6 C 04/19/22 06:00 Pulse 78 04/19/22 06:35 Resp 18 04/19/22 06:00 BP 128/90 04/19/22 06:35 Pulse Ox 95 04/14/22 20:57 O2 Del Method 04/14/22 19:39 Results & Data ([facility]) Current Inpatient Medications Current Inpatient Medications: Current Inpatient Medications Acetaminophen (Acetaminophen 325 Mg Tab) 650 mg PO Q4H PRN PRN Reason: Headache or Minor Fever Stop: 05/14/22 19:49 Last Admin: 04/15/22 16:52 Dose: 650 mg Al Hydrox/Mg Hydrox/Simethicone (Aluminum/Magnesium Susp 30 Ml Udc) 30 ml PO Q4H PRN PRN Reason: GI Upset Stop: 05/14/22 19:49 Bismuth Subsalicylate (Bismuth Subsalicylate Liqd 236 Ml) 15 ml PO PRN PRN PRN Reason: Loose Stool Stop: 05/14/22 19:49 Lisinopril/HCTZ (Lisinopril/Hctz 20/12.5mg 1 Tab Tab) 1 tab PO DAILY GLORIA Stop: 05/15/22 08:59 Last Admin: 04/19/22 08:12 Dose: 1 tab Lamotrigine (Lamotrigine 100 Mg Tab) 100 mg PO BID GLORIA Stop: 05/14/22 20:59 Last Admin: 04/19/22 08:12 Dose: 100 mg Levothyroxine Sodium (Levothyroxine Sodium 50 Mcg Tablet) 50 mcg PO DAILYBB GLORIA Stop: 05/15/22 07:59 Last Admin: 04/19/22 08:12 Dose: 50 mcg [place] Carbonate ([place] Carbonate 300 Mg Tab) 300 mg PO BID GLORIA Stop: 05/16/22 11:54 Last Admin: 04/19/22 08:12 Dose: 300 mg Lorazepam (Lorazepam 1 Mg Tab) 1 mg PO BID GLORIA Stop: 05/16/22 20:59 Last Admin: 04/19/22 08:14 Dose: 1 mg Lorazepam (Lorazepam 1 Mg Tab) 1 mg PO Q6 PRN PRN Reason: Anxiety Stop: 05/16/22 11:56 Magnesium Hydroxide (Magnesium Hydroxide Susp 30 Ml Udc) 30 ml PO DAILY PRN PRN Reason: Constipation Stop: 05/14/22 19:49 Olanzapine (Olanzapine 5 Mg Tablet) 5 mg PO Q6H PRN PRN Reason: Anxiety/Agitation Stop: 05/14/22 20:31 Last Admin: 04/16/22 11:03 Dose: 5 mg Olanzapine (Olanzapine 5 Mg Tablet) 5 mg PO BID GLORIA Stop: 05/16/22 20:59 Last Admin: 04/19/22 08:12 Dose: 5 mg Sodium Chloride (Sodium Chloride 0.65% Na Soln 45 Ml ([place])) 1 - 2 sprays NA PRN PRN PRN Reason: Nasal Dryness/Congestion Stop: 05/14/22 19:49 Temazepam (Temazepam 15 Mg Capsule) 15 mg PO HSZ GLORIA Stop: 05/14/22 21:59 Last Admin: 04/18/22 20:34 Dose: 15 mg Temazepam (Temazepam 15 Mg Capsule) 15 mg PO HSZ PRN PRN Reason: Insomnia Stop: 05/16/22 11:55 Vitamin D (Cholecalciferol 1,000 Units 25 Mcg Tab) 2,000 units PO QAM GLORIA Stop: 05/15/22 08:59 Last Admin: 04/19/22 08:12 Dose: 2,000 units Mental Health & Subst Abuse Tx Therapist Name of Therapist: None Safety Inspector Name of Safety Inspector: None Post Discharge Appointments Primary Care Physician Name Of Family Doctor: Dr Castillo
[2022-04-19] MEDS ORDERED: LORazepam 1 MG TAB PO PRN (17:43)
[2022-04-19] MEDS: TEMAZEPAM 15 MG CAPSULE PO SCH (20:59)
[2022-04-19] MEDS ORDERED: LORazepam 1 MG TAB PO SCH (22:00)
[2022-04-19] MEDS ORDERED: OLANZapine 5 MG TABLET PO SCH (22:00)
[2022-04-20] MEDS: LEVOTHYROXINE SODIUM 50 MCG TABLET PO SCH (08:24)
[2022-04-20] MEDS: CHOLECALCIFEROL 1,000 UNITS 25 MCG TAB PO SCH (08:24)
[2022-04-20] MEDS: lamoTRIgine 100 MG TAB PO SCH ×2 (08:25→21:47)
[2022-04-20] MEDS: LITHIUM CARBONATE 300 MG TAB PO SCH ×2 (08:25→21:47)
[2022-04-20] MEDS: LISINOPRIL/HCTZ 20/12.5MG 1 TAB TAB PO SCH (08:25)
[2022-04-20] MEDS ORDERED: LORazepam 1 MG TAB PO PRN (14:15)
--- NOTE | 2022-04-20 16:48 | Psychiatric Progress Note ---
Date of Service April 20, 2022 Impression / Recommendations Impression Manuel is a 57 yo female with a well established diagnosis of bipolar disorder, last admission was frankly delusional, presented with signs of confusion and/or thought disorganization and poor sleep. Initial and repeat lithium levels (2nd for true trough) are high end therapeutic, but she initially presented with concerns for toxicity given GI upset, confusion, etc. She does report taking medication for knee pain, although I don't see rx for an NSAID I wonder if she may be taking OTC which even if not making lithium toxic could contribute to a mild serotonin syndrome picture. Alcohol use increased prior to admission but no evidence of withdrawal. MNPR due to disorganized behavior and poor sleep. 04/20/22: Remains disorganized with perseveration about medications and physical concerns but sleeping better, less fatigue today with consolidation of olanzapine. Given restoril at qhs will make qhs ativan prn. (1) Bipolar disorder: Plan 04/20/22: Switch ativan to 1mg BID prn. 04/19/22: Consolidate olanzapine to 10mg qhs starting tomorrow. Switch ativan to 1mg qAM prn and scheduled 1mg at qhs. 04/18/22: Continue current medications and tx plan. 04/17/22: continue current meds and tx plan, I do not plan to add back her additional 150 mg of lithium daily at this time. Zyprexa standing doses can likely be shifted to hs soon. 04/16/22: resume [place] at 300 mg BID as no further evidence of toxicity and no further emesis. Will offer Zyprexa 5 mg BID scheduled and add additional prn Restoril. 04/15/22: The patient was admitted to the [facility] ([facility] mental health unit) on q15 min checks (behavioral with suicide precautions) for safety. The patient will participate in group, recreational, and milieu therapies and will be offered additional individual and family sessions as clinically appropriate. Will hold lithium to see if MSE improves as trends down. Zyprexa prn. 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 Chief Complaint "See this rash on my nose?". Review of Systems Sleep Information Total Hours of Sleep: 7 Meal Information Percent Meal Consumed - Breakfast: 100 Percent Meal Consumed - Lunch: 100 Percent Meal Consumed - Dinner: 40 Subjective Subjective Patient was seen & assessed and interval progress reviewed with treatment team nursing and social work. Remains isolative to her room, slept much of the day yesterday. Today reports a decrease in fatigue but notes she likes to be in her room to "meditate" throughout the day. Remains focused on timing of medication and somatic concerns. Today concerned about rash on her nose. Her nose was examined and no visible redness, rash, changes to skin appreciated but offered option for topical antihistamine cream which she'd like to try. Physical Exam Psychiatric Orientation: alert and oriented x 3 Apperance: appropriately dressed and appropriately groomed Eye Contact: good eye contact Motor Behavior: no abnormal motor movements Speech: normal rate/rhythm/volume of speech Affect: + anxious affect Mood: + anxious mood Thought Process: + perseveration Thought Content: + paranoid Suicidal Thoughts: denies suicidal thoughts Homicidal Thoughts: denies homicidal thoughts Hallucinations: no auditory hallucinations and no visual hallucinations Cognition: remote memory grossly intact and language grossly intact; + recent memory not intact and + attention not intact Estimated Intelligence: consistent with education level Insight: + limited insight Judgement: + limited judgement Vital Signs (Past 24 Hours) Last Vital Signs Temp 36.5 C 04/20/22 06:42 Pulse 77 04/20/22 06:43 Resp 18 04/20/22 06:42 BP 137/93 04/20/22 06:43 Pulse Ox 95 04/14/22 20:57 O2 Del Method 04/14/22 19:39 Results & Data ([facility]) Current Inpatient Medications Current Inpatient Medications: Current Inpatient Medications Acetaminophen (Acetaminophen 325 Mg Tab) 650 mg PO Q4H PRN PRN Reason: Headache or Minor Fever Stop: 05/14/22 19:49 Last Admin: 04/15/22 16:52 Dose: 650 mg Al Hydrox/Mg Hydrox/Simethicone (Aluminum/Magnesium Susp 30 Ml Udc) 30 ml PO Q4H PRN PRN Reason: GI Upset Stop: 05/14/22 19:49 Bismuth Subsalicylate (Bismuth Subsalicylate Liqd 236 Ml) 15 ml PO PRN PRN PRN Reason: Loose Stool Stop: 05/14/22 19:49 Lisinopril/HCTZ (Lisinopril/Hctz 20/12.5mg 1 Tab Tab) 1 tab PO DAILY GLORIA Stop: 05/15/22 08:59 Last Admin: 04/20/22 08:25 Dose: 1 tab Lamotrigine (Lamotrigine 100 Mg Tab) 100 mg PO BID GLORIA Stop: 05/14/22 20:59 Last Admin: 04/20/22 08:25 Dose: 100 mg Levothyroxine Sodium (Levothyroxine Sodium 50 Mcg Tablet) 50 mcg PO DAILYBB GLORIA Stop: 05/15/22 07:59 Last Admin: 04/20/22 08:24 Dose: 50 mcg [place] Carbonate ([place] Carbonate 300 Mg Tab) 300 mg PO BID GLORIA Stop: 05/16/22 11:54 Last Admin: 04/20/22 08:25 Dose: 300 mg Lorazepam (Lorazepam 1 Mg Tab) 1 mg PO Q6 PRN PRN Reason: Anxiety Stop: 05/16/22 11:56 Lorazepam (Lorazepam 1 Mg Tab) 1 mg PO BID PRN PRN Reason: Anxiety/Agitation Stop: 05/19/22 17:42 Magnesium Hydroxide (Magnesium Hydroxide Susp 30 Ml Udc) 30 ml PO DAILY PRN PRN Reason: Constipation Stop: 05/14/22 19:49 Olanzapine (Olanzapine 5 Mg Tablet) 5 mg PO Q6H PRN PRN Reason: Anxiety/Agitation Stop: 05/14/22 20:31 Last Admin: 04/16/22 11:03 Dose: 5 mg Olanzapine (Olanzapine 10 Mg Tab) 10 mg PO HS GLORIA Stop: 05/20/22 21:59 Sodium Chloride (Sodium Chloride 0.65% Na Soln 45 Ml ([place])) 1 - 2 sprays NA PRN PRN PRN Reason: Nasal Dryness/Congestion Stop: 05/14/22 19:49 Temazepam (Temazepam 15 Mg Capsule) 15 mg PO HSZ GLORIA Stop: 05/14/22 21:59 Last Admin: 04/19/22 20:59 Dose: 15 mg Temazepam (Temazepam 15 Mg Capsule) 15 mg PO HSZ PRN PRN Reason: Insomnia Stop: 05/16/22 11:55 Vitamin D (Cholecalciferol 1,000 Units 25 Mcg Tab) 2,000 units PO QAM GLORIA Stop: 05/15/22 08:59 Last Admin: 04/20/22 08:24 Dose: 2,000 units Zinc Acetate/Diphenhydramine (Diphenhydramine 2%/Zinc 0.1% Cream 28gm Tube) 1 appln EXT HS PRN PRN Reason: Itching Stop: 05/20/22 14:14 Mental Health & Subst Abuse Tx Therapist Name of Therapist: None Supervisor Cutting Department Name of Supervisor Cutting Department: None Post Discharge Appointments Primary Care Physician Name Of Family Doctor: Dr Castillo
[2022-04-20] MEDS: OLANZapine 10 MG TAB PO SCH (21:47)
[2022-04-20] MEDS: TEMAZEPAM 15 MG CAPSULE PO SCH (21:50)
[2022-04-21] MEDS: LEVOTHYROXINE SODIUM 50 MCG TABLET PO SCH (08:41)
[2022-04-21] MEDS: CHOLECALCIFEROL 1,000 UNITS 25 MCG TAB PO SCH (08:41)
[2022-04-21] MEDS: lamoTRIgine 100 MG TAB PO SCH ×2 (08:41→20:40)
[2022-04-21] MEDS: LISINOPRIL/HCTZ 20/12.5MG 1 TAB TAB PO SCH (08:41)
[2022-04-21] MEDS: LITHIUM CARBONATE 300 MG TAB PO SCH ×2 (08:42→20:40)
--- NOTE | 2022-04-21 15:55 | Psychiatric Progress Note ---
Date of Service April 21, 2022 Impression / Recommendations Impression Manuel is a 57 yo female with a well established diagnosis of bipolar disorder, last admission was frankly delusional, presented with signs of confusion and/or thought disorganization and poor sleep. Initial and repeat lithium levels (2nd for true trough) are high end therapeutic, but she initially presented with concerns for toxicity given GI upset, confusion, etc. She does report taking medication for knee pain, although I don't see rx for an NSAID I wonder if she may be taking OTC which even if not making lithium toxic could contribute to a mild serotonin syndrome picture. Alcohol use increased prior to admission but no evidence of withdrawal. MNPR due to disorganized behavior and poor sleep. 04/21/22: Behavior is becoming more organized, able to tolerate multiple groups last night for the first time. Last night slept less than 6 hours. Goal of sleep improvement to provide for reassurance of trend toward improvement of acute traci. Tolerating medication changes. (1) Bipolar disorder: Plan 04/21/22: Continue current medications and tx plan. 04/20/22: Switch ativan to 1mg BID prn. 04/19/22: Consolidate olanzapine to 10mg qhs starting tomorrow. Switch ativan to 1mg qAM prn and scheduled 1mg at qhs. 04/18/22: Continue current medications and tx plan. 04/17/22: continue current meds and tx plan, I do not plan to add back her add itional 150 mg of lithium daily at this time. Zyprexa standing doses can likely be shifted to hs soon. 04/16/22: resume [place] at 300 mg BID as no further evidence of toxicity and no further emesis. Will offer Zyprexa 5 mg BID scheduled and add additional prn Restoril. 04/15/22: The patient was admitted to the [facility] ([facility] inpatient mental health unit) on q15 min checks (behavioral with suicide precautions) for safety. The patient will participate in group, recreational, and milieu therapies and will be offered additional individual and family sessions as clinically appropriate. Will hold lithium to see if MSE improves as trends down. Zyprexa prn. 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 Chief Complaint "I'm feeling more balanced and calm". Review of Systems Sleep Information Total Hours of Sleep: 5.5 Meal Information Percent Meal Consumed - Breakfast: 75 Percent Meal Consumed - Lunch: 75 Percent Meal Consumed - Dinner: 100 Subjective Subjective Patient was seen & assessed and interval progress reviewed with treatment team nursing and social work. More organized, was able to attend all groups yesterday evening. Slept 5.5 hours. Feels her mood is stabilizing. Denies medication side effects, feels less tired during the day with recent medication changes. Still perseverative at times about her medications, needing reassurance and to review timing. Physical Exam Psychiatric Orientation: alert and oriented x 3 Apperance: appropriately dressed and appropriately groomed Eye Contact: good eye contact Motor Behavior: no abnormal motor movements Speech: normal rate/rhythm/volume of speech Affect: + anxious affect Mood: + anxious mood Thought Process: + perseveration and + concrete thought process Thought Content: reality based without delusions Suicidal Thoughts: denies suicidal thoughts Homicidal Thoughts: denies homicidal thoughts Hallucinations: no auditory hallucinations and no visual hallucinations Cognition: remote memory grossly intact and language grossly intact; + recent memory not intact and + attention not intact Estimated Intelligence: consistent with education level Insight: + limited insight Judgement: + limited judgement Vital Signs (Past 24 Hours) Last Vital Signs Temp 36.7 C 04/21/22 06:28 Pulse 80 04/21/22 06:29 Resp 16 04/21/22 06:28 BP 134/83 04/21/22 06:29 Pulse Ox 95 04/14/22 20:57 O2 Del Method 04/14/22 19:39 Results & Data ([facility]) Current Inpatient Medications Current Inpatient Medications: Current Inpatient Medications Acetaminophen (Acetaminophen 325 Mg Tab) 650 mg PO Q4H PRN PRN Reason: Headache or Minor Fever Stop: 05/14/22 19:49 Last Admin: 04/15/22 16:52 Dose: 650 mg Al Hydrox/Mg Hydrox/Simethicone (Aluminum/Magnesium Susp 30 Ml Udc) 30 ml PO Q4H PRN PRN Reason: GI Upset Stop: 05/14/22 19:49 Bismuth Subsalicylate (Bismuth Subsalicylate Liqd 236 Ml) 15 ml PO PRN PRN PRN Reason: Loose Stool Stop: 05/14/22 19:49 Lisinopril/HCTZ (Lisinopril/Hctz 20/12.5mg 1 Tab Tab) 1 tab PO DAILY GLORIA Stop: 05/15/22 08:59 Last Admin: 04/21/22 08:41 Dose: 1 tab Lamotrigine (Lamotrigine 100 Mg Tab) 100 mg PO BID GLORIA Stop: 05/14/22 20:59 Last Admin: 04/21/22 08:41 Dose: 100 mg Levothyroxine Sodium (Levothyroxine Sodium 50 Mcg Tablet) 50 mcg PO DAILYBB GLORIA Stop: 05/15/22 07:59 Last Admin: 04/21/22 08:41 Dose: 50 mcg [place] Carbonate ([place] Carbonate 300 Mg Tab) 300 mg PO BID GLORIA Stop: 05/16/22 11:54 Last Admin: 04/21/22 08:42 Dose: 300 mg Lorazepam (Lorazepam 1 Mg Tab) 1 mg PO Q6 PRN PRN Reason: Anxiety Stop: 05/16/22 11:56 Lorazepam (Lorazepam 1 Mg Tab) 1 mg PO BID PRN PRN Reason: Anxiety/Agitation Stop: 05/19/22 17:42 Magnesium Hydroxide (Magnesium Hydroxide Susp 30 Ml Udc) 30 ml PO DAILY PRN PRN Reason: Constipation Stop: 05/14/22 19:49 Olanzapine (Olanzapine 5 Mg Tablet) 5 mg PO Q6H PRN PRN Reason: Anxiety/Agitation Stop: 05/14/22 20:31 Last Admin: 04/16/22 11:03 Dose: 5 mg Olanzapine (Olanzapine 10 Mg Tab) 10 mg PO HS GLORIA Stop: 05/20/22 21:59 Last Admin: 04/20/22 21:47 Dose: 10 mg Sodium Chloride (Sodium Chloride 0.65% Na Soln 45 Ml ([place])) 1 - 2 sprays NA PRN PRN PRN Reason: Nasal Dryness/Congestion Stop: 05/14/22 19:49 Temazepam (Temazepam 15 Mg Capsule) 15 mg PO HSZ GLORIA Stop: 05/14/22 21:59 Last Admin: 04/20/22 21:50 Dose: 15 mg Temazepam (Temazepam 15 Mg Capsule) 15 mg PO HSZ PRN PRN Reason: Insomnia Stop: 05/16/22 11:55 Vitamin D (Cholecalciferol 1,000 Units 25 Mcg Tab) 2,000 units PO QAM GLORIA Stop: 05/15/22 08:59 Last Admin: 04/21/22 08:41 Dose: 2,000 units Zinc Acetate/Diphenhydramine (Diphenhydramine 2%/Zinc 0.1% Cream 28gm Tube) 1 appln EXT HS PRN PRN Reason: Itching Stop: 05/20/22 14:14 Mental Health & Subst Abuse Tx Psychiatrist Name of Psychiatrist: Dr Welch Psychiatrist's Date of Appointment with Psychiatrist: 04/30/22 Time of Appointment with Psychiatrist: 12:00 Therapist Name of Therapist: None Lapping Machine Set Up Operator Name of Lapping Machine Set Up Operator: None Post Discharge Appointments Primary Care Physician Name Of Family Doctor: Dr Castillo
[2022-04-21] MEDS: TEMAZEPAM 15 MG CAPSULE PO SCH (20:40)
[2022-04-21] MEDS: OLANZapine 10 MG TAB PO SCH (20:41)
[2022-04-22] MEDS: LITHIUM CARBONATE 300 MG TAB PO SCH (07:47)
[2022-04-22] MEDS: LISINOPRIL/HCTZ 20/12.5MG 1 TAB TAB PO SCH (07:48)
[2022-04-22] MEDS: lamoTRIgine 100 MG TAB PO SCH ×2 (07:48→21:23)
[2022-04-22] MEDS: CHOLECALCIFEROL 1,000 UNITS 25 MCG TAB PO SCH (07:48)
[2022-04-22] MEDS: LEVOTHYROXINE SODIUM 50 MCG TABLET PO SCH (07:48)
--- NOTE | 2022-04-22 08:43 | Psychiatric Progress Note ---
Date of Service April 22, 2022 Impression / Recommendations Impression Manuel is a 57 yo female with a well established diagnosis of bipolar disorder, last admission was frankly delusional, presented with signs of confusion and/or thought disorganization and poor sleep. Initial and repeat lithium levels (2nd for true trough) are high end therapeutic, but she initially presented with concerns for toxicity given GI upset, confusion, etc. She does report taking medication for knee pain, although I don't see rx for an NSAID I wonder if she may be taking OTC which even if not making lithium toxic could contribute to a mild serotonin syndrome picture. Alcohol use increased prior to admission but no evidence of withdrawal. MNPR due to disorganized behavior and poor sleep. 04/22/22: More organized, tolerating groups, mood stabilized and sleep improving. She consents to increasing [place] dose to previous dose of 750mg per day as concern for destabilization per collateral from her long-term outpatient psychiatrist on lower dose. (1) Bipolar disorder: Plan 04/22/22: Increase [place] carbonate to 300mg qd and 450mg qhs (if tolerates well then goal to consolidate dose again at qhs). 04/21/22: Continue current medications and tx plan. 04/20/22: Switch ativan to 1mg BID prn. 04/19/22: Consolidate olanzapine to 10mg qhs starting tomorrow. Switch ativan to 1mg qAM prn and scheduled 1mg at qhs. 04/18/22: Continue current medications and tx plan. 04/17/22: continue current meds and tx plan, I do not plan to add back her additional 150 mg of lithium daily at this time. Zyprexa standing doses can likely be shifted to hs soon. 04/16/22: resume [place] at 300 mg BID as no further evidence of toxicity and no further emesis. Will offer Zyprexa 5 mg BID scheduled and add additional prn Restoril. 04/15/22: The patient was admitted to the [facility] ([facility] inpatient mental health unit) on q15 min checks (behavioral with suicide precautions) for safety. The patient will participate in group, recreational, and milieu therapies and will be offered additional individual and family sessions as clinically appropriate. Will hold lithium to see if MSE improves as trends down. Zyprexa prn. 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 Chief Complaint "I'm doing fine". Review of Systems Sleep Information Total Hours of Sleep: 8.5 Sleep Comments: pt given restoril per rn. pt on q-15 minute checks Meal Information Percent Meal Consumed - Breakfast: 75 Percent Meal Consumed - Lunch: 75 Percent Meal Consumed - Dinner: 100 Subjective Subjective Patient was seen & assessed and interval progress reviewed with treatment team nursing and social work. More organized. Mood is stable. Sleep is improving. She's hopeful for discharge soon. Reviewed that she plans to take on fewer classes next semester as she got stressed with the amount of grading she needed to do and she thinks this may have set off this episode of traci as she remained consistent with her medication. No medication side effects. Physical Exam Psychiatric Orientation: alert and oriented x 3 Apperance: appropriately dressed and appropriately groomed Eye Contact: good eye contact Motor Behavior: no abnormal motor movements Speech: normal rate/rhythm/volume of speech Affect: euthymic affect Mood: no depressed mood and no anxious mood Thought Process: + perseveration Thought Content: reality based without delusions Suicidal Thoughts: denies suicidal thoughts Homicidal Thoughts: denies homicidal thoughts Hallucinations: no auditory hallucinations and no visual hallucinations Cognition: recent memory grossly intact, remote memory grossly intact, attention grossly intact and language grossly intact Estimated Intelligence: consistent with education level Insight: + fair insight Judgement: + fair judgement Vital Signs (Past 24 Hours) Last Vital Signs Temp 36.5 C 04/22/22 06:40 Pulse 79 04/22/22 06:41 Resp 16 04/22/22 06:40 BP 128/88 04/22/22 06:41 Pulse Ox 95 04/14/22 20:57 O2 Del Method 04/14/22 19:39 Results & Data ([facility]) Current Inpatient Medications Current Inpatient Medications: Current Inpatient Medications Acetaminophen (Acetaminophen 325 Mg Tab) 650 mg PO Q4H PRN PRN Reason: Headache or Minor Fever Stop: 05/14/22 19:49 Last Admin: 04/15/22 16:52 Dose: 650 mg Al Hydrox/Mg Hydrox/Simethicone (Aluminum/Magnesium Susp 30 Ml Udc) 30 ml PO Q4H PRN PRN Reason: GI Upset Stop: 05/14/22 19:49 Bismuth Subsalicylate (Bismuth Subsalicylate Liqd 236 Ml) 15 ml PO PRN PRN PRN Reason: Loose Stool Stop: 05/14/22 19:49 Lisinopril/HCTZ (Lisinopril/Hctz 20/12.5mg 1 Tab Tab) 1 tab PO DAILY GLORIA Stop: 05/15/22 08:59 Last Admin: 04/22/22 07:48 Dose: 1 tab Lamotrigine (Lamotrigine 100 Mg Tab) 100 mg PO BID GLORIA Stop: 05/14/22 20:59 Last Admin: 04/22/22 07:48 Dose: 100 mg Levothyroxine Sodium (Levothyroxine Sodium 50 Mcg Tablet) 50 mcg PO DAILYBB GLORIA Stop: 05/15/22 07:59 Last Admin: 04/22/22 07:48 Dose: 50 mcg [place] Carbonate ([place] Carbonate 300 Mg Tab) 300 mg PO BID GLORIA Stop: 05/16/22 11:54 Last Admin: 04/22/22 07:47 Dose: 300 mg Lorazepam (Lorazepam 1 Mg Tab) 1 mg PO Q6 PRN PRN Reason: Anxiety Stop: 05/16/22 11:56 Lorazepam (Lorazepam 1 Mg Tab) 1 mg PO BID PRN PRN Reason: Anxiety/Agitation Stop: 05/19/22 17:42 Magnesium Hydroxide (Magnesium Hydroxide Susp 30 Ml Udc) 30 ml PO DAILY PRN PRN Reason: Constipation Stop: 05/14/22 19:49 Olanzapine (Olanzapine 5 Mg Tablet) 5 mg PO Q6H PRN PRN Reason: Anxiety/Agitation Stop: 05/14/22 20:31 Last Admin: 04/16/22 11:03 Dose: 5 mg Olanzapine (Olanzapine 10 Mg Tab) 10 mg PO HS GLORIA Stop: 05/20/22 21:59 Last Admin: 04/21/22 20:41 Dose: 10 mg Sodium Chloride (Sodium Chloride 0.65% Na Soln 45 Ml ([place])) 1 - 2 sprays NA PRN PRN PRN Reason: Nasal Dryness/Congestion Stop: 05/14/22 19:49 Temazepam (Temazepam 15 Mg Capsule) 15 mg PO HSZ GLORIA Stop: 05/14/22 21:59 Last Admin: 04/21/22 20:40 Dose: 15 mg Temazepam (Temazepam 15 Mg Capsule) 15 mg PO HSZ PRN PRN Reason: Insomnia Stop: 05/16/22 11:55 Vitamin D (Cholecalciferol 1,000 Units 25 Mcg Tab) 2,000 units PO QAM GLORIA Stop: 05/15/22 08:59 Last Admin: 04/22/22 07:48 Dose: 2,000 units Zinc Acetate/Diphenhydramine (Diphenhydramine 2%/Zinc 0.1% Cream 28gm Tube) 1 appln EXT HS PRN PRN Reason: Itching Stop: 05/20/22 14:14 Mental Health & Subst Abuse Tx Psychiatrist Name of Psychiatrist: Dr Welch Psychiatrist's Date of Appointment with Psychiatrist: 04/30/22 Time of Appointment with Psychiatrist: 12:00 Therapist Name of Therapist: None Coring Machine Operator Name of Coring Machine Operator: None Post Discharge Appointments Primary Care Physician Name Of Family Doctor: Dr Castillo
[2022-04-22] MEDS ORDERED: LITHIUM CARBONATE 450 MG TABCR PO SCH (21:00)
[2022-04-22] MEDS: OLANZapine 10 MG TAB PO SCH (21:24)
[2022-04-22] MEDS: LITHIUM CARBONATE 450 MG TABCR PO SCH (21:24)
[2022-04-22] MEDS: TEMAZEPAM 15 MG CAPSULE PO SCH (21:24)
[2022-04-23] MEDS: LEVOTHYROXINE SODIUM 50 MCG TABLET PO SCH (08:03)
[2022-04-23] MEDS: CHOLECALCIFEROL 1,000 UNITS 25 MCG TAB PO SCH (08:03)
[2022-04-23] MEDS: LISINOPRIL/HCTZ 20/12.5MG 1 TAB TAB PO SCH (08:03)
[2022-04-23] MEDS: lamoTRIgine 100 MG TAB PO SCH ×2 (08:03→20:30)
[2022-04-23] MEDS: LITHIUM CARBONATE 300 MG TAB PO SCH (08:04)
--- NOTE | 2022-04-23 09:10 | Psychiatric Progress Note ---
Date of Service April 23, 2022 Impression / Recommendations Impression Manuel is a 57 yo female with a well established diagnosis of bipolar disorder, last admission was frankly delusional, presented with signs of confusion and/or thought disorganization and poor sleep. Initial and repeat lithium levels (2nd for true trough) are high end therapeutic, but she initially presented with concerns for toxicity given GI upset, confusion, etc. She does report taking medication for knee pain, although I don't see rx for an NSAID I wonder if she may be taking OTC which even if not making lithium toxic could contribute to a mild serotonin syndrome picture. Alcohol use increased prior to admission but no evidence of withdrawal. MNPR due to disorganized behavior and poor sleep. 04/23/22: Mood and sleep stabilized. Tolerating higher dose of Li. Will need repeat level in 7 days. (1) Bipolar disorder: Plan 04/23/22: Continue with current medications and tx plan. Will avoid consolidating [place] yet given some increased fatigue today. 04/22/22: Increase [place] carbonate to 300mg qd and 450mg qhs (if tolerates well then goal to consolidate dose again at qhs). 04/21/22: Continue current medications and tx plan. 04/20/22: Switch ativan to 1mg BID prn. 04/19/22: Consolidate olanzapine to 10mg qhs starting tomorrow. Switch ativan to 1mg qAM prn and scheduled 1mg at qhs. 04/18/22: Continue current medications and tx plan. 04/17/22: continue current meds and tx plan, I do not plan to add back her additional 150 mg of lithium daily at this time. Zyprexa standing doses can likely be shifted to hs soon. 04/16/22: resume [place] at 300 mg BID as no further evidence of toxicity and no further emesis. Will offer Zyprexa 5 mg BID scheduled and add additional prn Restoril. 04/15/22: The patient was admitted to the [facility] ([facility] inpatient mental health unit) on q15 min checks (behavioral with suicide precautions) for safety. The patient will participate in group, recreational, and milieu therapies and will be offered additional individual and family sessions as clinically appropriate. Will hold lithium to see if MSE improves as trends down. Zyprexa prn. 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 Chief Complaint "I'm more tired today". Review of Systems Sleep Information Total Hours of Sleep: 6 Sleep Comments: pt given restoril per rn. pt on q-15 minute checks Meal Information Percent Meal Consumed - Breakfast: 100 Percent Meal Consumed - Lunch: 100 Percent Meal Consumed - Dinner: 100 Subjective Subjective Patient was seen & assessed and interval progress reviewed with treatment team nursing and social work. More organized and linear with thoughts. Looking forward to getting back to her classes soon and seeing her children. Denies any medication side effects except that she feels a little more tired today. She's unsure why but was still able to participate in all her groups today. Physical Exam Psychiatric Orientation: alert and oriented x 3 Apperance: appropriately dressed and appropriately groomed Eye Contact: good eye contact Motor Behavior: no abnormal motor movements Speech: normal rate/rhythm/volume of speech Affect: euthymic affect Mood: no depressed mood and no anxious mood Thought Process: goal directed thought process Thought Content: reality based without delusions Suicidal Thoughts: denies suicidal thoughts Homicidal Thoughts: denies homicidal thoughts Hallucinations: no auditory hallucinations and no visual hallucinations Cognition: recent memory grossly intact, remote memory grossly intact, attention grossly intact and language grossly intact Estimated Intelligence: consistent with education level Insight: good insight Judgement: + fair judgement Vital Signs (Past 24 Hours) Last Vital Signs Temp 36.4 C 04/23/22 06:45 Pulse 70 04/23/22 06:47 Resp 18 04/23/22 06:45 BP 123/78 04/23/22 06:47 Pulse Ox 95 04/14/22 20:57 O2 Del Method 04/14/22 19:39 Results & Data ([facility]) Current Inpatient Medications Current Inpatient Medications: Current Inpatient Medications Acetaminophen (Acetaminophen 325 Mg Tab) 650 mg PO Q4H PRN PRN Reason: Headache or Minor Fever Stop: 05/14/22 19:49 Last Admin: 04/15/22 16:52 Dose: 650 mg Al Hydrox/Mg Hydrox/Simethicone (Aluminum/Magnesium Susp 30 Ml Udc) 30 ml PO Q4H PRN PRN Reason: GI Upset Stop: 05/14/22 19:49 Bismuth Subsalicylate (Bismuth Subsalicylate Liqd 236 Ml) 15 ml PO PRN PRN PRN Reason: Loose Stool Stop: 05/14/22 19:49 Lisinopril/HCTZ (Lisinopril/Hctz 20/12.5mg 1 Tab Tab) 1 tab PO DAILY GLORIA Stop: 05/15/22 08:59 Last Admin: 04/23/22 08:03 Dose: 1 tab Lamotrigine (Lamotrigine 100 Mg Tab) 100 mg PO BID GLORIA Stop: 05/14/22 20:59 Last Admin: 04/23/22 08:03 Dose: 100 mg Levothyroxine Sodium (Levothyroxine Sodium 50 Mcg Tablet) 50 mcg PO DAILYBB GLORIA Stop: 05/15/22 07:59 Last Admin: 04/23/22 08:03 Dose: 50 mcg [place] Carbonate ([place] Carbonate 300 Mg Tab) 300 mg PO QD@08 GLORIA Stop: 05/23/22 07:59 Last Admin: 04/23/22 08:04 Dose: 300 mg [place] Carbonate ([place] Carbonate 450 Mg Tabcr) 450 mg PO HS GLORIA Stop: 05/22/22 21:59 Last Admin: 04/22/22 21:24 Dose: 450 mg Lorazepam (Lorazepam 1 Mg Tab) 1 mg PO Q6 PRN PRN Reason: Anxiety Stop: 05/16/22 11:56 Lorazepam (Lorazepam 1 Mg Tab) 1 mg PO BID PRN PRN Reason: Anxiety/Agitation Stop: 05/19/22 17:42 Magnesium Hydroxide (Magnesium Hydroxide Susp 30 Ml Udc) 30 ml PO DAILY PRN PRN Reason: Constipation Stop: 05/14/22 19:49 Olanzapine (Olanzapine 5 Mg Tablet) 5 mg PO Q6H PRN PRN Reason: Anxiety/Agitation Stop: 05/14/22 20:31 Last Admin: 04/16/22 11:03 Dose: 5 mg Olanzapine (Olanzapine 10 Mg Tab) 10 mg PO HS GLORIA Stop: 05/20/22 21:59 Last Admin: 04/22/22 21:24 Dose: 10 mg Sodium Chloride (Sodium Chloride 0.65% Na Soln 45 Ml ([place])) 1 - 2 sprays NA PRN PRN PRN Reason: Nasal Dryness/Congestion Stop: 05/14/22 19:49 Temazepam (Temazepam 15 Mg Capsule) 15 mg PO HSZ GLORIA Stop: 05/14/22 21:59 Last Admin: 04/22/22 21:24 Dose: 15 mg Temazepam (Temazepam 15 Mg Capsule) 15 mg PO HSZ PRN PRN Reason: Insomnia Stop: 05/16/22 11:55 Vitamin D (Cholecalciferol 1,000 Units 25 Mcg Tab) 2,000 units PO QAM GLORIA Stop: 05/15/22 08:59 Last Admin: 04/23/22 08:03 Dose: 2,000 units Zinc Acetate/Diphenhydramine (Diphenhydramine 2%/Zinc 0.1% Cream 28gm Tube) 1 appln EXT HS PRN PRN Reason: Itching Stop: 05/20/22 14:14 Mental Health & Subst Abuse Tx Psychiatrist Name of Psychiatrist: Dr Welch Psychiatrist's Date of Appointment with Psychiatrist: 04/30/22 Time of Appointment with Psychiatrist: 12:00 Therapist Name of Therapist: None Subway Train Operator Name of Subway Train Operator: None Post Discharge Appointments Primary Care Physician Name Of Family Doctor: Dr Castillo
[2022-04-23] MEDS: LITHIUM CARBONATE 450 MG TABCR PO SCH (20:30)
[2022-04-23] MEDS: OLANZapine 10 MG TAB PO SCH (20:30)
[2022-04-23] MEDS: TEMAZEPAM 15 MG CAPSULE PO SCH (20:30)
[2022-04-24] MEDS: LISINOPRIL/HCTZ 20/12.5MG 1 TAB TAB PO SCH (08:26)
[2022-04-24] MEDS: CHOLECALCIFEROL 1,000 UNITS 25 MCG TAB PO SCH (08:26)
[2022-04-24] MEDS: lamoTRIgine 100 MG TAB PO SCH (08:26)
[2022-04-24] MEDS: LITHIUM CARBONATE 300 MG TAB PO SCH (08:26)
[2022-04-24] MEDS: LEVOTHYROXINE SODIUM 50 MCG TABLET PO SCH (08:26)
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
== END 2022-04-24 13:00 | disposition home or self-care (01) | DRG 885 ==
LOC: ED 15:23 → 3S 19:50

== ENCOUNTER 2023-02-25 14:32 | Inpatient (IN) ==
--- NOTE | 2023-02-25 15:30 | Emergency Department Note ---
Impression & Plan Bipolar disorder, Urine leukocytes ED Provider Note NAME: MANUEL VIGIL AGE: 58 SEX: F ARRIVES VIA: Walk-In INFORMANT: Patient ED PROVIDER(S): En Nunez MD CHIEF COMPLAINT: bipolar disorder PLAN: Disposition: Inpatient psychiatric treatment, 3 S. MEDICAL DECISION MAKING: The patient is a 58-year-old woman with a past medical history of bipolar diso rder on lithium, hypertension, hypothyroidism who presents to the emergency accompanied department via walk-in[place] by her son for evaluation of concern for onset of traci where the patient had reported to them that she is not sleeping and "feels tired. His son reports that her doctor had recommended she take her sleep aid medication which she did but they are not sure if this has helped. The patient's son acknowledges that she has not exhibited any "red flag signs" that she has in the past of acute decompensation and traci where she has been lost and unable to be found for instance or walking downstairs naked. However he does note that she is not her usual self where her ability to respond to questions is impaired in terms of slowness and giving minimal word answers such as "absolutely not" to most questions. 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 when asked, the patient affirms that she has prepared for class. The patient's son does not have any information contrary to suggest she has not prepared. 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 On evaluation the patient is in no acute distress, afebrile blood pressure 170/100s and vital signs otherwise stable. She has a flat affect. Her verbal responses are slow with a poverty of speech. She has slow motor movements as well. WBC, H/H and platelets within normal limits. Chemistry without metabolic acidosis. Calcium 10.5, similar to prior and LFTs otherwise unremarkable. TSH within normal limits. UA with WBCs albeit with epithelial cells present no bacteria. Drug screen was unremarkable. COVID-19 RNA, JANET test was negative. The patient's lithium level was within therapeutic range at 1.0. Patient was medically cleared. Initially, upon completion of psychiatric case management evaluation it was determined that there was no criteria for involuntary admission. The patient initially was not interested in inpatient management. However upon my reassessment of the patient discussion with her and her son at the bedside the patient subsequently agreed. Referrals were placed and the patient was accepted to 3 S. for inpatient psychiatric treatment. 201 was signedl. Triage Nursing notes reviewed and agree them. Prior/outside medical records reviewed Vital Signs: reviewed Differential diagnosis: Mood disorder, infection, hypoglycemia, electrolyte abnormalities, cardiac sources, intracerebral event, toxicologic, trauma, neurologic, as well as other pathologies. ER treatment provided: See below. Laboratory studies: See below HPI: The patient is a 58-year-old woman with a past medical history of bipolar disorder on lithium, hypertension, hypothyroidism who presents to the emergency accompanied department via walk-in, [place] by her son for evaluation of concern for onset of traci where the patient had reported to them that she is not sleeping and "feels tired. His son reports that her doctor had recommended she take her sleep aid medication which she did but they are not sure if this has helped. The patient's son acknowledges that she has not exhibited any "red flag signs" that she has in the past of acute decompensation and traci where she has been lost and unable to be found for instance or walking downstairs naked. However he does note that she is not her usual self where her ability to respond to questions is impaired in terms of slowness and giving minimal word answers such as "absolutely not" to most questions. 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 when asked, the patient affirms that she has prepared for class. The patient's son does not have any information contrary to suggest she has not prepared. 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 ROS: See above HPI for pertinent positives & negatives. A total of 10 systems reviewed and were otherwise negative. VITALS:See Below PHYSICAL EXAMINATION: GENERAL: Awake, alert, melancholy-appearing, in no distress HENT: Normocephalic, atraumatic. Oropharynx unremarkable. EYES: Normal conjunctiva. Sclera non-icteric. NECK: Supple. No nuchal rigidity. FROM. No JVD. RESPIRATORY: Clear to auscultation. CARDIAC: Regular rate, normal rhythm. Extremities warm and well perfused. Pulses equal. ABDOMEN: Soft, non-distended. No tenderness to palpation. No rebound or guarding. No masses. RECTAL: Deferred. MUSCULOSKELETAL: Chest examination reveals no tenderness. The back is symmetrical on inspection without obvious abnormality. There is no CVA tenderness to palpation. No joint edema. LOWER EXTREMITIES: Calves are equal size bilaterally and non-tender. No edema. No discoloration. NEURO: Normal sensorium. No sensory or motor deficits noted. SKIN: No rash or jaundice noted. PSYCH: Flat affect. Her verbal responses are slow with a poverty of speech. She has slow motor movements as well. She denies suicidal ideation. She denies auditory hallucination. She reports she is taking her medications. En Nunez MD Past Med/Surg History Medical History Bipolar disorder with severe traci Hypertension Hypothyroidism Left knee DJD Low back pain Multiple thyroid nodules 05/2022 Negative FNA c/w benign follicular Nodule Last US 03/2022 Obesity (BMI 30-39.9) Pain of both hip joints Restless legs syndrome Sclerosis of sacroiliac joint Severe needle phobia Surgical History History of appendectomy History of colonoscopy Family History Mother Hypertension Malignant neoplasm of stomach Father Colon cancer Prostate cancer Aunt Breast cancer, Onset Age: 40 maternal Ovarian cancer, Onset Age: 30 maternal Lung cancer Grandfather (Maternal) Myocardial infarction Grandmother (Maternal) Diabetes Grandfather (Paternal) Myocardial infarction Social History Smoking Status: Former smoker Second Hand Exposure: Yes (FATHER SMOKED WHEN SHE WAS YOUNG); Do You Dip or Chew Tobacco: No; Hx Alcohol Use: Yes Alcohol type: wine Alcohol Intake Frequency: 2-4 x/Month Hx Substance Use: No (medical THC card - but does not use.) Preferred Language: [place] Communication Ability: Effective Visual Impairment: No Limitations Hearing Ability: Hard of Hearing Lubrication Servicer Required: No Beliefs That Will Affect Care: None marital status: Current Living Situation: Family Current Living Situation Comment: son lives with patient current occupational status: employed current occupation: [employer] How many Children do You have: 3 Feels Safe at Home: Yes Childhood Exposure to Second-Hand Smoke: Yes Diet: regular caffeine: Yes (cup of coffee in the morning) during the past year weight has: increased > 10 lbs Dental Care, Regularly: Yes Physical Activity Frequency: Does not Exercise Seatbelt Use: always Sunscreen Use: Yes Gender Identity: Female Assistive Devices: Contacts and Glasses Allergies Allergies Allergy/AdvReac Type Severity Reaction Status Date / Time No Known Drug Allergies Allergy Verified 02/02/23 16:13 Home Meds Home Medications Medication Instructions Recorded Confirmed lithium carbonate 150 mg capsule 150 mg PO HS 06/16/22 02/25/23 lithium carbonate 300 mg capsule 600 mg PO HS 06/16/22 02/25/23 Previous Rx's Medication Instructions Recorded cholecalciferol (vitamin D3) 50 2,000 unit PO QAM #90 caps 11/22/20 mcg (2,000 unit) capsule (Vitamin D3) lisinopril 20 1 tab PO DAILY #90 tabs 09/01/22 mg-hydrochlorothiazide 12.5 mg tablet lamotrigine 200 mg tablet 200 mg PO DAILY #1 tab 09/14/22 levothyroxine 75 mcg tablet 75 mcg PO DAILYBB 30 days #60 tabs 02/02/23 Results & Data (ED) Vital Signs Vital Signs - 24 hr 02/25/23 14:44 02/25/23 20:33 Temperature 36.6 C Temperature Source Temporal Artery Scan Pulse Rate 85 Pulse Rate [Left Finger] 80 Respiratory Rate 18 20 Respiratory Effort / Characteristics Non-Labored Spontaneous Respiratory Depth Normal Respiratory Pattern Regular Blood Pressure 172/109 H Blood Pressure [Left Arm] 157/102 H Blood Pressure Mean 130 Blood Pressure Mean [Left Arm] 120 Pulse Oximetry 98 95 Oxygen Delivery Method Room Air Room Air Sepsis Recent Fever Within 48 Hours No Sepsis New/Unexplained Change in Mental Status No Sepsis Action Taken by Nursing No Action Required Laboratory Data Attestation: I reviewed the patient's lab results. 02/25/23 15:42 02/25/23 15:42 Lab Results 02/25/23 02/25/23 02/25/23 Range/Units 15:40 15:42 15:42 WBC 9.50 (4.8-10.8) K/ul RBC 4.64 (4.20-5.40) M/uL Hgb 13.3 (12.0-16.0) g/dl Hct 39.7 (37.0-47.0) % MCV 85.6 (80.0-100.0) fL MCH 28.7 (25.0-34.0) pg MCHC 33.5 (32.0-36.0) g/dL RDW Std Deviation 39.2 (36.4-46.3) fL RDW Coeff of Page 12.6 (11.5-14.5) % Plt Count 306 (130-400) K/uL MPV 8.7 L (9.4-12.4) fL Immature Gran % (Auto) 0.3 % Neut % (Auto) 69.3 % Lymph % (Auto) 23.3 % [place] % (Auto) 5.1 % Eos % (Auto) 1.3 % Baso % (Auto) 0.7 % Neut # (Auto) 6.59 H (1.40-6.50) K/uL Lymph # (Auto) 2.21 (1.20-3.40) K/uL [place] # (Auto) 0.48 (0.11-0.59) K/uL Eos # (Auto) 0.12 (0.00-0.50) K/uL Baso # (Auto) 0.07 (0.00-0.20) K/uL Immature Gran # (Auto) 0.03 (0.01-0.20) K/uL Sodium 135 L (136-145) mmol/L Potassium 4.2 (3.5-5.1) mmol/L Chloride 105 (98-107) mmol/L Carbon Dioxide 23 (21-32) mmol/L Anion Gap 7 (3-11) BUN 15 (6-23) mg/dl Creatinine 0.82 (0.6-1.2) mg/dl Est Cr Clr Drug Dosing Not Reportable Est GFR ( Amer) 92.1 ml/min Est GFR (Non-Af Amer) 79.4 ml/min BUN/Creatinine Ratio 18.3 (10-20) Glucose 85 (70-99(Fasting)) mg/dl Calcium 10.5 H (8.6-10.3) mg/dl Total Bilirubin 0.6 (0.2-1.0) mg/dl AST 17 (13-39) U/L ALT 15 (7-52) U/L Alkaline Phosphatase 91 (34-104) U/L Total Protein 7.0 (6.0-8.3) gm/dl Albumin 4.6 (3.4-5.0) gm/dl Globulin 2.4 L (2.5-4.0) gm/dl Albumin/Globulin Ratio 1.9 (0.9-2) TSH (0.300-4.500) uIu/ml Urine Color Urine Appearance (Clear) Urine pH (4.5-7.5) Ur Specific [place]ulu (1.000-1.030) Urine Protein (Negative) Urine Glucose (UA) (Negative) Urine Ketones (Negative) Urine Blood (Negative) Urine Nitrite (Negative) Urine Bilirubin (Negative) Urine Urobilinogen (Negative) Ur Leukocyte Esterase (Negative) Urine WBC (Auto) (0-5) /hpf Urine RBC (Auto) (0-4) /hpf U Hyaline Cast (Auto) (0-5) /lpf U Epithel Cells (Auto) (0-5) /lpf Urine Bacteria (Auto) (Negative) Salicylates (3.0-30) mg/dl Urine Opiates Screen (Neg) Ur Methadone, Qual (Neg) Acetaminophen (10-30) ug/ml Urine Barbiturates (Neg) Ur Phencyclidine (PCP) (Neg) U Amphetamin/Meth Scrn (Neg) MDMA (Ecstasy) Screen (Neg) U Benzodiazepines Scrn (Neg) [place] (0.6-1.2) mmol/L Ur Cocaine Metabolite (Neg) U Marijuana (THC) Screen (Neg) Ethyl Alcohol mg/dL (<10.0) mg/dl SARS-CoV-2, RNA, NAAT NEGATIVE (NEGATIVE) 02/25/23 02/25/23 02/25/23 Range/Units 15:42 15:42 15:42 WBC (4.8-10.8) K/ul RBC (4.20-5.40) M/uL Hgb (12.0-16.0) g/dl Hct (37.0-47.0) % MCV (80.0-100.0) fL MCH (25.0-34.0) pg MCHC (32.0-36.0) g/dL RDW Std Deviation (36.4-46.3) fL RDW Coeff of Page (11.5-14.5) % Plt Count (130-400) K/uL MPV (9.4-12.4) fL Immature Gran % (Auto) % Neut % (Auto) % Lymph % (Auto) % [place] % (Auto) % Eos % (Auto) % Baso % (Auto) % Neut # (Auto) (1.40-6.50) K/uL Lymph # (Auto) (1.20-3.40) K/uL [place] # (Auto) (0.11-0.59) K/uL Eos # (Auto) (0.00-0.50) K/uL Baso # (Auto) (0.00-0.20) K/uL Immature Gran # (Auto) (0.01-0.20) K/uL Sodium (136-145) mmol/L Potassium (3.5-5.1) mmol/L Chloride (98-107) mmol/L Carbon Dioxide (21-32) mmol/L Anion Gap (3-11) BUN (6-23) mg/dl Creatinine (0.6-1.2) mg/dl Est Cr Clr Drug Dosing Est GFR ( Amer) ml/min Est GFR (Non-Af Amer) ml/min BUN/Creatinine Ratio (10-20) Glucose (70-99(Fasting)) mg/dl Calcium (8.6-10.3) mg/dl Total Bilirubin (0.2-1.0) mg/dl AST (13-39) U/L ALT (7-52) U/L Alkaline Phosphatase (34-104) U/L Total Protein (6.0-8.3) gm/dl Albumin (3.4-5.0) gm/dl Globulin (2.5-4.0) gm/dl Albumin/Globulin Ratio (0.9-2) TSH 2.719 (0.300-4.500) uIu/ml Urine Color Urine Appearance (Clear) Urine pH (4.5-7.5) Ur Specific [place] (1.000-1.030) Urine Protein (Negative) Urine Glucose (UA) (Negative) Urine Ketones (Negative) Urine Blood (Negative) Urine Nitrite (Negative) Urine Bilirubin (Negative) Urine Urobilinogen (Negative) Ur Leukocyte Esterase (Negative) Urine WBC (Auto) (0-5) /hpf Urine RBC (Auto) (0-4) /hpf U Hyaline Cast (Auto) (0-5) /lpf U Epithel Cells (Auto) (0-5) /lpf Urine Bacteria (Auto) (Negative) Salicylates < 3.0 L (3.0-30) mg/dl Urine Opiates Screen (Neg) Ur Methadone, Qual (Neg) Acetaminophen < 3 L (10-30) ug/ml Urine Barbiturates (Neg) Ur Phencyclidine (PCP) (Neg) U Amphetamin/Meth Scrn (Neg) MDMA (Ecstasy) Screen (Neg) U Benzodiazepines Scrn (Neg) [place] 1.0 (0.6-1.2) mmol/L Ur Cocaine Metabolite (Neg) U Marijuana (THC) Screen (Neg) Ethyl Alcohol mg/dL < 10.0 (<10.0) mg/dl SARS-CoV-2, RNA, NAAT (NEGATIVE) 02/25/23 02/25/23 Range/Units 18:53 18:53 WBC (4.8-10.8) K/ul RBC (4.20-5.40) M/uL Hgb (12.0-16.0) g/dl Hct (37.0-47.0) % MCV (80.0-100.0) fL MCH (25.0-34.0) pg MCHC (32.0-36.0) g/dL RDW Std Deviation (36.4-46.3) fL RDW Coeff of Page (11.5-14.5) % Plt Count (130-400) K/uL MPV (9.4-12.4) fL Immature Gran % (Auto) % Neut % (Auto) % Lymph % (Auto) % [place] % (Auto) % Eos % (Auto) % Baso % (Auto) % Neut # (Auto) (1.40-6.50) K/uL Lymph # (Auto) (1.20-3.40) K/uL [place] # (Auto) (0.11-0.59) K/uL Eos # (Auto) (0.00-0.50) K/uL Baso # (Auto) (0.00-0.20) K/uL Immature Gran # (Auto) (0.01-0.20) K/uL Sodium (136-145) mmol/L Potassium (3.5-5.1) mmol/L Chloride (98-107) mmol/L Carbon Dioxide (21-32) mmol/L Anion Gap (3-11) BUN (6-23) mg/dl Creatinine (0.6-1.2) mg/dl Est Cr Clr Drug Dosing Est GFR ( Amer) ml/min Est GFR (Non-Af Amer) ml/min BUN/Creatinine Ratio (10-20) Glucose (70-99(Fasting)) mg/dl Calcium (8.6-10.3) mg/dl Total Bilirubin (0.2-1.0) mg/dl AST (13-39) U/L ALT (7-52) U/L Alkaline Phosphatase (34-104) U/L Total Protein (6.0-8.3) gm/dl Albumin (3.4-5.0) gm/dl Globulin (2.5-4.0) gm/dl Albumin/Globulin Ratio (0.9-2) TSH (0.300-4.500) uIu/ml Urine Color Yellow Urine Appearance Clear (Clear) Urine pH 6.5 (4.5-7.5) Ur Specific [place] 1.013 (1.000-1.030) Urine Protein Negative (Negative) Urine Glucose (UA) Negative (Negative) Urine Ketones 1+ H (Negative) Urine Blood Negative (Negative) Urine Nitrite Negative (Negative) Urine Bilirubin Negative (Negative) Urine Urobilinogen Negative (Negative) Ur Leukocyte Esterase 3+ H (Negative) Urine WBC (Auto) >30 H (0-5) /hpf Urine RBC (Auto) 0-4 (0-4) /hpf U Hyaline Cast (Auto) 0 (0-5) /lpf U Epithel Cells (Auto) >30 H (0-5) /lpf Urine Bacteria (Auto) Negative (Negative) Salicylates (3.0-30) mg/dl Urine Opiates Screen Neg (Neg) Ur Methadone, Qual Neg (Neg) Acetaminophen (10-30) ug/ml Urine Barbiturates Neg (Neg) Ur Phencyclidine (PCP) Neg (Neg) U Amphetamin/Meth Scrn Neg (Neg) MDMA (Ecstasy) Screen Neg (Neg) U Benzodiazepines Scrn Neg (Neg) [place] (0.6-1.2) mmol/L Ur Cocaine Metabolite Neg (Neg) U Marijuana (THC) Screen Neg (Neg) Ethyl Alcohol mg/dL (<10.0) mg/dl SARS-CoV-2, RNA, NAAT (NEGATIVE) Administered Medications Discontinued Medications Cephalexin HCl (Cephalexin 250 Mg Cap) 500 mg PO NOW ONE; Protocol Stop: 02/25/23 20:43 Last Admin: 02/25/23 20:49 Dose: 500 mg Documented By: SYLVESTER Lamotrigine (Lamotrigine 100 Mg Tab) 200 mg PO NOW ONE Stop: 02/25/23 22:34 Last Admin: 02/25/23 22:59 Dose: 200 mg Documented By: SHAJI [place] Carbonate ([place] Carbonate 300 Mg Tab) 750 mg PO NOW ONE Stop: 02/25/23 22:35 Last Admin: 02/25/23 22:57 Dose: 750 mg Documented By: SHAJI Ondansetron HCl (Ondansetron 4 Mg Od Tab) 4 mg PO NOW STA Stop: 02/25/23 20:43 Last Admin: 02/25/23 20:49 Dose: 4 mg Documented By: SYLVESTER Discharge Plan Visit Data Chief Complaint: Mental Health Evaluation Stated Complaint: FATIGUE, MANIC, HYPERACTIVE ED Provider: En Nunez Discharge Problem: Bipolar disorder, Urine leukocytes Patient Disposition: Admitted As Inpatient Discharge Instructions Interventions: ED Discharge Assessment Last Done: 02/25/23 21:42 Bipolar disorder Qualifiers: Active/Remission status: currently active Current bipolar episode type: mixed Current episode severity: mild Qualified Code(s): F31.61 - Bipolar disorder, current episode mixed, mild
[2023-02-25 15:56] LABS: Basophils # (auto) 0.07 K/uL (0.00-0.20); Basophils % (auto) 0.7 %; Eosinophils # (auto) 0.12 K/uL (0.00-0.50); Eosinophils % (auto) 1.3 %; Hematocrit (blood only) 39.7 % (37.0-47.0); Hemoglobin 13.3 g/dl (12.0-16.0); Immature Granulocytes # (auto) 0.03 K/uL (0.01-0.20); Immature Granulocytes % (auto) 0.3 %; Lymphocytes # (auto) 2.21 K/uL (1.20-3.40); Lymphocytes % (auto) 23.3 %; Mean Corpuscular Hemoglobin 28.7 pg (25.0-34.0); Mean Corpuscular Hgb Conc 33.5 g/dL (32.0-36.0); Mean Corpuscular Volume 85.6 fL (80.0-100.0); Mean Platelet Volume 8.7 fL (9.4-12.4); Monocytes # (auto) 0.48 K/uL (0.11-0.59); Monocytes % (auto) 5.1 %; Neutrophils # (auto) 6.59 K/uL (1.40-6.50); Neutrophils % (auto) 69.3 %; Platelet Count 306 K/uL (130-400); RDW Coefficient of Variation 12.6 % (11.5-14.5); RDW Standard Deviation 39.2 fL (36.4-46.3); Red Blood Count 4.64 M/uL (4.20-5.40)
[2023-02-25 16:19] LABS: Alanine Aminotransferase 15 U/L (7-52); Albumin Globulin Ratio 1.9 (0.9-2); Albumin Level 4.6 gm/dl (3.4-5.0); Alkaline Phosphatase 91 U/L (34-104); Anion Gap 7 (3-11); Aspartate Aminotransferase 17 U/L (13-39); BUN Creatinine Ratio 18.3 (10-20); Bilirubin,Total 0.6 mg/dl (0.2-1.0); Blood Urea Nitrogen 15 mg/dl (6-23); Calcium 10.5 mg/dl (8.6-10.3); Carbon Dioxide 23 mmol/L (21-32); Chloride 105 mmol/L (98-107); Est GFR (African American) 92.1 ml/min; Est GFR (Non-African American) 79.4 ml/min; Globulin 2.4 gm/dl (2.5-4.0); Glucose 85 mg/dl (70-99(Fasting)); Potassium 4.2 mmol/L (3.5-5.1); Sodium 135 mmol/L (136-145)
[2023-02-25 16:33] LABS: Acetaminophen < 3 ug/ml (10-30); Salicylate < 3.0 mg/dl (3.0-30)
[2023-02-25 19:19] LABS: Appearance Urine Clear (Clear); Bacteria Urine Automated Negative (Negative); Bilirubin Urine Negative (Negative); Blood Urine Negative (Negative); Cast Urine Automated 0 /lpf (0-5); Color Urine Yellow; Epithelial Cell Urine Auto >30 /lpf (0-5); Glucose Urine UA Negative (Negative); Ketones Urine 1+ (Negative); Leukocyte Esterase Urine 3+ (Negative); Nitrite Urine Negative (Negative); Protein Urine Negative (Negative); RBC Urine Automated 0-4 /hpf (0-4); Specific Gravity Urine 1.013 (1.000-1.030); Urobilinogen Urine Negative (Negative); WBC Urine Automated >30 /hpf (0-5); pH Urine 6.5 (4.5-7.5)
[2023-02-25 20:21] LABS: Amphetamines+Metham, Urine Neg (Neg); Barbiturates, Urine Neg (Neg); Benzodiazepine, Urine Neg (Neg); Cocaine, Urine Neg (Neg); MDMA (Ecstacy), Urine Neg (Neg); Methadone, Urine Neg (Neg); Opiate, Urine Neg (Neg); Phencyclidine, Urine Neg (Neg)
[2023-02-25] MEDS ORDERED: ONDANSETRON 4 MG OD TAB PO STA (20:42)
[2023-02-25] MEDS ORDERED: cephALEXin 250 MG CAP PO ONE (20:42)
[2023-02-25] MEDS ORDERED: MAGNESIUM HYDROXIDE SUSP 30 ML UDC PO PRN (22:05)
[2023-02-25] MEDS ORDERED: ACETAMINOPHEN 325 MG TAB PO PRN (22:05)
[2023-02-25] MEDS ORDERED: hydrOXYzine HCl 25 MG TAB PO PRN ×2 (22:05)
[2023-02-25] MEDS ORDERED: BISMUTH SUBSALICYLATE LIQD 236 ML PO PRN (22:05)
[2023-02-25] MEDS ORDERED: SODIUM CHLORIDE 0.65% NA SOLN 45 ML (OCEAN) PRN (22:05)
[2023-02-25] MEDS ORDERED: ALUMINUM/MAGNESIUM SUSP 30 ML UDC PO PRN (22:05)
[2023-02-25] MEDS ORDERED: TEMAZEPAM 15 MG CAPSULE PO PRN (22:07)
[2023-02-25] MEDS ORDERED: lamoTRIgine 100 MG TAB PO ONE (22:33)
[2023-02-25] MEDS ORDERED: LITHIUM CARBONATE 300 MG TAB PO ONE (22:34)
[2023-02-26] MEDS: OLANZapine ZYDIS 5 MG ORALLY DIS. TAB PO PRN ×2 (08:29→13:10)
--- NOTE | 2023-02-26 13:57 | History & Physical ---
Date of Service February 26, 2023 Impression / Recommendations Impression China is a 58 year old woman with a history of bipolar affective disorder with episodes of traci with psychosis who was admitted for acute traci with psychosis. Diagnostically she has a history of episodes of acute traci marked by prominent confusion and fatigue with poor sleep, disorganized behaviors and psychomotor activation typically around the start of the college semester in the fall. Her lithium level is therapeutic at 1.0 with limited response to additional temazepam for insomnia so will start olanzapine at bedtime which she has responded well to the past during episodes of traci. She is deemed in need of psychiatric hospitalization for safety and stabilization, medication management and development of further coping skills and for inability to attend to basic self-care needs due to degree of confusion/traci. MNPR due to psychosis Discussed medication treatment options. Discussed risks, benefits and alternatives as she was able to tolerate. She consents to start olanzapine at bedtime to help with sleep and continuing [place] and lamictal for mood stabilization. Reviewed side effects including but not limited to: potential for fatal rash with lamictal (confirmed she has been consistently taking this); risks of dehydration, renal, thyroid, cardiac, drug interactions (NSAIDs, ACEIs, angiotensin receptor antagonists, risks) with lithium, and movement (TD, NMS), cardiac (QTc prolongation), and metabolic (stroke, insulin resistance) and necessity for fasting lipid and glucose labwork and AIMS done with score of 0 with olanzapine. Overall, I spent a total of 80 minutes with this case including review of chart records, review of labwork, direct evaluation of the patient at bedside, counseling the patient, ordering medication/labs, discussion of the patient with treatment team during clinical rounds, review of collateral historian information from the family and documentation in the electronic health record. (1) Bipolar affective, manic, severe w/ psych: Plan 02/26/2023: The patient was admitted to the [facility] ([facility] inpatient mental health unit) on q15 min checks (behavioral with suicide precautions) for safety. The patient will participate in group, recreational, and milieu therapies and will be offered additional individual and family sessions as clinically appropriate. -Continue prior to admission [place] 750mg HS, lamictal 200mg daily -Start olanzapine 10mg HS po -Fasting glucose, lipid panel in AM Inventory Assets Strengths: supportive relationships, willing to get treatment Needs: safety and stabilization, medication adjustment, additional coping skills, sleep Suicide Risk Level Suicide Risk Level: Low (q15 min observation checks) (denies SI, feels safe in the hospital, agrees to let nursing know if she feels unsafe or needs further support) Suicide Risk Level Comments: Risk Factors Assessment Male: No : Yes (Guyanese) Do You Have Access To A Gun?: No Mental Health Diagnoses: Yes Previous Attempt: No Family History of Suicide: No Previous Psychiatric Hospitalization: Yes Hopelessness: No Protective Factors Assessment 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 Chief Complaint "I am tired but if I rest I relax". History of Present Illness China presented to the ED with her son for worsening confusion and fatigue concerning for an episode of traci. 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 While in the ED she was initially somewhat able to participate in assessment causing them to consider sending her home but then demonstrated increased confusion, was talking back and forth between Guyanese and Kazakh rapidly and showing ongoing psychomotor activation consistent with acute traci and necessitating inpatient psychiatric admission. After being admitted to [facility] last night she was quite confused, thought she needed to leave and was reminded that she had only just arrived. She then accepted prn temazepam but still hardly slept, only about 2 hours, and was then awake and confused about where to use the restroom (forgetting it was in her room) and packing up all her belongings thinking she needed to leave at 3am. She remained hyperverbal and pacing in the hallways all morning until redirected to her room to attempt to rest but remained awake all day even after additional prn of olanzapine. At times today she has been calling out (unclear to who/seems to be responding to possible internal stimuli) and tearful at times. She was not able to tolerate attending any groups nor was she able to participate fully with psychiatric interview nor social history assessment due to her confusion and delayed thought process. She is able to state she's feeling tired but has not been able to sleep over the last 3-4 days. She started taking temazepam 15mg HS prn at the advise of her outpatient psychiatrist over the last few days but has still been unable to sleep. She agrees she is likely now in an episode of traci. States she's been taking her lithium and other medications as prescribed. Past Psychiatric History Current Psychiatric Diagnosis: Bipolar disorder Outpatient Services: psychiatry with Dr. Welch Previous Psych Admissions: multiple: she estimates ~9, most recently [facility] April 2022, [facility] in 02/2018 and 06/2021 and at the [facility] 05/2020 Do You Have Access To A Gun?: No History of Previous Suicide Attempt: No Past Medication Trials: unable to assess but per chart review: hx ativan (07/2020) and temazepam, currently prescribed lithium 750 mg qhs, hx seroquel, lamictal, hx olanzapine 10mg HS Past Head Trauma/Neuro History History of Concussion/Seizure: No Allergies Allergy/AdvReac Type Severity Reaction Status Date / Time No Known Drug Allergies Allergy Verified 02/26/23 15:43 Home Medications Medication Instructions Recorded Confirmed Type cholecalciferol (vitamin D3) 50 2,000 unit PO QAM #90 caps 11/22/20 02/25/23 Rx mcg (2,000 unit) capsule (Vitamin D3) lithium carbonate 150 mg capsule 150 mg PO HS 06/16/22 02/25/23 History lithium carbonate 300 mg capsule 600 mg PO HS 06/16/22 02/25/23 History lisinopril 20 1 tab PO DAILY #90 tabs 09/01/22 02/25/23 Rx mg-hydrochlorothiazide 12.5 mg tablet lamotrigine 200 mg tablet 200 mg PO DAILY #1 tab 09/14/22 02/25/23 Rx levothyroxine 75 mcg tablet 75 mcg PO DAILYBB 30 days #60 tabs 02/02/23 02/25/23 Rx Family History Family History of: Doesn't Know Alcohol History Hx of Alcohol Use Over the Past 12 Months: Yes (2-4x/month 1 or 2 drinks on occurrence) AUDIT Total Score: 2 Smoking Use Have You Smoked or Used Tobacco Products in the Last 30 Days: No tobacco type: cigarettes Smoking Status: Former smoker Substance History Hx of Prescription Med Misuse Over the Past 12 Months: No Hx of Over the Counter Med Misuse Over the Past 12 Months: No Hx of Inhalent Misuse Over the Past 12 Months: No Hx of Organic Substance Use Over the Past 12 Months: No Hx of Illegal Substances/Street Drug Use Over Past 12 Months: No Problems as a Result of Past Substance Use: None Identified Personal History Living Arrangements: Home Highest Grade Completed: College 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) Beliefs That Will Affect Care: None Current Legal Problems: No Hx Legal Problems: No Hx Traumatic Life Events: No Patient History Medical History Bipolar disorder with severe traci Hypertension Hypothyroidism Left knee DJD Low back pain Multiple thyroid nodules 05/2022 Negative FNA c/w benign follicular Nodule Last 03/2022 Obesity (BMI 30-39.9) Pain of both hip joints Restless legs syndrome Sclerosis of sacroiliac joint Severe needle phobia Surgical History History of appendectomy History of colonoscopy Family History Mother Hypertension Malignant neoplasm of stomach Father Colon cancer Prostate cancer Aunt Breast cancer, Onset Age: 40 maternal Ovarian cancer, Onset Age: 30 maternal Lung cancer Grandfather (Maternal) Myocardial infarction Grandmother (Maternal) Diabetes Grandfather (Paternal) Myocardial infarction Social History Smoking Status: Former smoker Second Hand Exposure: Yes (FATHER SMOKED WHEN SHE WAS YOUNG); Do You Dip or Chew Tobacco: No; Hx Alcohol Use: Yes Alcohol type: wine Alcohol Intake Frequency: 2-4 x/Month Hx Substance Use: No (medical THC card - but does not use.) Preferred Language: Kazakh Communication Ability: Effective Visual Impairment: No Limitations Hearing Ability: Hard of Hearing [place] Former Required: No Beliefs That Will Affect Care: None marital status: Current Living Situation: Family Current Living Situation Comment: son lives with patient current occupational status: employed current occupation: [employer] How many Children do You have: 3 Feels Safe at Home: Yes Childhood Exposure to Second-Hand Smoke: Yes Diet: regular caffeine: Yes (cup of coffee in the morning) during the past year weight has: increased > 10 lbs Dental Care, Regularly: Yes Physical Activity Frequency: Does not Exercise Seatbelt Use: always Sunscreen Use: Yes Gender Identity: Female Assistive Devices: Contacts and Glasses Review of Systems Review of Systems: All systems reviewed & are unremarkable except as noted in HPI & below Physical Exam Psychiatric: Orientation: alert, oriented to person and oriented to place; + not oriented to time Apperance: + disheveled Eye Contact: + fair eye contact Motor Behavior: + psychomotor agitation Speech: + abnormal rate/rhythm/volume of speech (rapid) Affect: + labile affect Mood: + a nxious mood and + irritable mood Thought Process: + looseness of associations Thought Content: + delusions and + derealization Suicidal Thoughts: denies suicidal thoughts Homicidal Thoughts: denies homicidal thoughts Hallucinations: + auditory hallucinations (seems to be possibly responding to voices at times); no visual hallucinations Cognition: remote memory grossly intact; + recent memory not intact and + attention not intact Insight: + limited insight Judgment: + limited judgement Vital Signs (Past 24 Hours): Last Vital Signs Temp 36.9 C 02/26/23 06:52 Pulse 80 02/26/23 06:53 Resp 18 02/26/23 06:52 BP 145/93 H 02/26/23 06:53 Pulse Ox 95 02/25/23 20:33 O2 Del Method Room Air 02/25/23 21:42 Exam Statement: A physical exam was performed in the ED by Dr. Nunez for the purposes of medical clearance. I accept that physical as correct and adequate for the purposes of the inpatient physical exam. Results & Data ([facility]) Laboratory Results Laboratory Results - last 24 hr 02/25/23 02/25/23 02/25/23 15:40 15:42 15:42 WBC 9.50 RBC 4.64 Hgb 13.3 Hct 39.7 MCV 85.6 MCH 28.7 MCHC 33.5 RDW Std Deviation 39.2 RDW Coeff of Page 12.6 Plt Count 306 MPV 8.7 L Immature Gran % (Auto) 0.3 Neut % (Auto) 69.3 Lymph % (Auto) 23.3 [place] % (Auto) 5.1 Eos % (Auto) 1.3 Baso % (Auto) 0.7 Neut # (Auto) 6.59 H Lymph # (Auto) 2.21 [place] # (Auto) 0.48 Eos # (Auto) 0.12 Baso # (Auto) 0.07 Immature Gran # (Auto) 0.03 Sodium 135 L Potassium 4.2 Chloride 105 Carbon Dioxide 23 Anion Gap 7 BUN 15 Creatinine 0.82 Est Cr Clr Drug Dosing Not Reportable Est GFR ( Amer) 92.1 Est GFR (Non-Af Amer) 79.4 BUN/Creatinine Ratio 18.3 Glucose 85 Calcium 10.5 H Total Bilirubin 0.6 AST 17 ALT 15 Alkaline Phosphatase 91 Total Protein 7.0 Albumin 4.6 Globulin 2.4 L Albumin/Globulin Ratio 1.9 TSH Urine Color Urine Appearance Urine pH Ur Specific [place] Urine Protein Urine Glucose (UA) Urine Ketones Urine Blood Urine Nitrite Urine Bilirubin Urine Urobilinogen Ur Leukocyte Esterase Urine WBC (Auto) Urine RBC (Auto) U Hyaline Cast (Auto) U Epithel Cells (Auto) Urine Bacteria (Auto) Salicylates Urine Opiates Screen Ur Methadone, Qual Acetaminophen Urine Barbiturates Ur Phencyclidine (PCP) U Amphetamin/Meth Scrn MDMA (Ecstasy) Screen U Benzodiazepines Scrn [place] Ur Cocaine Metabolite U Marijuana (THC) Screen Ethyl Alcohol mg/dL SARS-CoV-2, RNA, NAAT NEGATIVE 02/25/23 02/25/23 02/25/23 15:42 15:42 15:42 WBC RBC Hgb Hct MCV MCH MCHC RDW Std Deviation RDW Coeff of Page Plt Count MPV Immature Gran % (Auto) Neut % (Auto) Lymph % (Auto) [place] % (Auto) Eos % (Auto) Baso % (Auto) Neut # (Auto) Lymph # (Auto) [place] # (Auto) Eos # (Auto) Baso # (Auto) Immature Gran # (Auto) Sodium Potassium Chloride Carbon Dioxide Anion Gap BUN Creatinine Est Cr Clr Drug Dosing Est GFR ( Amer) Est GFR (Non-Af Amer) BUN/Creatinine Ratio Glucose Calcium Total Bilirubin AST ALT Alkaline Phosphatase Total Protein Albumin Globulin Albumin/Globulin Ratio TSH 2.719 Urine Color Urine Appearance Urine pH Ur Specific [place] Urine Protein Urine Glucose (UA) Urine Ketones Urine Blood Urine Nitrite Urine Bilirubin Urine Urobilinogen Ur Leukocyte Esterase Urine WBC (Auto) Urine RBC (Auto) U Hyaline Cast (Auto) U Epithel Cells (Auto) Urine Bacteria (Auto) Salicylates < 3.0 L Urine Opiates Screen Ur Methadone, Qual Acetaminophen < 3 L Urine Barbiturates Ur Phencyclidine (PCP) U Amphetamin/Meth Scrn MDMA (Ecstasy) Screen U Benzodiazepines Scrn [place] 1.0 Ur Cocaine Metabolite U Marijuana (THC) Screen Ethyl Alcohol mg/dL < 10.0 SARS-CoV-2, RNA, NAAT 02/25/23 02/25/23 18:53 18:53 WBC RBC Hgb Hct MCV MCH MCHC RDW Std Deviation RDW Coeff of Page Plt Count MPV Immature Gran % (Auto) Neut % (Auto) Lymph % (Auto) [place] % (Auto) Eos % (Auto) Baso % (Auto) Neut # (Auto) Lymph # (Auto) [place] # (Auto) Eos # (Auto) Baso # (Auto) Immature Gran # (Auto) Sodium Potassium Chloride Carbon Dioxide Anion Gap BUN Creatinine Est Cr Clr Drug Dosing Est GFR ( Amer) Est GFR (Non-Af Amer) BUN/Creatinine Ratio Glucose Calcium Total Bilirubin AST ALT Alkaline Phosphatase Total Protein Albumin Globulin Albumin/Globulin Ratio TSH Urine Color Yellow Urine Appearance Clear Urine pH 6.5 Ur Specific [place] 1.013 Urine Protein Negative Urine Glucose (UA) Negative Urine Ketones 1+ H Urine Blood Negative Urine Nitrite Negative Urine Bilirubin Negative Urine Urobilinogen Negative Ur Leukocyte Esterase 3+ H Urine WBC (Auto) >30 H Urine RBC (Auto) 0-4 U Hyaline Cast (Auto) 0 U Epithel Cells (Auto) >30 H Urine Bacteria (Auto) Negative Salicylates Urine Opiates Screen Neg Ur Methadone, Qual Neg Acetaminophen Urine Barbiturates Neg Ur Phencyclidine (PCP) Neg U Amphetamin/Meth Scrn Neg MDMA (Ecstasy) Screen Neg U Benzodiazepines Scrn Neg [place] Ur Cocaine Metabolite Neg U Marijuana (THC) Screen Neg Ethyl Alcohol mg/dL SARS-CoV-2, RNA, NAAT Current Inpatient Medications Current Inpatient Medications: Current Inpatient Medications Acetaminophen (Acetaminophen 325 Mg Tab) 650 mg PO Q4H PRN PRN Reason: Headache or Minor Fever Stop: 03/27/23 22:04 Al Hydrox/Mg Hydrox/Simethicone (Aluminum/Magnesium Susp 30 Ml Udc) 30 ml PO Q4H PRN PRN Reason: GI Upset Stop: 03/27/23 22:04 Bismuth Subsalicylate (Bismuth Subsalicylate Liqd 236 Ml) 15 ml PO PRN PRN PRN Reason: Loose Stool Stop: 03/27/23 22:04 Hydroxyzine HCl (Hydroxyzine Hcl 25 Mg Tab) 50 mg PO HSZ PRN PRN Reason: Insomnia Stop: 03/27/23 22:04 Hydroxyzine HCl (Hydroxyzine Hcl 25 Mg Tab) 25 mg PO Q4H PRN PRN Reason: Anxiety Stop: 03/27/23 22:04 Lamotrigine (Lamotrigine 100 Mg Tab) 200 mg PO HS GLORIA Stop: 03/28/23 21:59 [place] Carbonate ([place] Carbonate 300 Mg Tab) 750 mg PO HS GLORIA Stop: 03/28/23 21:59 Magnesium Hydroxide (Magnesium Hydroxide Susp 30 Ml Udc) 30 ml PO DAILY PRN PRN Reason: Constipation Stop: 03/27/23 22:04 Olanzapine (Olanzapine Zydis 5 Mg Orally Dis. Tab) 5 mg PO TID PRN PRN Reason: agitation/psychosis Stop: 03/27/23 22:05 Last Admin: 02/26/23 13:10 Dose: 5 mg Sodium Chloride (Sodium Chloride 0.65% Na Soln 45 Ml ([place])) 1 - 2 sprays NA PRN PRN PRN Reason: Nasal Dryness/Congestion Stop: 03/27/23 22:04 Temazepam (Temazepam 15 Mg Capsule) 15 mg PO HSZ PRN PRN Reason: Insomnia Stop: 03/27/23 22:06 Last Admin: 02/25/23 23:48 Dose: 15 mg
[2023-02-26] MEDS: lamoTRIgine 100 MG TAB PO SCH (15:25)
[2023-02-26] MEDS: LISINOPRIL/HCTZ 20/12.5MG 1 TAB TAB PO SCH (15:25)
[2023-02-26] MEDS: OLANZapine 10 MG TAB PO SCH (21:05)
[2023-02-26] MEDS: LITHIUM CARBONATE 300 MG TAB PO SCH ×2 (21:05→21:07)
[2023-02-26] MEDS ORDERED: lamoTRIgine 100 MG TAB PO SCH (22:00)
[2023-02-26] MEDS ORDERED: LITHIUM CARBONATE 300 MG TAB PO SCH (22:00)
[2023-02-27] MEDS: lamoTRIgine 100 MG TAB PO SCH (08:54)
[2023-02-27] MEDS: LISINOPRIL/HCTZ 20/12.5MG 1 TAB TAB PO SCH (08:54)
[2023-02-27] MEDS: LEVOTHYROXINE SODIUM 75 MCG TABLET PO SCH (08:54)
--- NOTE | 2023-02-27 11:07 | Psychiatric Progress Note ---
Date of Service February 27, 2023 Impression / Recommendations Impression Manuel is a 58 year old woman with a history of bipolar affective disorder with episodes of traci with psychosis who was admitted for acute traci with psychosis. Diagnostically she has a history of episodes of acute traci marked by prominent confusion and fatigue with poor sleep, disorganized behaviors and psychomotor activation typically around the start of the college semester in the fall. Her lithium level is therapeutic at 1.0 with limited response to additional temazepam for insomnia so will start olanzapine at bedtime which she has responded well to the past during episodes of traci. She is deemed in need of psychiatric hospitalization for safety and stabilization, medication management and development of further coping skills and for inability to attend to basic self-care needs due to degree of confusion/traci. 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 Asks for reassurence that she'll "ever be able to think clearly". Slept poorly last night despite addition of olanzapine, though she appears to have tolerated addition of that medication without evidence of adverse effects. Reviewed current medication, including the rationale for having added olanzapine (significant mood symptoms despite therapeutic lithium level of 1.0 mmol/L, use of lamotrigine at seemingly appropriate dose). Pt says she's been told she can take varying lamotrigine dose depending on how she feels; I told her I strongly recommend against this as frequent or rapid dose changes are associated with increased risk of toxic epidermal necrolysis. 02/26/2023: Discussed medication treatment options. Discussed risks, benefits and alternatives as she was able to tolerate. She consents to start olanzapine at bedtime to help with sleep and continuing [place] and lamictal for mood s tabilization. Reviewed side effects including but not limited to: potential for fatal rash with lamictal (confirmed she has been consistently taking this); risks of dehydration, renal, thyroid, cardiac, drug interactions (NSAIDs, ACEIs, angiotensin receptor antagonists, risks) with lithium, and movement (TD, NMS), cardiac (QTc prolongation), and metabolic (stroke, insulin resistance) and necessity for fasting lipid and glucose labwork and AIMS done with score of 0 with olanzapine. (1) Bipolar affective, manic, severe w/ psych: Plan 02/27/2023: * continue home medication lamotrigine 200 mg daily * continue home medication lithium 750 mg QHS * continue olanzapine 10 mg QHS - started 02/26/2023 * glycohemoglobin and fasting lipid panel in AM 02/26/2023: The patient was admitted to the [facility] ([facility] unit) on q15 min checks (behavioral with suicide precautions) for safety. The patient will participate in group, recreational, and milieu therapies and will be offered additional individual and family sessions as clinically appropriate. -Continue prior to admission [place] 750mg HS, lamictal 200mg daily -Start olanzapine 10mg HS po -Fasting glucose, lipid panel in AM Inventory Assets Strengths: supportive relationships, willing to get treatment Needs: safety and stabilization, medication adjustment, additional coping skills, sleep Suicide Risk Level Suicide Risk Level: Low (q15 min observation checks) (denies SI, feels safe in the hospital, agrees to let nursing know if she feels unsafe or needs further support) Suicide Risk Level Comments: Risk Factors Assessment Male: No : Yes (Bulgarian) Do You Have Access To A Gun?: No Mental Health Diagnoses: Yes Previous Attempt: No Family History of Suicide: No Previous Psychiatric Hospitalization: Yes Hopelessness: No Protective Factors Assessment 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 Chief Complaint "I can't think straight". 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 For details, see the "Impression" section. Physical Exam Psychiatric Orientation: alert, oriented to person and oriented to place; + not oriented to time Apperance: + disheveled Eye Contact: + fair eye contact Motor Behavior: + psychomotor agitation paces, wrings hands Speech: + abnormal rate/rhythm/volume of speech (rapid) Affect: + anxious affect Mood: + anxious mood and + irritable mood Thought Process: + circumstantial thought process and + tangential thought process Thought Content: + ideas of reference and + derealization Suicidal Thoughts: denies suicidal thoughts, denies suicidal plan and denies suicidal intent Homicidal Thoughts: denies homicidal thoughts Hallucinations: + auditory hallucinations (seems to be possibly responding to voices at times); no visual hallucinations Cognition: remote memory grossly intact; + recent memory not intact and + attention not intact Insight: + limited insight Judgment: + limited judgement Vital Signs (Past 24 Hours) Last Vital Signs Temp 36.9 C 02/27/23 06:47 Pulse 82 02/27/23 06:48 Resp 18 02/27/23 06:47 BP 145/82 H 02/27/23 06:48 Pulse Ox 95 02/25/23 20:33 O2 Del Method Room Air 02/25/23 21:42 Results & Data ([facility]) Current Inpatient Medications Current Inpatient Medications: Current Inpatient Medications Acetaminophen (Acetaminophen 325 Mg Tab) 650 mg PO Q4H PRN PRN Reason: Headache or Minor Fever Stop: 03/27/23 22:04 Al Hydrox/Mg Hydrox/Simethicone (Aluminum/Magnesium Susp 30 Ml Udc) 30 ml PO Q4H PRN PRN Reason: GI Upset Stop: 03/27/23 22:04 Bismuth Subsalicylate (Bismuth Subsalicylate Liqd 236 Ml) 15 ml PO PRN PRN PRN Reason: Loose Stool Stop: 03/27/23 22:04 Lisinopril/HCTZ (Lisinopril/Hctz 20/12.5mg 1 Tab Tab) 1 tab PO DAILY GLORIA Stop: 03/28/23 13:59 Last Admin: 02/27/23 08:54 Dose: 1 tab Hydroxyzine HCl (Hydroxyzine Hcl 25 Mg Tab) 50 mg PO HSZ PRN PRN Reason: Insomnia Stop: 03/27/23 22:04 Hydroxyzine HCl (Hydroxyzine Hcl 25 Mg Tab) 25 mg PO Q4H PRN PRN Reason: Anxiety Stop: 03/27/23 22:04 Lamotrigine (Lamotrigine 100 Mg Tab) 200 mg PO DAILY GLORIA Stop: 03/28/23 13:59 Last Admin: 02/27/23 08:54 Dose: 200 mg Levothyroxine Sodium (Levothyroxine Sodium 75 Mcg Tablet) 75 mcg PO DAILYBB GLORIA Stop: 03/29/23 07:59 Last Admin: 02/27/23 08:54 Dose: 75 mcg [place] Carbonate ([place] Carbonate 300 Mg Tab) 150 mg PO HS GLORIA Stop: 03/28/23 21:59 Last Admin: 02/26/23 21:05 Dose: 150 mg [place] Carbonate ([place] Carbonate 300 Mg Tab) 600 mg PO HS GLORIA Stop: 03/28/23 21:59 Last Admin: 02/26/23 21:07 Dose: 600 mg Magnesium Hydroxide (Magnesium Hydroxide Susp 30 Ml Udc) 30 ml PO DAILY PRN PRN Reason: Constipation Stop: 03/27/23 22:04 Olanzapine (Olanzapine Zydis 5 Mg Orally Dis. Tab) 5 mg PO TID PRN PRN Reason: agitation/psychosis Stop: 03/27/23 22:05 Last Admin: 02/26/23 13:10 Dose: 5 mg Olanzapine (Olanzapine 10 Mg Tab) 10 mg PO HS [facility] Stop: 03/28/23 21:59 Last Admin: 02/26/23 21:05 Dose: 10 mg Sodium Chloride (Sodium Chloride 0.65% Na Soln 45 Ml ([place])) 1 - 2 sprays NA PRN PRN PRN Reason: Nasal Dryness/Congestion Stop: 03/27/23 22:04 Vitamin D (Cholecalciferol 1,000 Units 25 Mcg Tab) [facility] [place] [facility] Stop: 03/29/23 14:14
[2023-02-27] MEDS: CHOLECALCIFEROL 1,000 UNITS 25 MCG TAB PO SCH (15:49)
[2023-02-27] MEDS: LITHIUM CARBONATE 300 MG TAB PO SCH ×2 (21:06→21:52)
[2023-02-27] MEDS: OLANZapine 10 MG TAB PO SCH (21:07)
[2023-02-27] MEDS: TEMAZEPAM 15 MG CAPSULE PO SCH (21:09)
[2023-02-28 08:27] LABS: Chol HDL Ratio 3.2 (0-5)
[2023-02-28 08:37] LABS: Estimated Average Glucose 111 mg/dl; Hemoglobin A1C 5.5 % (4.5-5.6)
[2023-02-28] MEDS: LISINOPRIL/HCTZ 20/12.5MG 1 TAB TAB PO SCH (09:15)
[2023-02-28] MEDS: LEVOTHYROXINE SODIUM 75 MCG TABLET PO SCH (09:15)
[2023-02-28] MEDS: lamoTRIgine 100 MG TAB PO SCH (09:15)
[2023-02-28] MEDS: CHOLECALCIFEROL 1,000 UNITS 25 MCG TAB PO SCH (09:15)
--- NOTE | 2023-02-28 18:15 | Psychiatric Progress Note ---
Date of Service February 28, 2023 Impression / Recommendations Impression Manuel is a 58 year old woman with a history of bipolar affective disorder with episodes of traci with psychosis who was admitted for acute traci with psychosis. Diagnostically she has a history of episodes of acute traci marked by prominent confusion and fatigue with poor sleep, disorganized behaviors and psychomotor activation typically around the start of the college semester in the fall. Her lithium level is therapeutic at 1.0 with limited response to additional temazepam for insomnia so will start olanzapine at bedtime which she has responded well to the past during episodes of traci. She is deemed in need of psychiatric hospitalization for safety and stabilization, medication management and development of further coping skills and for inability to attend to basic self-care needs due to degree of confusion/traci. 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 She remains anxious, repetitively seeking reassurance but is more able to focus and attend to interaction. No pacing or hand-wringing. At her request reviewed lab results in detail. Has been tolerating addition of olanzapine with no evident adverse effects. 02/27/2023: Pt anxious, pacing and wringing her hands. Asks for reassurance that she'll "ever be able to think clearly". Slept poorly last night despite addition of olanzapine, though she appears to have tolerated addition of that medication without evidence of adverse effects. Reviewed current medication, including the rationale for having added olanzapine (significant mood symptoms despite therapeutic lithium level of 1.0 mmol/L, use of lamotrigine at seemingly appropriate dose). Pt says she's been told she can take varying lamotrigine dose depending on how she feels; I told her I strongly recommend against this as frequent or rapid dose changes are associated with increased risk of toxic epidermal necrolysis. 02/26/2023: Discussed medication treatment options. Discussed risks, benefits and alternatives as she was able to tolerate. She consents to start olanzapine at bedtime to help with sleep and continuing [place] and lamictal for mood stabilization. Reviewed side effects including but not limited to: potential for fatal rash with lamictal (confirmed she has been consistently taking this); risks of dehydration, renal, thyroid, cardiac, drug interactions (NSAIDs, ACEIs, angiotensin receptor antagonists, risks) with lithium, and movement (TD, NMS), cardiac (QTc prolongation), and metabolic (stroke, insulin resistance) and necessity for fasting lipid and glucose labwork and AIMS done with score of 0 with olanzapine. (1) Bipolar affective, manic, severe w/ psych: Plan 02/28/2023: * continue home medication lamotrigine 200 mg daily * continue home medication lithium 750 mg QHS * continue olanzapine 10 mg QHS - started 02/26/2023 * continue temazepam 15 mg QHS PRN insomnia - resumed 02/27/2023 02/27/2023: * continue home medication lamotrigine 200 mg daily * continue home medication lithium 750 mg QHS * continue olanzapine 10 mg QHS - started 02/26/2023 * glycohemoglobin and fasting lipid panel in AM 02/26/2023: The patient was admitted to the [facility]) on q15 min checks (behavioral with suicide precautions) for safety. The patient will participate in group, recreational, and milieu therapies and will be offered additional individual and family sessions as clinically appropriate. -Continue prior to admission [place] 750mg HS, lamictal 200mg daily -Start olanzapine 10mg HS po -Fasting glucose, lipid panel in AM Inventory Assets Strengths: supportive relationships, willing to get treatment Needs: safety and stabilization, medication adjustment, additional coping skills, sleep Suicide Risk Level Suicide Risk Level: Low (q15 min observation checks) (denies SI, feels safe in the hospital, agrees to let nursing know if she feels unsafe or needs further support) Suicide Risk Level Comments: Risk Factors Assessment Male: No : Yes (Hebrew) Do You Have Access To A Gun?: No Mental Health Diagnoses: Yes Previous Attempt: No Family History of Suicide: No Previous Psychiatric Hospitalization: Yes Hopelessness: No Protective Factors Assessment 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 Chief Complaint "I got some sleep". 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 For details, see the "Impression" section. Physical Exam Psychiatric Orientation: alert, oriented to person, oriented to place, oriented to time and cooperative Apperance: + disheveled Eye Contact: + fair eye contact Motor Behavior: no abnormal motor movements Speech: normal rate/rhythm/volume of speech Affect: + anxious affect Mood: + anxious mood Thought Process: + circumstantial thought process and + tangential thought process Thought Content: + cognitive distortions and + self deprecation Suicidal Thoughts: denies suicidal thoughts, denies suicidal plan and denies suicidal intent Homicidal Thoughts: denies homicidal thoughts Hallucinations: no auditory hallucinations and no visual hallucinations Cognition: remote memory grossly intact; + recent memory not intact and + attention not intact Insight: + limited insight Judgment: + limited judgement Vital Signs (Past 24 Hours) Last Vital Signs Temp 37 C 02/28/23 06:48 Pulse 89 02/28/23 06:48 Resp 18 02/28/23 06:48 BP 128/93 02/28/23 06:48 Pulse Ox 95 02/25/23 20:33 O2 Del Method Room Air 02/25/23 21:42 Results & Data ([facility]) Laboratory Results Laboratory Results - last 24 hr 02/28/23 02/28/23 07:34 07:34 Estimat Average Glucose 111 Hemoglobin A1c 5.5 Triglycerides 60 Cholesterol 166 LDL Cholesterol, Calc 102 VLDL Cholesterol, Calc 12 HDL Cholesterol 52 Cholesterol/HDL Ratio 3.2 Current Inpatient Medications Current Inpatient Medications: Current Inpatient Medications Acetaminophen (Acetaminophen 325 Mg Tab) 650 mg PO Q4H PRN PRN Reason: Headache or Minor Fever Stop: 03/27/23 22:04 Al Hydrox/Mg Hydrox/Simethicone (Aluminum/Magnesium Susp 30 Ml Udc) 30 ml PO Q4H PRN PRN Reason: GI Upset Stop: 03/27/23 22:04 Bismuth Subsalicylate (Bismuth Subsalicylate Liqd 236 Ml) 15 ml PO PRN PRN PRN Reason: Loose Stool Stop: 03/27/23 22:04 Lisinopril/HCTZ (Lisinopril/Hctz 20/12.5mg 1 Tab Tab) 1 tab PO DAILY [facility]ORIA Stop: 03/28/23 13:59 Last Admin: 02/28/23 09:15 Dose: 1 tab Hydroxyzine HCl (Hydroxyzine Hcl 25 Mg Tab) 50 mg PO HSZ PRN PRN Reason: Insomnia Stop: 03/27/23 22:04 Hydroxyzine HCl (Hydroxyzine Hcl 25 Mg Tab) 25 mg PO Q4H PRN PRN Reason: Anxiety Stop: 03/27/23 22:04 Lamotrigine (Lamotrigine 100 Mg Tab) 200 mg PO DAILY GLORIA Stop: 03/28/23 13:59 Last Admin: 02/28/23 09:15 Dose: 200 mg Levothyroxine Sodium (Levothyroxine Sodium 75 Mcg Tablet) 75 mcg PO DAILYBB [place]OR[place] Stop: 03/29/23 07:59 Last Admin: 02/28/23 09:15 Dose: 75 mcg [place] Carbonate ([place] Carbonate 300 Mg Tab) 150 mg PO HS [facility]ORIA Stop: 03/28/23 21:59 Last Admin: 02/27/23 21:52 Dose: 150 mg [place] Carbonate ([place] Carbonate 300 Mg Tab) 600 mg PO HS [facility]ORIA Stop: 03/28/23 21:59 Last Admin: 02/27/23 21:06 Dose: 600 mg Magnesium Hydroxide (Magnesium Hydroxide Susp 30 Ml Udc) 30 ml PO DAILY PRN PRN Reason: Constipation Stop: 03/27/23 22:04 Olanzapine (Olanzapine Zydis 5 Mg Orally Dis. Tab) 5 mg PO TID PRN PRN Reason: agitation/psychosis Stop: 03/27/23 22:05 Last Admin: 02/26/23 13:10 Dose: 5 mg Olanzapine (Olanzapine 10 Mg Tab) 10 mg PO HS GLORIA Stop: 03/28/23 21:59 Last Admin: 02/27/23 21:07 Dose: 10 mg Sodium Chloride (Sodium Chloride 0.65% Na Soln 45 Ml ([place])) 1 - 2 sprays NA PRN PRN PRN Reason: Nasal Dryness/Congestion Stop: 03/27/23 22:04 Temazepam (Temazepam 15 Mg Capsule) 15 mg PO HSZ GLORIA Stop: 03/29/23 21:59 Last Admin: 02/27/23 21:09 Dose: 15 mg Vitamin D (Cholecalciferol 1,000 Units 25 Mcg Tab) 2,000 units PO QAM [place] Stop: 03/29/23 14:14 Last Admin: 02/28/23 09:15 Dose: 2,000 units
[2023-02-28] MEDS: LITHIUM CARBONATE 300 MG TAB PO SCH ×2 (21:07→21:08)
[2023-02-28] MEDS: OLANZapine 10 MG TAB PO SCH (21:11)
[2023-02-28] MEDS: TEMAZEPAM 15 MG CAPSULE PO SCH (21:12)
[2023-03-01] MEDS: lamoTRIgine 100 MG TAB PO SCH (08:26)
[2023-03-01] MEDS: CHOLECALCIFEROL 1,000 UNITS 25 MCG TAB PO SCH (08:26)
[2023-03-01] MEDS: LEVOTHYROXINE SODIUM 75 MCG TABLET PO SCH (08:26)
[2023-03-01] MEDS: LISINOPRIL/HCTZ 20/12.5MG 1 TAB TAB PO SCH (08:27)
--- NOTE | 2023-03-01 12:12 | Psychiatric Progress Note ---
Date of Service March 01, 2023 Impression / Recommendations Impression Manuel is a 58 year old woman with a history of bipolar affective disorder with episodes of traci with psychosis who was admitted for acute traci with psychosis. Diagnostically she has a history of episodes of acute traci marked by prominent confusion and fatigue with poor sleep, disorganized behaviors and psychomotor activation typically around the start of the college semester in the fall. Her lithium level is therapeutic at 1.0 with limited response to additional temazepam for insomnia so will start olanzapine at bedtime which she has responded well to the past during episodes of traci. She is deemed in need of psychiatric hospitalization for safety and stabilization, medication management and development of further coping skills and for inability to attend to basic self-care needs due to degree of confusion/traci. MNPR due to psychosis 03/01/2023: Reports having slept better again last night. Brighter affect (was able to smile briefly), more able to complete thoughts and sentences. Somewhat more able to participate in groups. She remains guarded about olanzapine, but attributes no adverse effects to it and is willing to acknowledge that it may be helping with mood. Requesting discharge by Wednesday, in part because of work and in part because she feels more anxious about her family (even far-flung extended family) when she's away from home. : Slept better last night after temazepam, woke feeling rested. She remains anxious, repetitively seeking reassurance but is more able to focus and attend to interaction. No pacing or hand-wringing. At her request reviewed lab results in detail. Has been tolerating addition of olanzapine with no evident adverse effects. 02/27/2023: Pt anxious, pacing and wringing her hands. Asks for reassurance that she'll "ever be able to think clearly". Slept poorly last night despite addition of olanzapine, though she appears to have tolerated addition of that medication without evidence of adverse effects. Reviewed current medication, including the rationale for having added olanzapine (significant mood symptoms despite therapeutic lithium level of 1.0 mmol/L, use of lamotrigine at seemingly appropriate dose). Pt says she's been told she can take varying lamotrigine dose depending on how she feels; I told her I strongly recommend against this as frequent or rapid dose changes are associated with increased risk of toxic epidermal necrolysis. 02/26/2023: Discussed medication treatment options. Discussed risks, benefits and alternatives as she was able to tolerate. She consents to start olanzapine at bedtime to help with sleep and continuing [place] and lamictal for mood stabilization. Reviewed side effects including but not limited to: potential for fatal rash with lamictal (confirmed she has been consistently taking this); risks of dehydration, renal, thyroid, cardiac, drug interactions (NSAIDs, ACEIs, angiotensin receptor antagonists, risks) with lithium, and movement (TD, NMS), cardiac (QTc prolongation), and metabolic (stroke, insulin resistance) and necessity for fasting lipid and glucose labwork and AIMS done with score of 0 with olanzapine. (1) Bipolar affective, manic, severe w/ psych: Plan 03/01/2023: * continue home medication lamotrigine 200 mg daily * continue home medication lithium 750 mg QHS * continue olanzapine 10 mg QHS - started 02/26/2023 * continue temazepam 15 mg QHS PRN insomnia - resumed 02/27/2023 02/28/2023: * continue home medication lamotrigine 200 mg daily * continue home medication lithium 750 mg QHS * continue olanzapine 10 mg QHS - started 02/26/2023 * continue temazepam 15 mg QHS PRN insomnia - resumed 02/27/2023 02/27/2023: * continue home medication lamotrigine 200 mg daily * continue home medication lithium 750 mg QHS * continue olanzapine 10 mg QHS - started 02/26/2023 * glycohemoglobin and fasting lipid panel in AM 02/26/2023: The patient was admitted to the [facility] ([facility] health unit) on q15 min checks (behavioral with suicide precautions) for safety. The patient will participate in group, recreational, and milieu therapies and will be offered additional individual and family sessions as clinically appropriate. -Continue prior to admission [place] 750mg HS, lamictal 200mg daily -Start olanzapine 10mg HS po -Fasting glucose, lipid panel in AM Inventory Assets Strengths: supportive relationships, willing to get treatment Needs: safety and stabilization, medication adjustment, additional coping skills, sleep Suicide Risk Level Suicide Risk Level: Low (q15 min observation checks) (denies SI, feels safe in the hospital, agrees to let nursing know if she feels unsafe or needs further support) Suicide Risk Level Comments: Risk Factors Assessment Male: No : Yes (Georgian) Do You Have Access To A Gun?: No Mental Health Diagnoses: Yes Previous Attempt: No Family History of Suicide: No Previous Psychiatric Hospitalization: Yes Hopelessness: No Protective Factors Assessment 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 Chief Complaint "Slept better". 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 For details, see the "Impression" section. Physical Exam Psychiatric Orientation: alert, oriented to person, oriented to place, oriented to time and cooperative Apperance: appropriately dressed and appropriately groomed Eye Contact: + fair eye contact Motor Behavior: no abnormal motor movements; no psychomotor agitation Speech: normal rate/rhythm/volume of speech Affect: + anxious affect Mood: + anxious mood and + irritable mood Thought Process: + circumstantial thought process and + tangential thought process Thought Content: + cognitive distortions, + derealization and + self deprecation Suicidal Thoughts: denies suicidal thoughts, denies suicidal plan and denies suicidal intent Homicidal Thoughts: denies homicidal thoughts Hallucinations: no auditory hallucinations and no visual hallucinations Cognition: recent memory grossly intact, remote memory grossly intact and attention grossly intact Insight: + limited insight Judgment: + limited judgement Vital Signs (Past 24 Hours) Last Vital Signs Temp 36.5 C 03/01/23 06:44 Pulse 81 03/01/23 06:45 Resp 16 03/01/23 06:44 BP 112/71 03/01/23 06:45 Pulse Ox 95 02/25/23 20:33 O2 Del Method Room Air 02/25/23 21:42 Results & Data ([facility]) Current Inpatient Medications Current Inpatient Medications: Current Inpatient Medications Acetaminophen (Acetaminophen 325 Mg Tab) 650 mg PO Q4H PRN PRN Reason: Headache or Minor Fever Stop: 03/27/23 22:04 Last Admin: 02/28/23 19:46 Dose: 650 mg Al Hydrox/Mg Hydrox/Simethicone (Aluminum/Magnesium Susp 30 Ml Udc) 30 ml PO Q4 H PRN PRN Reason: GI Upset Stop: 03/27/23 22:04 Bismuth Subsalicylate (Bismuth Subsalicylate Liqd 236 Ml) 15 ml PO PRN PRN PRN Reason: Loose Stool Stop: 03/27/23 22:04 Lisinopril/HCTZ (Lisinopril/Hctz 20/12.5mg 1 Tab Tab) 1 tab PO DAILY GLORIA Stop: 03/28/23 13:59 Last Admin: 03/01/23 08:27 Dose: 1 tab Hydroxyzine HCl (Hydroxyzine Hcl 25 Mg Tab) 50 mg PO HSZ PRN PRN Reason: Insomnia Stop: 03/27/23 22:04 Hydroxyzine HCl (Hydroxyzine Hcl 25 Mg Tab) 25 mg PO Q4H PRN PRN Reason: Anxiety Stop: 03/27/23 22:04 Lamotrigine (Lamotrigine 100 Mg Tab) 200 mg PO DAILY GLORIA Stop: 03/28/23 13:59 Last Admin: 03/01/23 08:26 Dose: 200 mg Levothyroxine Sodium (Levothyroxine Sodium 75 Mcg Tablet) 75 mcg PO DAILYBB GLORIA Stop: 03/29/23 07:59 Last Admin: 03/01/23 08:26 Dose: 75 mcg [place] Carbonate ([place] Carbonate 300 Mg Tab) 150 mg PO HS GLORIA Stop: 03/28/23 21:59 Last Admin: 02/28/23 21:07 Dose: 150 mg [place] Carbonate ([place] Carbonate 300 Mg Tab) 600 mg PO HS GLORIA Stop: 03/28/23 21:59 Last Admin: 02/28/23 21:08 Dose: 600 mg Magnesium Hydroxide (Magnesium Hydroxide Susp 30 Ml Udc) 30 ml PO DAILY PRN PRN Reason: Constipation Stop: 03/27/23 22:04 Olanzapine (Olanzapine Zydis 5 Mg Orally Dis. Tab) 5 mg PO TID PRN PRN Reason: agitation/psychosis Stop: 03/27/23 22:05 Last Admin: 02/26/23 13:10 Dose: 5 mg Olanzapine (Olanzapine 10 Mg Tab) 10 mg PO HS GLORIA Stop: 03/28/23 21:59 Last Admin: 02/28/23 21:11 Dose: 10 mg Sodium Chloride (Sodium Chloride 0.65% Na Soln 45 Ml (Hannah)) 1 - 2 sprays NA PRN PRN PRN Reason: Nasal Dryness/Congestion Stop: 03/27/23 22:04 Temazepam (Temazepam 15 Mg Capsule) 15 mg PO HSZ GLORIA Stop: 03/29/23 21:59 Last Admin: 02/28/23 21:12 Dose: 15 mg Vitamin D (Cholecalciferol 1,000 Units 25 Mcg Tab) 2,000 units PO QAM GLORIA Stop: 03/29/23 14:14 Last Admin: 03/01/23 08:26 Dose: 2,000 units
[2023-03-01] MEDS: LITHIUM CARBONATE 300 MG TAB PO SCH ×2 (21:03→21:04)
[2023-03-01] MEDS: OLANZapine 10 MG TAB PO SCH (21:05)
[2023-03-01] MEDS: TEMAZEPAM 15 MG CAPSULE PO SCH ×2 (21:07→21:19)
[2023-03-02] MEDS: CHOLECALCIFEROL 1,000 UNITS 25 MCG TAB PO SCH (08:17)
[2023-03-02] MEDS: LISINOPRIL/HCTZ 20/12.5MG 1 TAB TAB PO SCH (08:17)
[2023-03-02] MEDS: LEVOTHYROXINE SODIUM 75 MCG TABLET PO SCH (08:17)
[2023-03-02] MEDS: lamoTRIgine 100 MG TAB PO SCH (08:17)
--- NOTE | 2023-03-02 15:05 | Discharge Summary ---
Date of Service March 02, 2023 History of Present Illness [place] presented to the ED with her son for worsening confusion and fatigue concerning for an episode of traci. 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 While in the ED she was initially somewhat able to participate in assessment causing them to consider sending her home but then demonstrated increased confusion, was talking back and forth between Turkmen and Guamanian rapidly and showing ongoing psychomotor activation consistent with acute traci and necessitating inpatient psychiatric admission. After being admitted to [facility] last night she was quite confused, thought she needed to leave and was reminded that she had only just arrived. She then accepted prn temazepam but still hardly slept, only about 2 hours, and was then awake and confused about where to use the restroom (forgetting it was in her room) and packing up all her belongings thinking she needed to leave at 3am. She remained hyperverbal and pacing in the hallways all morning until redirected to her room to attempt to rest but remained awake all day even after additional prn of olanzapine. At times today she has been calling out (unclear to who/seems to be responding to possible internal stimuli) and tearful at times. She was not able to tolerate attending any groups nor was she able to participate fully with psychiatric interview nor social history assessment due to her confusion and delayed thought process. She is able to state she's feeling tired but has not been able to sleep over the last 3-4 days. She started taking temazepam 15mg HS prn at the advise of her outpatient psychiatrist over the last few days but has still been unable to sleep. She agrees she is likely now in an episode of traci. States she's been taking her lithium and other medications as prescribed. Physical Exam Psychiatric Orientation: alert, oriented to person, oriented to place, oriented to time and cooperative Apperance: appropriately dressed and appropriately groomed Eye Contact: good eye contact Motor Behavior: no abnormal motor movements; no psychomotor agitation Speech: normal rate/rhythm/volume of speech Affect: + anxious affect Mood: + anxious mood Thought Process: + circumstantial thought process Thought Content: + cognitive distortions and + self deprecation Suicidal Thoughts: denies suicidal thoughts, denies suicidal plan and denies suicidal intent Homicidal Thoughts: denies homicidal thoughts Hallucinations: no auditory hallucinations and no visual hallucinations Cognition: recent memory grossly intact, remote memory grossly intact, attention grossly intact and language grossly intact Insight: + fair insight Judgment: + fair judgement Vital Signs (Past 24 Hours) Last Vital Signs Temp 36.6 C 03/02/23 12:12 Pulse 80 03/02/23 12:12 Resp 18 03/02/23 12:12 BP 112/71 03/02/23 12:12 Pulse Ox 95 03/02/23 12:12 O2 Del Method Room Air 02/25/23 21:42 See admission H&P and DOD assessment. Principal Diagnosis Bipolar I Disorder, MixedSevere, with Psychotic Features Psychiatric Data See daily stay summary. In short, safety was maintained and the patient was cooperative with care. Medication changes included addition of olanzapine and resumption of temazepam and they tolerated this well. A family session was [held] and safety plan was completed prior to discharge. Day of Discharge Assessment Today the patient voices readiness for discharge. They note improvement in mood and deny thoughts to harm self or others. Thoughts remain organized and they are improved from admission. There is no evidence of psychosis. They agree to take mediations as prescribed and keep follow-up appointments. They are stable for discharge to outpatient level of care. Transition of Care Transition Of Care Record: was reviewed with the patient Advance Directives Advance Directives Information Provided: Yes Advance Directives: No Mental Health Advance Directive: No Advance Directives on File: No Living Will: No Power of Early Childhood Educator Aide: No Advance Directives Reason:: Declines as Mental Health Visit. 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 Relationships: Yes Supportive Family: Yes Good Rapport with Provider: Yes Tobacco Cessation at Discharge Tobacco Cessation Medication Prescribed at Discharge: Not Applicable/Non-Smoker Total Time Total Time Spent: Greater Than 30 Minutes Total Time Includes: Examination of the patient, Discharge Planning, Medication Reconciliation and As well as (documentation) Discharge Data Lab Results 02/25/23 02/25/23 02/25/23 15:40 15:42 15:42 WBC 9.50 RBC 4.64 Hgb 13.3 Hct 39.7 MCV 85.6 MCH 28.7 MCHC 33.5 RDW Std Deviation 39.2 RDW Coeff of Page 12.6 Plt Count 306 MPV 8.7 L Immature Gran % (Auto) 0.3 Neut % (Auto) 69.3 Lymph % (Auto) 23.3 [place] % (Auto) 5.1 Eos % (Auto) 1.3 Baso % (Auto) 0.7 Neut # (Auto) 6.59 H Lymph # (Auto) 2.21 [place] # (Auto) 0.48 Eos # (Auto) 0.12 Baso # (Auto) 0.07 Immature Gran # (Auto) 0.03 Sodium 135 L Potassium 4.2 Chloride 105 Carbon Dioxide 23 Anion Gap 7 BUN 15 Creatinine 0.82 Est Cr Clr Drug Dosing Not Reportable Est GFR ( Amer) 92.1 Est GFR (Non-Af Amer) 79.4 BUN/Creatinine Ratio 18.3 Glucose 85 Estimat Average Glucose Hemoglobin A1c Calcium 10.5 H Total Bilirubin 0.6 AST 17 ALT 15 Alkaline Phosphatase 91 Total Protein 7.0 Albumin 4.6 Globulin 2.4 L Albumin/Globulin Ratio 1.9 Triglycerides Cholesterol LDL Cholesterol, Calc VLDL Cholesterol, Calc HDL Cholesterol Cholesterol/HDL Ratio TSH Urine Color Urine Appearance Urine pH Ur Specific [place] Urine Protein Urine Glucose (UA) Urine Ketones Urine Blood Urine Nitrite Urine Bilirubin Urine Urobilinogen Ur Leukocyte Esterase Urine WBC (Auto) Urine RBC (Auto) U Hyaline Cast (Auto) U Epithel Cells (Auto) Urine Bacteria (Auto) Salicylates Urine Opiates Screen Ur Methadone, Qual Acetaminophen Urine Barbiturates Ur Phencyclidine (PCP) U Amphetamin/Meth Scrn MDMA (Ecstasy) Screen U Benzodiazepines Scrn [place] Ur Cocaine Metabolite U Marijuana (THC) Screen Ethyl Alcohol mg/dL SARS-CoV-2, RNA, NAAT NEGATIVE 02/25/23 02/25/23 02/25/23 15:42 15:42 15:42 WBC RBC Hgb Hct MCV MCH MCHC RDW Std Deviation RDW Coeff of Page Plt Count MPV Immature Gran % (Auto) Neut % (Auto) Lymph % (Auto) [place] % (Auto) Eos % (Auto) Baso % (Auto) Neut # (Auto) Lymph # (Auto) [place] # (Auto) Eos # (Auto) Baso # (Auto) Immature Gran # (Auto) Sodium Potassium Chloride Carbon Dioxide Anion Gap BUN Creatinine Est Cr Clr Drug Dosing Est GFR ( Amer) Est GFR (Non-Af Amer) BUN/Creatinine Ratio Glucose Estimat Average Glucose Hemoglobin A1c Calcium Total Bilirubin AST ALT Alkaline Phosphatase Total Protein Albumin Globulin Albumin/Globulin Ratio Triglycerides Cholesterol LDL Cholesterol, Calc VLDL Cholesterol, Calc HDL Cholesterol Cholesterol/HDL Ratio TSH 2.719 Urine Color Urine Appearance Urine pH Ur Specific [place] Urine Protein Urine Glucose (UA) Urine Ketones Urine Blood Urine Nitrite Urine Bilirubin Urine Urobilinogen Ur Leukocyte Esterase Urine WBC (Auto) Urine RBC (Auto) U Hyaline Cast (Auto) U Epithel Cells (Auto) Urine Bacteria (Auto) Salicylates < 3.0 L Urine Opiates Screen Ur Methadone, Qual Acetaminophen < 3 L Urine Barbiturates Ur Phencyclidine (PCP) U Amphetamin/Meth Scrn MDMA (Ecstasy) Screen U Benzodiazepines Scrn [place] 1.0 Ur Cocaine Metabolite U Marijuana (THC) Screen Ethyl Alcohol mg/dL < 10.0 SARS-CoV-2, RNA, NAAT 02/25/23 02/25/23 02/28/23 18:53 18:53 07:34 WBC RBC Hgb Hct MCV MCH MCHC RDW Std Deviation RDW Coeff of Page Plt Count MPV Immature Gran % (Auto) Neut % (Auto) Lymph % (Auto) [place] % (Auto) Eos % (Auto) Baso % (Auto) Neut # (Auto) Lymph # (Auto) [place] # (Auto) Eos # (Auto) Baso # (Auto) Immature Gran # (Auto) Sodium Potassium Chloride Carbon Dioxide Anion Gap BUN Creatinine Est Cr Clr Drug Dosing Est GFR ( Amer) Est GFR (Non-Af Amer) BUN/Creatinine Ratio Glucose Estimat Average Glucose 111 Hemoglobin A1c 5.5 Calcium Total Bilirubin AST ALT Alkaline Phosphatase Total Protein Albumin Globulin Albumin/Globulin Ratio Triglycerides Cholesterol LDL Cholesterol, Calc VLDL Cholesterol, Calc HDL Cholesterol Cholesterol/HDL Ratio TSH Urine Color Yellow Urine Appearance Clear Urine pH 6.5 Ur Specific [place] 1.013 Urine Protein Negative Urine Glucose (UA) Negative Urine Ketones 1+ H Urine Blood Negative Urine Nitrite Negative Urine Bilirubin Negative Urine Urobilinogen Negative Ur Leukocyte Esterase 3+ H Urine WBC (Auto) >30 H Urine RBC (Auto) 0-4 U Hyaline Cast (Auto) 0 U Epithel Cells (Auto) >30 H Urine Bacteria (Auto) Negative Salicylates Urine Opiates Screen Neg Ur Methadone, Qual Neg Acetaminophen Urine Barbiturates Neg Ur Phencyclidine (PCP) Neg U Amphetamin/Meth Scrn Neg MDMA (Ecstasy) Screen Neg U Benzodiazepines Scrn Neg [place] Ur Cocaine Metabolite Neg U Marijuana (THC) Screen Neg Ethyl Alcohol mg/dL SARS-CoV-2, RNA, NAAT 02/28/23 07:34 WBC RBC Hgb Hct MCV MCH MCHC RDW Std Deviation RDW Coeff of Page Plt Count MPV Immature Gran % (Auto) Neut % (Auto) Lymph % (Auto) [place] % (Auto) Eos % (Auto) Baso % (Auto) Neut # (Auto) Lymph # (Auto) [place] # (Auto) Eos # (Auto) Baso # (Auto) Immature Gran # (Auto) Sodium Potassium Chloride Carbon Dioxide Anion Gap BUN Creatinine Est Cr Clr Drug Dosing Est GFR ( Amer) Est GFR (Non-Af Amer) BUN/Creatinine Ratio Glucose Estimat Average Glucose Hemoglobin A1c Calcium Total Bilirubin AST ALT Alkaline Phosphatase Total Protein Albumin Globulin Albumin/Globulin Ratio Triglycerides 60 Cholesterol 166 LDL Cholesterol, Calc 102 VLDL Cholesterol, Calc 12 HDL Cholesterol 52 Cholesterol/HDL Ratio 3.2 TSH Urine Color Urine Appearance Urine pH Ur Specific [place] Urine Protein Urine Glucose (UA) Urine Ketones Urine Blood Urine Nitrite Urine Bilirubin Urine Urobilinogen Ur Leukocyte Esterase Urine WBC (Auto) Urine RBC (Auto) U Hyaline Cast (Auto) U Epithel Cells (Auto) Urine Bacteria (Auto) Salicylates Urine Opiates Screen Ur Methadone, Qual Acetaminophen Urine Barbiturates Ur Phencyclidine (PCP) U Amphetamin/Meth Scrn MDMA (Ecstasy) Screen U Benzodiazepines Scrn [place] Ur Cocaine Metabolite U Marijuana (THC) Screen Ethyl Alcohol mg/dL SARS-CoV-2, RNA, NAAT Hospital Course (1) Bipolar affective, manic, severe w/ psych: Plan 03/01/2023: * continue home medication lamotrigine 200 mg daily * continue home medication lithium 750 mg QHS * continue olanzapine 10 mg QHS - started 02/26/2023 * continue temazepam 15 mg QHS PRN insomnia - resumed 02/27/2023 02/28/2023: * continue home medication lamotrigine 200 mg daily * continue home medication lithium 750 mg QHS * continue olanzapine 10 mg QHS - started 02/26/2023 * continue temazepam 15 mg QHS PRN insomnia - resumed 02/27/2023 02/27/2023: * continue home medication lamotrigine 200 mg daily * continue home medication lithium 750 mg QHS * continue olanzapine 10 mg QHS - started 02/26/2023 * glycohemoglobin and fasting lipid panel in AM 02/26/2023: The patient was admitted to the [facility] ([facility] inpatient mental health unit) on q15 min checks (behavioral with suicide precautions) for safety. The patient will participate in group, recreational, and milieu therapies and will be offered additional individual and family sessions as clinically appropriate. -Continue prior to admission [place] 750mg HS, lamictal 200mg daily -Start olanzapine 10mg HS po -Fasting glucose, lipid panel in AM Mental Health & Subst Abuse Tx Psychiatrist Name of Psychiatrist: Dr. Welch Psychiatrist's Psychiatric Appointment Comment: Telehealth- please follow up to schedule Psychiatrist Release of Information: Obtained, Reviewed and Signed Post Discharge Appointments Primary Care Physician Name Of Family Doctor/PCP: [facility] - Dr. Castillo Primary Care Date of Future Appointment with PCP: 03/11/23 Time of Appointment with PCP: 11:30 AM Provider Appointment Comment: [address], [address], [place] [address] Primary Care Release of Information: Obtained, Reviewed and Signed Smoking Cessation Counseling Tobacco Cessation Medication Prescribed at Discharge: Not Applicable/Non-Smoker Contact Information Discharge Discharge Address: [address] [place] [address], [place] [address] Discharge Plan Discharge Items Patient Disposition: Home - Self-Care Reason For Visit: BIPOLAR DISORDER MANIC EPISODE Discharge Diagnosis: Bipolar I Disorder, MixedSevere, with Psychotic Features Activity: Resume your previous activity Non-emergency contact: Primary Care Provider and Psychiatrist Call non-emergency contact if: you have any medication questions and your symptoms worsen Follow-up/Referrals: Jhonathan Castillo, [Primary Care Provider] - Diet: Regular Addtl Attending Provider Instructions: SPECIAL CARE INSTRUCTIONS: 1. Follow through with your scheduled aftercare appointments. If unable to keep an appointment, please call to reschedule. 2. Take your medication only as prescribed. Medication should not be changed or stopped without the approval of your doctor. In the event of worsening symptoms or concerns about side effects, contact your doctor immediately. 3. Utilize new healthy coping skills, anger management skills, and stress management skills learned during your hospitalization. Journal feelings and process them with a support person. Identify stressors or situations that may result in relapse, deterioration or inappropriate behaviors and develop a plan to deal with those issues. 4. If your coping skills are ineffective and you are in crisis, contact your outpatient providers for direction. If unable to reach your providers, please call the [facility] CRISIS LINE AT , go to the [facility] walk-in center at [address] [place] [address] [facility], or go to the closest Emergency Room. 5. Avoid alcohol and un-prescribed drugs. 6. You have been provided with the Mental Health Advance Directives Pamphlet for your review. 7. Your condition is stable for discharge to outpatient level of care, but recovery is an ongoing process. Ifthoughts to harm yourself or others return, follow the safety plan developed during your stay. Planning for a safe return home includes securing weapons. Our treatment team recommends weaponsbe removed from the home until your outpatient provider reassesses your progress. In rare cases where the items themselvescannot be removed, guns and ammunitionshould be secured separatelyand keys stored by a reliable personoutside of the home. If you were admitted on an involuntary commitment, the police or other legal authorities may be involved in this process. AFTERCARE APPOINTMENTS: * Please call your insurance company prior to your scheduled appointment to confirm your aftercare providers are covered. Take your insurance information to your appointments. WHO TO CALL AND WHEN: Medical Emergencies: For questions or emergencies related to your hospital stay, please contact the Inpatient Behavioral Health Unit at [phone]. A fur trimming machine operator is on-call 25/01 for the Behavioral Health Unit for emergencies At any time you feel your situation is an emergency, you may also call 911 immediately. Pending Studies at Discharge: No Stand-Alone Forms: [facility], Smoking Cessation Medications and DC Order Prescriptions: New olanzapine 10 mg Tablet 10 mg PO HS 30 Days Qty: 30 0RF temazepam 15 mg Capsule 15 mg PO HSZ 30 Days Qty: 30 0RF Continued lisinopril-hydrochlorothiazide 20-12.5 mg tablet 1 tab PO DAILY Qty: 90 3RF cholecalciferol (vitamin D3) [Vitamin D3] 50 mcg (2,000 unit) capsule 2,000 unit PO QAM Qty: 90 3RF lithium carbonate 150 mg capsule 150 mg PO HS lithium carbonate 300 mg capsule 600 mg PO HS lamotrigine 200 mg tablet 200 mg PO DAILY Qty: 1 0RF Rx Instructions: Prescribed by Yuri Psychiatrist levothyroxine 75 mcg tablet 75 mcg PO DAILYBB 30 Days Qty: 60 3RF Discharge Orders: Discharge Order (Routine); Ordered 03/02/23 Ordered By: Melchor Mcdonald Admission Data Admit Date/Time: 02/25/23 21:26 Attending Provider: Ainsley Mckeon Admit Provider: Ainsley Mckeon Primary Care Provider: Jhonathan Castillo Other Interventions: Discharge Summary Assessment (RN) Last Done: 03/02/23 12:12 PSY Interdisciplinary Discharge Planning Last Done: 03/02/23 12:31 Coding Level of Care Code 48786 D/C day mgmt > 30 min Diagnoses Bipolar affective, manic, severe w/ psych F31.2
== END 2023-03-02 14:36 | disposition home or self-care (01) | DRG 885 ==
LOC: ED 14:32 → 3S 21:26
DX: I10 Essential (primary) hypertension; Z79.899 Other long term (current) drug therapy; E03.9 Hypothyroidism, unspecified; Z87.891 Personal history of nicotine dependence; F31.2 Bipolar disorder, current episode manic severe with psychotic features; Z79.890 Hormone replacement therapy